=== PATIENT | female | born 1980 | race African-American/Black ===

== ENCOUNTER 2016-09-06 16:56 | Emergency (ER) | payer OTHER ==
[~2016-09-06] VITALS: Ht 170.2 cm; Wt 93.0 kg
--- NOTE | 2016-09-06 17:31 | PHYS DOC ---
Past Medical History Past Medical History: GERD, Other Additional Past Medical Histor: gestational diabetes Past Surgical History: Cholecystectomy, , Tubal ligation Additional Past Surgical Histo: dilation and curretage Alcohol Use: Occasionally Drug Use: None Adult General Chief Complaint Chief Complaint: FLU SYMPTOM [facility] HPI Patient is a 36 year old female presents emergency department stating that she was running a fever of 102 last night. She states that she's been taken Tylenol and DayQuil for the fever chills and generalized body aches and discomfort. Patient states she's had a cough has been nonproductive. She'll states that she has had shortness of air with chest discomfort in the center of her chest. No radiation of pain or discomfort. Patient states she has increased shortness of breath with ambulation. Review of Systems Review of Systems Constitutional: hx of fever Eyes: Denies change in visual acuity, redness, or eye pain [] HENT: Denies nasal congestion or sore throat [] Respiratory: cough c/o shortness of breath with exertion Cardiovascular: No additional information not addressed in HPI [] GI: Denies abdominal pain, nausea, vomiting, bloody stools or diarrhea [] : Denies dysuria or hematuria [] Musculoskeletal: Denies back pain or joint pain [] Integument: Denies rash or skin lesions [] Neurologic: Denies headache, focal weakness or sensory changes [] Current Medications Current Medications Current Medications Medications (Trade) Dose Ordered Sig/Katiana Start Time Stop Time Status Last Admin Dose Admin Albuterol/ Ipratropium (Duoneb) 3 ml 1X ONCE 09/06/16 17:45 09/06/16 17:46 DC 09/06/16 17:47 3 ML Ibuprofen (Motrin) 800 mg 1X ONCE 09/06/16 18:00 09/06/16 18:01 DC 09/06/16 17:55 800 MG Allergies Allergies Allergies Coded Allergies Type Severity Reaction Last Updated Verified No Known Drug Allergies 09/19/13 No Physical Exam Physical Exam Constitutional: Well developed, well nourished, no acute distress, non-toxic appearance. [] HENT: Normocephalic, atraumatic, bilateral external ears normal, oropharynx moist, no oral exudates, nose normal. Bilateral tympanic membranes appear to be normal. Eyes: PERRLA, EOMI, conjunctiva normal, no discharge. [] Neck: Normal range of motion, no tenderness, supple, no stridor. [] Cardiovascular:Heart rate regular rhythm, no murmur [] Lungs & Thorax: Bilateral breath sounds with bilateral wheezes noted per lower basis. Skin: Warm, dry, no erythema, no rash. [] Back: No tenderness Extremities: No tenderness, no cyanosis, no clubbing, ROM intact, no edema. [] Neurologic: Alert and oriented X 3, normal motor function, normal sensory function, no focal deficits noted. [] Psychologic: Affect normal, judgement normal, mood normal. [] Current Patient Data Vital Signs Vital Signs Date Time Temp Pulse Resp B/P Pulse Ox O2 Delivery O2 Flow Rate FiO2 09/06/16 17:49 100 Room Air 09/06/16 17:25 101.8 105 16 101.8 Lab Values Laboratory Tests Test 09/06/16 17:30 Influenza Type A Antigen Negative (NEGATIVE) Influenza Type B Antigen Negative (NEGATIVE) EKG EKG [] Radiology/Procedures Radiology/Procedures [] Course & Med Decision Making Course & Med Decision Making Pertinent Labs and Imaging studies reviewed. (See chart for details) X-ray was negative per Dr. Woods. Patient was provided with a respiratory treatment which she states she is able to breathe much easier now breath sounds are clear bilaterally. Influenza swabs were negative. She was provided with ibuprofen here in the emergency department. Temperature has decreased to 99.6 after receiving the ibuprofen. BP 149/91. Patient be encouraged to monitor her blood pressure for the next week and follow-up with her primary care physician. She'll be discharged home with Zithromax, prednisone and an pro-air. Signs and symptoms to return back to emergency department as been provided. Patient agrees with discharge instructions, treatment regimens and follow-up recommendations. [] Dragon Disclaimer Dragon Disclaimer This electronic medical record was generated, in whole or in part, using a voice recognition dictation system. Departure Departure Impression: Primary Impression: Bronchitis Disposition: 01 HOME, SELF-CARE Condition: STABLE Referrals: NO PCP (PCP) Patient Instructions: Acute Bronchitis, [id number] Additional Instructions: Activity as tolerated Patient is prescribed. Tylenol and ibuprofen for fever chills or generalized body aches and discomfort. Drink plenty of fluids. Monitor your blood pressure and follow-up with primary care physician Follow-up with her primary care physician within the week. Return to emergency department for signs and symptoms of become worse. Scripts Albuterol Sulfate (Proair Hfa Inhaler)8.5 Gm [id number] Puff INH PRN Q6HRS PRN SHORTNESS OF BREATH #1 INHALER Prov:REY BRUNO APRN 09/06/16 Prednisone 20 Mg [id number] Mg PO DAILY #10 TAB Prov:REY BRUNO APRN 09/06/16 Azithromycin (Zithromax)250 Mg [id number] Mg PO DAILY ANTI-BIOTIC #6 TAB Ref 0 Take 2 tablets today then 1 tablet daily until gone Prov:REY BRUNO APRN 09/06/16 REY BRUNO APRN Sep 06, 2016 17:31
[2016-09-06] MEDS ORDERED: IPRATRPIUM/ALBUTEROL 0.5/2.5MG 3 ML NEBU. NEB ONE (17:45)
[2016-09-06] MEDS ORDERED: IBUPROFEN 800 MG TABLET. PO ONE (18:00)
[2016-09-06 18:02] LABS: OBC FLU VALID
[2016-09-06 18:19] VITALS: BP 149/91
[2016-09-06] MEDS ORDERED: PROAIR HFA8.5 GM INH (18:23)
[2016-09-06] MEDS ORDERED: AZIT250T PO (18:23)
[2016-09-06] MEDS ORDERED: PRED20TA PO (18:23)
--- NOTE | 2016-09-07 08:53 | RAD ---
Chest, 2 views, 09/06/2016: History: Fever, cough, congestion Comparison is made to a study from 08/15/2008. The heart size and pulmonary vascularity are normal. The lungs are clear. There is no evidence of pleural fluid. IMPRESSION: No acute cardiopulmonary abnormality is detected.
== END 2016-09-06 18:27 | disposition home or self-care (01) ==
LOC: ER 16:56
DX: J40 Bronchitis, not specified as acute or chronic (principal); K21.9 Gastro-esophageal reflux disease without esophagitis; Z90.49 Acquired absence of other specified parts of digestive tract; Z98.51 Tubal ligation status
CPT/HCPCS: 71020; 87804; 94250; 94640; 99284; J7620

== ENCOUNTER 2016-09-09 08:49 | Inpatient (IN) | payer OTHER ==
[~2016-09-09] VITALS: Ht 170.2 cm; Wt 93.0 kg
[~2016-09-09 08:49] MED LIST: AZIT250T PO; PRED20TA PO; PROAIR HFA8.5 GM INH
[2016-09-09] MEDS ORDERED: IV NORMAL SALINE 1000ML BAG 1,000 ML IV SCH (09:03)
[2016-09-09] MEDS ORDERED: MORPHINE SULFATE 10 MG/ML VIAL. IV ONE (09:15)
[2016-09-09] MEDS ORDERED: IPRATRPIUM/ALBUTEROL 0.5/2.5MG 3 ML NEBU. NEB ONE ×2 (09:15→12:00)
[2016-09-09] MEDS ORDERED: 0.9 % SODIUM CHLORIDE 10 ML DISP.SYRIN. IV ONE (09:15)
--- NOTE | 2016-09-09 09:15 | PHYS DOC ---
Past Medical History Past Medical History: GERD, Other Additional Past Medical Histor: gestational diabetes Past Surgical History: Cholecystectomy, , Tubal ligation Additional Past Surgical Histo: dilation and curretage Alcohol Use: Occasionally Drug Use: None Adult General Chief Complaint Chief Complaint: COUGH HPI HPI Patient is a 36 year old female presents emergency Department today with complaint of worsening cough and chest pain. Patient was seen here 3 days ago for cough, fever and body aches that began approximately 24 hours prior to being seen. She had a chest x-ray done at that time that did not show any evidence of pneumonia. She was placed on azithromycin, prednisone and albuterol. Patient states that she's progressively gotten worse over the past 3 days. She states that she's been having increasing chest pain since that period of time as well. She reports several episodes of cough with posttussive emesis. She states that she has decreased appetite as well. Patient denies any history of cardiopulmonary disease. Prior to her present illness, she had not been outside [facility], hospitalized on antibiotics within the previous 90 days. She does not have a current primary care doctor. Review of Systems Review of Systems Constitutional: Denies fever or chills [] Eyes: Denies change in visual acuity, redness, or eye pain [] HENT: Denies nasal congestion or sore throat [] Respiratory: Denies cough or shortness of breath [] Cardiovascular: No additional information not addressed in HPI [] GI: Denies abdominal pain, nausea, vomiting, bloody stools or diarrhea [] : Denies dysuria or hematuria [] Musculoskeletal: Denies back pain or joint pain [] Integument: Denies rash or skin lesions [] Neurologic: Denies headache, focal weakness or sensory changes [] Endocrine: Denies polyuria or polydipsia [] Current Medications Current Medications Current Medications Medications (Trade) Dose Ordered Sig/Katiana Start Time Stop Time Status Last Admin Dose Admin Albuterol/ Ipratropium (Duoneb) 3 ml 1X ONCE 09/09/16 09:15 09/09/16 09:16 DC 09/09/16 09:37 3 ML Info (Do NOT chart on this entry -- for MONITORING) 1 each PRN DAILY PRN 09/09/16 10:30 09/11/16 10:29 Iohexol (Omnipaque 300 Mg/ml) 75 ml 1X ONCE 09/09/16 10:15 09/09/16 10:16 DC 09/09/16 10:14 75 ML Morphine Sulfate 5 mg 1X ONCE 09/09/16 09:15 09/09/16 09:16 DC 09/09/16 09:30 5 MG Piperacillin Sod/ Tazobactam Sod 1 each 1 each PRN DAILY PRN 09/09/16 09:30 Piperacillin Sod/ Tazobactam Sod/ Sodium Chloride (Zosyn/Iv Sodium Chloride 0.9% 100ml) 100 ml @ 200 mls/hr 1X ONCE 09/09/16 09:45 09/09/16 10:14 DC 09/09/16 10:05 200 MLS/HR Sodium Chloride (Iv Sodium Chloride 0.9% 1000ml Bag) 1,000 ml @ 1,000 mls/hr Q1H 09/09/16 09:03 09/09/16 10:02 DC 09/09/16 09:30 1,000 MLS/HR Sodium Chloride 10 ml 10 ml 1X ONCE 09/09/16 09:15 09/09/16 09:16 DC Vancomycin HCl (Vanco Per Pharmacy) 1 each PRN DAILY PRN 09/09/16 09:30 Vancomycin HCl 2 gm/Sodium Chloride 500 ml @ 250 mls/hr 1X ONCE 09/09/16 10:00 09/09/16 11:59 DC 09/09/16 10:55 250 MLS/HR Allergies Allergies Allergies Coded Allergies Type Severity Reaction Last Updated Verified No Known Drug Allergies 09/19/13 No Physical Exam Physical Exam Constitutional: Well developed, well nourished,mild distress, non-toxic appearance. Patient is holding her ribs and coughing. She is crying. HENT: Normocephalic, atraumatic, bilateral external ears normal, oropharynx moist, no oral exudates, nose normal. [] Eyes: PERRLA, EOMI, conjunctiva normal, no discharge. [] Neck: Normal range of motion, no tenderness, supple, no stridor. [] Cardiovascular:Heart rate 124-132 regular rhythm, no murmur Lungs & Thorax: Patient does not demonstrate respiratory distress or respiratory fatigue. She does have decreased lung sounds bilaterally. This is with poor inspiratory effort is she states that it hurts when she takes deep breaths in. Oxygen saturation with good waveform is 92%. Skin: Patient's skin is warm and intact. She is diaphoretic. Back: No tenderness, no CVA tenderness. [] Extremities: No tenderness, no cyanosis, no clubbing, ROM intact, no edema. [] Neurologic: Alert and oriented X 3, normal motor function, normal sensory function, no focal deficits noted. [] Psychologic: Affect normal, judgement normal, mood normal. Current Patient Data Vital Signs Vital Signs Date Time Temp Pulse Resp B/P Pulse Ox O2 Delivery O2 Flow Rate FiO2 09/09/16 11:29 100 146/97 96 09/09/16 10:59 22 09/09/16 09:38 Room Air 09/09/16 08:58 99.0 99.0 Lab Values Laboratory Tests Test 09/09/16 09:27 White Blood Count 3.6x10^3/uL (4.0-11.0) L Red Blood Count 6.16x10^6/uL (3.50-5.40) H Hemoglobin 12.7g/dL (12.0-15.5) Hematocrit 41.3% (36.0-47.0) Mean Corpuscular Volume 67fL (79-100) L Mean Corpuscular Hemoglobin 21pg (25-35) L Mean Corpuscular Hemoglobin Concent 31g/dL (31-37) Red Cell Distribution Width 18.3% (11.5-14.5) H Platelet Count 322x10^3/uL (140-400) Neutrophils (%) (Auto) 40% (31-73) Lymphocytes (%) (Auto) 49% (24-48) H Monocytes (%) (Auto) 10% (0-9) H Eosinophils (%) (Auto) 0% (0-3) Basophils (%) (Auto) 1% (0-3) Neutrophils # (Auto) 1.4x10^3uL (1.8-7.7) L Lymphocytes # (Auto) 1.8x10^3/uL (1.0-4.8) Monocytes # (Auto) 0.3x10^3/uL (0.0-1.1) Eosinophils # (Auto) 0.0x10^3/uL (0.0-0.7) Basophils # (Auto) 0.0x10^3/uL (0.0-0.2) Platelet Estimate Adequate (ADEQUATE) Large Platelets Present Hypochromasia Marked Anisocytosis Present Microcytosis Marked Sodium Level 145mmol/L (136-145) Potassium Level 3.2mmol/L (3.5-5.1) L Chloride Level 105mmol/L (98-107) Carbon Dioxide Level 26mmol/L (21-32) Anion Gap 14 (6-14) Blood Urea Nitrogen 9mg/dL (7-20) Creatinine 1.2mg/dL (0.6-1.0) H Estimated GFR (Cockcroft-Gault) 60.8 BUN/Creatinine Ratio 8 (6-20) Glucose Level 138mg/dL (70-99) H Lactic Acid Level 1.6mmol/L (0.4-2.0) Calcium Level 9.5mg/dL (8.5-10.1) Total Bilirubin 0.7mg/dL (0.2-1.0) Aspartate Amino Transferase (AST) 22U/L (15-37) Alanine Aminotransferase (ALT) 22U/L (14-59) Alkaline Phosphatase 77U/L (46-116) Total Protein 9.2g/dL (6.4-8.2) H Albumin 4.4g/dL (3.4-5.0) Albumin/Globulin Ratio 0.9 (1.0-1.7) L Laboratory Tests 09/09/16 09:27 Laboratory Tests 09/09/16 09:27 EKG EKG Twelve-lead EKG performed at 955 shows a sinus tachycardia heart rate 118 bpm. There is no pathologic ST elevation or depression. MT interval is 120 ms with a QRS cheondoism of 82 ms and a QT duration of 504 ms. Radiology/Procedures Radiology/Procedures [ [facility] [address] [place], [place] [id number] IMAGING REPORT Signed PATIENT: RAE ROB ACCOUNT: [id number] : 1980 LOCATION: ER AGE: 36 SEX: F EXAM STATUS: REG ER ORD. PHYSICIAN: CHRISTOS JEFFERS REASON: chest pain, hypoxia, cough PROCEDURE: CTA CHEST CT of the chest with contrast, 09/09/2016: History: Chest pain and cough Multidetector CT imaging was performed following an IV bolus injection of iodinated contrast material. 2 injections were necessary due to difficulties with breath hold on the first sequence. Multiplanar reconstructions were produced including coronal MIP images. There are streak artifacts on these scans related to the patient's size. No filling defects are evident in the central pulmonary arteries to suggest pulmonary emboli. The thoracic aorta is of normal caliber. Granulomatous calcifications are present in the mediastinum and at the right hilum. No mediastinal or hilar adenopathy is evident. Mild groundglass opacities in the posterior aspects of both lungs most likely represent atelectasis. No dense pulmonary consolidation is seen. No significant pleural fluid is evident. IMPRESSION: 1. No CT evidence of central pulmonary emboli. 2. Mild dependent atelectasis in both lungs. PQRS Compliance Statement: One or more of the following individualized dose reduction techniques were utilized for this examination: 1. Automated exposure control 2. Adjustment of the mA and/or kV according to patient size 3. Use of iterative reconstruction technique DICTATED and SIGNED BY: RUBENS CHRISTIANSON MD DATE: 09/09/16 1034 CC: CHRISTOS JEFFERS; RENE LEYVA MD; NO PCP ~ Course & Med Decision Making Course & Med Decision Making Patient is obviously ill. Maintains in somewhat of a distraught state over her current illness. She presents at someone may have an as yet undiagnosed pulmonary disease or soft tissue connective disease. She has obviously been having problems with fever and has been getting worse even while on antibiotic therapy. Dragon Disclaimer Dragon Disclaimer This electronic medical record was generated, in whole or in part, using a voice recognition dictation system. Departure Departure Impression: Primary Impression: Tachycardia Additional Impressions: Bronchitis Hypovolemia Dyspnea Disposition: ADMITTED INPATIENT Admitting Physician: Abril Gibbs Condition: STABLE Referrals: NO PCP (PCP) Problem Qualifiers CHRISTOS JEFFERS Sep 09, 2016 09:15
[2016-09-09] MEDS ORDERED: PIP/TAZO PER PHARMACY MC PRN (09:30)
[2016-09-09 09:45] LABS: BASO % 1 % (0-3); EOS % 0 % (0-3); HEMATOCRIT 41.3 % (36.0-47.0); HEMOGLOBIN 12.7 g/dL (12.0-15.5); LYMPH # 1.8 x10^3/uL (1.0-4.8); LYMPH % 49 % (24-48); MEAN CORPUSCULAR HEMOGLOBIN 21 pg (25-35); MEAN CORPUSCULAR HGB CONC 31 g/dL (31-37); MEAN CORPUSCULAR VOLUME 67 fL (79-100); MONO % 10 % (0-9); NEUT % 40 % (31-73); PLATELET COUNT 322 x10^3/uL (140-400); RED BLOOD COUNT 6.16 x10^6/uL (3.50-5.40); RED CELL DISTRIBUTION WIDTH 18.3 % (11.5-14.5); WHITE BLOOD COUNT 3.6 x10^3/uL (4.0-11.0)
[2016-09-09] MEDS ORDERED: PIPERACILLIN/TAZOBACTAM 4.5 GM in IV NORMAL SALINE 100ML 100 ML IV ONE (09:45)
[2016-09-09] MEDS ORDERED: VANCOMYCIN 2 GM in IV NORMAL SALINE 500ML BAG 500 ML IV ONE (10:00)
[2016-09-09 10:04] LABS: CALCIUM 9.5 mg/dL (8.5-10.1); CREATININE 1.2 mg/dL (0.6-1.0); GFR 60.8; POTASSIUM 3.2 mmol/L (3.5-5.1)
[2016-09-09] MEDS ORDERED: IOHEXOL 300 MG/ML 75 ML VIAL IV ONE (10:15)
[2016-09-09 10:17] LABS: ALBUMIN 4.4 g/dL (3.4-5.0); ALBUMIN/GLOBULIN RATIO 0.9 (1.0-1.7); TOTAL BILIRUBIN 0.7 mg/dL (0.2-1.0); TOTAL PROTEIN 9.2 g/dL (6.4-8.2)
--- NOTE | 2016-09-09 10:23 | EKG ---
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
[2016-09-09] MEDS ORDERED: CONTRAST GIVEN MC PRN ×2 (10:30)
--- NOTE | 2016-09-09 10:45 | RAD ---
CT of the chest with contrast, 09/09/2016: History: Chest pain and cough Multidetector CT imaging was performed following an IV bolus injection of iodinated contrast material. 2 injections were necessary due to difficulties with breath hold on the first sequence. Multiplanar reconstructions were produced including coronal MIP images. There are streak artifacts on these scans related to the patient's size. No filling defects are evident in the central pulmonary arteries to suggest pulmonary emboli. The thoracic aorta is of normal caliber. Granulomatous calcifications are present in the mediastinum and at the right hilum. No mediastinal or hilar adenopathy is evident. Mild groundglass opacities in the posterior aspects of both lungs most likely represent atelectasis. No dense pulmonary consolidation is seen. No significant pleural fluid is evident. IMPRESSION: 1. No CT evidence of central pulmonary emboli. 2. Mild dependent atelectasis in both lungs. PQRS Compliance Statement: One or more of the following individualized dose reduction techniques were utilized for this examination: 1. Automated exposure control 2. Adjustment of the mA and/or kV according to patient size 3. Use of iterative reconstruction technique
[2016-09-09 11:26] LABS: ANISOCYTOSIS PRESENT; HYPOCHROMIA MARKED; MICROCYTOSIS MARKED; PLT ESTIMATE ADEQUATE (ADEQUATE)
[2016-09-09] MEDS ORDERED: ZOLPIDEM 5 MG TABLET. PO PRN (12:00)
[2016-09-09] MEDS ORDERED: ALBUTEROL SULFATE 2.5 MG/3 ML NEBU. NEB PRN (12:00)
[2016-09-09] MEDS: IV NORMAL SALINE 1000ML BAG 1,000 ML IV SCH (12:00)
[2016-09-09] MEDS ORDERED: ONDANSETRON PF 4 MG/2 ML VIAL. IV PRN (12:00)
[2016-09-09] MEDS: POTASSIUM CHLORIDE 10MEQ 100 ML IV SCH ×2 (12:20→14:20)
--- NOTE | 2016-09-09 12:24 | PDOC1 ---
History and Physical Date of Admission Date of Admission DATE: 09/09/16 TIME: 12:07 Identification/Chief Complaint Chief Complaint cough, soa Source Source: Chart review, Patient History of Present Illness History of Present Illness 36 y/o AA female with no significant past medical history, comes in maybe second visit to ER bec of URI sxs, denies fever, denies heavy smoking, coughing incessantly at ER. Pt did travel recently to [place], drove, stayed there few days. Pt is the only one sick in household. CT scan showed ground glass appearance, WBC 3. 7,. sinus tachy at 130s,. rest of labs and VS ok. 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 Past Medical History Cardiovascular: AFIB Pulmonary: No pertinent hx GI: No pertinent hx Heme/Onc: No pertinent hx Hepatobiliary: No pertinent hx Psych: No pertinent hx Rheumatologic: No pertinent hx Infectious disease: No pertinent hx ENT: No pertinent hx Renal/: No pertinent hx Endocrine: No pertinent hx Dermatology: No pertinent hx Past Surgical History Past Surgical History: No pertinent history Family History Family History: Family History Unknown Social History Smoke: No ALCOHOL: none Drugs: None Current Medications Current Medications Current Medications Sodium Chloride 10 ml 10 ml 1X ONCE IV ; Start 09/09/16 at 09:15; Stop at 09:16; Status DC Sodium Chloride (Iv Sodium Chloride 0.9% 1000ml Bag) 1,000 ml @ 1,000 mls/hr Q1H IV Last administered on 09/09/16 09:30; Start 09/09/16 at 09:03; Stop at 10:02; Status DC Morphine Sulfate 5 mg 1X ONCE IV Last administered on 09/09/16 09:30; Start 09/09/16 at 09:15; Stop 09/09/16 at 09:16; Status DC Albuterol/ Ipratropium (Duoneb) 3 ml 1X ONCE NEB Last administered on 09:37; Start 09/09/16 at 09:15; Stop 09/09/16 at 09:16; Status DC Vancomycin HCl (Vanco Per Pharmacy) 1 each PRN DAILY PRN MC SEE COMMENTS; Start 09/09/16 at 09:30; Status UNV Piperacillin Sod/ Tazobactam Sod 1 each 1 each PRN DAILY PRN MC SEE COMMENTS; Start 09/09/16 at 09:30; Status UNV Vancomycin HCl 2 gm/Sodium Chloride 500 ml @ 250 mls/hr 1X ONCE IV Last administered on 09/09/16 10:55; Start 09/09/16 at 10:00; Stop 09/09/16 at 11:59 ; Status DC Piperacillin Sod/ Tazobactam Sod/ Sodium Chloride (Zosyn/Iv Sodium Chloride 0.9 % 100ml) 100 ml @ 200 mls/hr 1X ONCE IV Last administered on 09/09/16 10:05 ; Start 09/09/16 at 09:45; Stop 09/09/16 at 10:14; Status DC Iohexol (Omnipaque 300 Mg/ml) 75 ml 1X ONCE IV Last administered on 09/09/16 10:14; Start 09/09/16 at 10:15; Stop 09/09/16 at 10:16; Status DC Info (Do NOT chart on this entry -- for MONITORING) 1 each PRN DAILY PRN MC SEE COMMENTS; Start 09/09/16 at 10:30; Stop 09/11/16 at 10:29 Info (Do NOT chart on this entry -- for MONITORING) 1 each PRN DAILY PRN MC SEE COMMENTS; Start 09/09/16 at 10:30; Stop 09/11/16 at 10:29 Albuterol/ Ipratropium (Duoneb) 3 ml 1X ONCE NEB Last administered on 12:06; Start 09/09/16 at 12:00; Stop 09/09/16 at 12:01; Status DC Albuterol/ Ipratropium (Duoneb) 3 ml QID NEB ; Start 09/09/16 at 13:00; Status UNV Guaifenesin (MUCINEX ER with DM) 1 tab BID PO ; Start 09/09/16 at 21:00; Status UNV Promethazine HCl/ Codeine (Phenergan With Codeine) 5 ml QID PO ; Start 09/09/16 at 13:00; Status UNV Acetaminophen (Tylenol) 500 mg PRN Q4HRS PRN PO fever; Start 09/09/16 at 12:00 ; Status UNV Ondansetron HCl (Zofran) 4 mg PRN Q6HRS PRN IV emesis; Start 09/09/16 at 12:00 ; Status UNV Zolpidem Tartrate 5 mg 5 mg PRN QHS PRN PO INSOMNIA; Start 09/09/16 at 12:00; Status UNV Sodium Chloride (Iv Sodium Chloride 0.9% 1000ml Bag) 1,000 ml @ 100 mls/hr CONT IV ; Start 09/09/16 at 12:00; Status UNV Albuterol Sulfate 2.5 mg 2.5 mg PRN Q2HR PRN NEB soa; Start 09/09/16 at 12:00; Status UNV Potassium Chloride (KCl Premix 10meq) 100 ml @ 100 mls/hr Q1H IV ; Start at 12:00; Stop 09/09/16 at 13:59; Status UNV Active Scripts Active Proair Hfa Inhaler (Albuterol Sulfate) 8.5 Gm Hfa.aer.ad 1 Puff INH PRN Q6HRS PRN Prednisone 20 Mg Tablet 40 Mg PO DAILY Zithromax (Azithromycin) 250 Mg Tablet 250 Mg PO DAILY Take 2 tablets today then 1 tablet daily until gone Allergies Allergies: Coded Allergies: No Known Drug Allergies (Unverified , 09/19/13) ROS Review of System limited, incessantly coughing Physical Exam General: No acute distress, Other (coughing) HEENT: Atraumatic, PERRLA Lungs: Normal air movement Heart: S1S2, RRR, other (sinus tachy) Breasts: Normal, Rt breast nml w/o mass, Lt breast nml w/o mass, Nipples normal Abdomen: Normal bowel sounds, Soft, No tenderness, No hepatosplenomegaly, No masses Rectal Exam: not examined Extremities: No clubbing, No cyanosis, No edema, Normal pulses, No tenderness/ swelling Skin: No rashes, No breakdown, No significant lesion Neuro: Normal gait, Normal speech, Strength at 5/5 X4 ext, Normal tone, Sensation intact, Cranial nerves 3-12 NL, Reflexes 2+ Psych/Mental Status: Mental status NL, Mood NL Vitals Vitals Vital Signs Date Time Temp Pulse Resp B/P Pulse Ox O2 Delivery O2 Flow Rate FiO2 09/09/16 11:29 100 146/97 96 3/23/17 10:59 22 09/09/16 09:38 Room Air 09/09/16 08:58 99.0 99.0 Labs Labs Laboratory Tests Test 09/09/16 09:27 White Blood Count 3.6x10^3/uL (4.0-11.0) Red Blood Count 6.16x10^6/uL (3.50-5.40) Hemoglobin 12.7g/dL (12.0-15.5) Hematocrit 41.3% (36.0-47.0) Mean Corpuscular Volume 67fL (79-100) Mean Corpuscular Hemoglobin 21pg (25-35) Mean Corpuscular Hemoglobin Concent 31g/dL (31-37) Red Cell Distribution Width 18.3% (11.5-14.5) Platelet Count 322x10^3/uL (140-400) Neutrophils (%) (Auto) 40% (31-73) Lymphocytes (%) (Auto) 49% (24-48) Monocytes (%) (Auto) 10% (0-9) Eosinophils (%) (Auto) 0% (0-3) Basophils (%) (Auto) 1% (0-3) Neutrophils # (Auto) 1.4x10^3uL (1.8-7.7) Lymphocytes # (Auto) 1.8x10^3/uL (1.0-4.8) Monocytes # (Auto) 0.3x10^3/uL (0.0-1.1) Eosinophils # (Auto) 0.0x10^3/uL (0.0-0.7) Basophils # (Auto) 0.0x10^3/uL (0.0-0.2) Platelet Estimate Adequate (ADEQUATE) Large Platelets Present Hypochromasia Marked Anisocytosis Present Microcytosis Marked Sodium Level 145mmol/L (136-145) Potassium Level 3.2mmol/L (3.5-5.1) Chloride Level 105mmol/L (98-107) Carbon Dioxide Level 26mmol/L (21-32) Anion Gap 14 (6-14) Blood Urea Nitrogen 9mg/dL (7-20) Creatinine 1.2mg/dL (0.6-1.0) Estimated GFR (Cockcroft-Gault) 60.8 BUN/Creatinine Ratio 8 (6-20) Glucose Level 138mg/dL (70-99) Lactic Acid Level 1.6mmol/L (0.4-2.0) Calcium Level 9.5mg/dL (8.5-10.1) Total Bilirubin 0.7mg/dL (0.2-1.0) Aspartate Amino Transf (AST/SGOT) 22U/L (15-37) Alanine Aminotransferase (ALT/SGPT) 22U/L (14-59) Alkaline Phosphatase 77U/L (46-116) Total Protein 9.2g/dL (6.4-8.2) Albumin 4.4g/dL (3.4-5.0) Albumin/Globulin Ratio 0.9 (1.0-1.7) Laboratory Tests Test 09/09/16 09:27 White Blood Count 3.6x10^3/uL (4.0-11.0) Red Blood Count 6.16x10^6/uL (3.50-5.40) Hemoglobin 12.7g/dL (12.0-15.5) Hematocrit 41.3% (36.0-47.0) Mean Corpuscular Volume 67fL (79-100) Mean Corpuscular Hemoglobin 21pg (25-35) Mean Corpuscular Hemoglobin Concent 31g/dL (31-37) Red Cell Distribution Width 18.3% (11.5-14.5) Platelet Count 322x10^3/uL (140-400) Neutrophils (%) (Auto) 40% (31-73) Lymphocytes (%) (Auto) 49% (24-48) Monocytes (%) (Auto) 10% (0-9) Eosinophils (%) (Auto) 0% (0-3) Basophils (%) (Auto) 1% (0-3) Neutrophils # (Auto) 1.4x10^3uL (1.8-7.7) Lymphocytes # (Auto) 1.8x10^3/uL (1.0-4.8) Monocytes # (Auto) 0.3x10^3/uL (0.0-1.1) Eosinophils # (Auto) 0.0x10^3/uL (0.0-0.7) Basophils # (Auto) 0.0x10^3/uL (0.0-0.2) Platelet Estimate Adequate (ADEQUATE) Large Platelets Present Hypochromasia Marked Anisocytosis Present Microcytosis Marked Sodium Level 145mmol/L (136-145) Potassium Level 3.2mmol/L (3.5-5.1) Chloride Level 105mmol/L (98-107) Carbon Dioxide Level 26mmol/L (21-32) Anion Gap 14 (6-14) Blood Urea Nitrogen 9mg/dL (7-20) Creatinine 1.2mg/dL (0.6-1.0) Estimated GFR (Cockcroft-Gault) 60.8 BUN/Creatinine Ratio 8 (6-20) Glucose Level 138mg/dL (70-99) Lactic Acid Level 1.6mmol/L (0.4-2.0) Calcium Level 9.5mg/dL (8.5-10.1) Total Bilirubin 0.7mg/dL (0.2-1.0) Aspartate Amino Transf (AST/SGOT) 22U/L (15-37) Alanine Aminotransferase (ALT/SGPT) 22U/L (14-59) Alkaline Phosphatase 77U/L (46-116) Total Protein 9.2g/dL (6.4-8.2) Albumin 4.4g/dL (3.4-5.0) Albumin/Globulin Ratio 0.9 (1.0-1.7) VTE Prophylaxis Ordered VTE Prophylaxis Devices: Yes VTE Pharmacological Prophylaxi: Yes Assessment/Plan Assessment/Plan 1. URI sxs 2. Ground glass findings on CT 3. SIRS no sepsis 4. SInus tachycardia 5. neutropenia 6. hypokalemia PLAn: IVF Check lactate broad spectrum Pulmo consult Nebs SPutum GS and cx BC COugh med Nebs Check influenza Replace K Seen at ER 5 Hook to tele 2 [place] AGUSTIN PEREZ MD Sep 09, 2016 12:24
[2016-09-09 13:30] VITALS: BP 130/99
[2016-09-09] MEDS: PROMETH/CODEINE 6.25/10MG 5 ML SYRUP. PO SCH ×3 (14:18→21:39)
[2016-09-09] MEDS: GUAIFENESIN DM 600/30MG TAB.ER.12H. PO SCH ×2 (14:18→21:39)
--- NOTE | 2016-09-09 14:18 | PDOC ---
Provider Note Provider Note dictated SUGEY GALO MD Sep 09, 2016 14:18
[2016-09-09 14:25] LABS: OBC FLU VALID
--- NOTE | 2016-09-09 14:49 | CONS ---
DATE OF CONSULTATION: ATTENDING PHYSICIAN: Dr. Gibbs. REASON FOR CONSULTATION: Abnormal CT chest. HISTORY OF PRESENT ILLNESS: The patient is a 36-year-old female who has no significant history of tobacco use or asthma. She said about ____ weeks ago, she had some GI symptoms with nausea, vomiting and diarrhea. She said she did initially felt better. She went to [place] for vacation and then she started developing a fever up to 102. She was seen in the ER. Initially, she said she was flu negative. She was seen again with complaint of a cough, which has been nonproductive. Occasionally, with white sputum and fever. The patient's T-max recorded in the ER was 99 degrees Fahrenheit. Influenza serology was performed and she is positive for influenza B. She also underwent CT of the chest, which showed no evidence of pulmonary emboli. There was mild ground glass opacities in the lower lobes, which may be consistent with mild pneumonitis. PAST MEDICAL HISTORY: Significant for history of AFib. No significant history of tobacco use. PAST SURGICAL HISTORY: None. FAMILY HISTORY: Noncontributory to lungs. SOCIAL HISTORY: Nonsmoker. ALLERGIES: None. MEDICATIONS: Reviewed including antibiotics, Zosyn and vancomycin. REVIEW OF SYSTEMS: Twelve-point system obtained. Pertinent positives discussed in my present illness, otherwise noncontributory. All systems that were negative were reviewed as well. PHYSICAL EXAMINATION: VITAL SIGNS: Blood pressure ____, T-max of 99 degrees Fahrenheit, pulse ox 100% on room air. NECK: Supple. LUNGS: With anterior rhonchi. CARDIOVASCULAR: Regular rate and rhythm. ABDOMEN: Soft. EXTREMITIES: With no pitting edema. LABORATORY DATA: Reviewed. Her white cell count 3.6, hemoglobin 12.7, platelets are 322. IMPRESSION: 1. Influenza B pneumonitis. 2. Abnormal CT chest with mild ground glass infiltrates in the lower lobes consistent with viral pneumonitis and dependent atelectasis. 3. Influenza B positive. RECOMMENDATIONS: 1. Continue respiratory isolation for influenza. 2. Initiate Tamiflu. 3. Antibiotics can be deescalated once fever is resolved. 4. Continue with present bronchodilators with DuoNebs. 5. Cough suppressant. 6. Had steroid inhaler, Pulmicort to reduce airway inflammation. SUGEY GALO MD DR: Barbara JOB#: [id number] / [id number] ABNER
[2016-09-09] MEDS: VANCOMYCIN PER PHARMACY MC PRN (15:03)
[2016-09-09] MEDS: IPRATRPIUM/ALBUTEROL 0.5/2.5MG 3 ML NEBU. NEB SCH ×2 (15:12→19:53)
[2016-09-09 15:19] VITALS: BP 140/90
[2016-09-09] MEDS: OSELTAMIVIR 75 MG CAPSULE PO SCH ×2 (16:25→21:39)
[2016-09-09] MEDS: PIPERACILLIN/TAZOBACTAM 4.5 GM in IV NORMAL SALINE 100ML 100 ML IV SCH (17:00)
--- NOTE | 2016-09-09 17:08 | ACF ---
Admission Forms Criteria TELEMETRY CARE Telemetry Admission Guidelines (Place 'X' for any and all applicable criteria): Admission to telemetry [A] may be indicated for ANY ONE of the following(1)(2)(3 )(4)(5): [ X]I. Cardiac disease, including ANY ONE of the following (9)(10)(11)(12)( 13): [ ]a) Postacute [place] [ ]b) Low-risk patients with ST-segment elevation [place] who have undergone successful percutaneous coronary intervention [ ]c) Unstable angina [ ]d) Suspected [place] (until it is ruled out) [ ]e) Post cardiac surgery (first 48 to 72 hours unless complications occur) [X ]f) Acute arrhythmias (including significant tachycardia or bradycardia) [B] [ ]g) Firing of an implantable cardioverter defibrillator [C] [ ]h) Suspected pacemaker or implantable cardioverter defibrillator malfunction (10) [ ]i) New administration or adjustment of an antiarrhythmic drug [D ] [ ]j) Child admitted for acute congestive heart failure [ ]j) Long QT syndrome [ ]k) Advanced heart block (eg, second-degree Mobitz type II, third- degree heart block) [ ]l) Acute myocarditis or pericarditis [ ]m) Short-term (ambulatory or inpatient) monitoring after a cardiac procedure as indicated by ANY ONE of the following [E]: [ ]i) Electrophysiologic studies [ ]ii) Percutaneous coronary intervention with stent placement [ ]iii) Pacemaker placement with cardiac conduction defect [ ]iv) Implantable cardiac defibrillator placement [ ]II. Drug overdose or poisoning with substance that causes arrhythmias or QT prolongation (eg, phenothiazines, sympathomimetic agents, cyclic antidepressants, digitalis, antiarrhythmic drugs)(15) [ ]III. Short-term (ambulatory or inpatient) monitoring after therapeutic or diagnostic procedure requiring conscious sedation or anesthesia (eg, endoscopy, elective cardioversion) [ ]IV. Acute cerebrovascular even[F](18) [ ]V. Massive blood transfusion (eg, at least 10 units of packed red blood cells in 24 hours) [ ]. Variceal bleeding after endoscopy, sclerotherapy, or IV vasopressin [ ]VII. Uncorrected electrolyte abnormalities associated with an increased risk of dangerous arrhythmia [G]; examples include [ ]a) Hyperkalemia with attributable ECG changes [ ]b) Potassium greater than 6.5 mmol/L (mEq/L) in a patient without history of chronic renal disease [ ]c) Prolonged QT attributed to hypokalemia, hypomagnesemia, or hypocalcemia [ ]VIII.Unexplained syncope or other neurologic event suspected of being due to arrhythmia due to a finding that increases risk; examples include(19)(20)(21): [ ]a) High-risk ECG findings (eg, bifascicular block, bradycardia, abnormal QT interval, ventricular pre- excitation) [ ]b) History of previous syncope due to arrhythmia [ ]c) Abnormal ventricular function (eg, reduced ejection fraction ) [ ]d) Exertional or supine syncope [ ]e) Concerning syncope characteristics (eg, sudden loss of consciousness without prodrome) [ ]f) Family history of sudden [ ]g) Use of arrhythmogenic medication [ ]h) Suspected cardiac ischemia [ ]i) Known channelopathy (eg, long QT syndrome, Brugada syndrome, or catecholaminergic paroxysmal ventricular tachycardia) [ ]j) Known structural heart disease (eg, hypertrophic cardiomyopathy , severe valvular disease) [ ]k) Palpitations preceding syncope The original [employer] content created by [employer] has been revised. The portions of the content which have been revised are identified through the use of italic text or in bold, and [facility] has neither reviewed nor approved the modified material. All other unmodified content is copyright [employer]. Please see references footnoted in the original [employer] edition 2016 Admission Criteria Met?: Yes DAILY OZUNA Sep 09, 2016 17:08
[2016-09-09 19:00] VITALS: BP 118/80
[2016-09-09] MEDS: VANCOMYCIN 1.5 GM in IV NORMAL SALINE 500ML BAG 500 ML IV SCH (22:43)
[2016-09-09 23:02] VITALS: BP 123/79
[2016-09-10] MEDS: IV NORMAL SALINE 1000ML BAG 1,000 ML IV SCH ×3 (00:57→08:00)
[2016-09-10] MEDS: PIPERACILLIN/TAZOBACTAM 4.5 GM in IV NORMAL SALINE 100ML 100 ML IV SCH ×4 (02:40→17:31)
[2016-09-10 03:10] VITALS: BP 119/76
[2016-09-10 05:20] LABS: BASO % 0 % (0-3); EOS % 1 % (0-3); HEMATOCRIT 31.9 % (36.0-47.0); HEMOGLOBIN 9.9 g/dL (12.0-15.5); LYMPH # 1.3 x10^3/uL (1.0-4.8); LYMPH % 46 % (24-48); MEAN CORPUSCULAR HEMOGLOBIN 21 pg (25-35); MEAN CORPUSCULAR HGB CONC 31 g/dL (31-37); MEAN CORPUSCULAR VOLUME 67 fL (79-100); MONO % 14 % (0-9); NEUT % 40 % (31-73); PLATELET COUNT 195 x10^3/uL (140-400); RED BLOOD COUNT 4.75 x10^6/uL (3.50-5.40); WHITE BLOOD COUNT 2.9 x10^3/uL (4.0-11.0)
[2016-09-10 05:43] LABS: CALCIUM 8.3 mg/dL (8.5-10.1); CREATININE 0.9 mg/dL (0.6-1.0); GFR 84.8; POTASSIUM 3.3 mmol/L (3.5-5.1)
[2016-09-10 07:20] VITALS: BP 103/85
[2016-09-10] MEDS: IPRATRPIUM/ALBUTEROL 0.5/2.5MG 3 ML NEBU. NEB SCH ×4 (07:27→19:54)
[2016-09-10] MEDS: PROMETH/CODEINE 6.25/10MG 5 ML SYRUP. PO SCH ×4 (08:04→20:41)
[2016-09-10] MEDS: OSELTAMIVIR 75 MG CAPSULE PO SCH ×2 (08:04→20:41)
[2016-09-10] MEDS: GUAIFENESIN DM 600/30MG TAB.ER.12H. PO SCH ×2 (08:04→20:41)
[2016-09-10] MEDS ORDERED: POTASSIUM CHLORIDE 20 MEQ TABLET.ER. PO ONE (10:30)
[2016-09-10] MEDS ORDERED: MAGNESIUM SULFATE 2GM 50 ML IV ONE (10:30)
--- NOTE | 2016-09-10 10:33 | PDOC ---
PROGRESS NOTES Chief Complaint Chief Complaint 1. URI w/ flu B pos 2. Ground glass findings on CT 3. inflenza w/ sepsis 4. neutropenia 5. hypokalemia 6. microcytic anemia, she reports heavy menses History of Present Illness History of Present Illness cont IV fluid, add K+, mag cont abx add addl antitussive pulm followin check IRon level, consider IV replacement, she reports no thalassemia hx cont nebs, poor appetite, Vitals Vitals Vital Signs Date Time Temp Pulse Resp B/P Pulse Ox O2 Delivery O2 Flow Rate FiO2 09/10/16 08:00 Room Air 09/10/16 07:28 99 09/10/16 07:20 97.9 83 16 103/85 97.9 Physical Exam General: Alert, Cooperative, mild distress, Other (coughing) Heart: Regular rate, Normal S1, Normal S2 Lungs: Other (rales, couse, deep inspiration elicited cough, no wheeze) Abdomen: Normal bowel sounds, Soft, No tenderness, No hepatosplenomegaly, No masses Extremities: No clubbing, No cyanosis, No edema, Normal pulses, No tenderness/ swelling Skin: No rashes, No breakdown, No significant lesion Labs LABS Laboratory Tests Test 09/09/16 12:34 09/10/16 03:15 Influenza Type A Antigen Negative (NEGATIVE) Influenza Type B Antigen Positive (NEGATIVE) White Blood Count 2.9x10^3/uL (4.0-11.0) Red Blood Count 4.75x10^6/uL (3.50-5.40) Hemoglobin 9.9g/dL (12.0-15.5) Hematocrit 31.9% (36.0-47.0) Mean Corpuscular Volume 67fL (79-100) Mean Corpuscular Hemoglobin 21pg (25-35) Mean Corpuscular Hemoglobin Concent 31g/dL (31-37) Red Cell Distribution Width 18.0% (11.5-14.5) Platelet Count 195x10^3/uL (140-400) Neutrophils (%) (Auto) 40% (31-73) Lymphocytes (%) (Auto) 46% (24-48) Monocytes (%) (Auto) 14% (0-9) Eosinophils (%) (Auto) 1% (0-3) Basophils (%) (Auto) 0% (0-3) Neutrophils # (Auto) 1.2x10^3uL (1.8-7.7) Lymphocytes # (Auto) 1.3x10^3/uL (1.0-4.8) Monocytes # (Auto) 0.4x10^3/uL (0.0-1.1) Eosinophils # (Auto) 0.0x10^3/uL (0.0-0.7) Basophils # (Auto) 0.0x10^3/uL (0.0-0.2) Sodium Level 145mmol/L (136-145) Potassium Level 3.3mmol/L (3.5-5.1) Chloride Level 108mmol/L (98-107) Carbon Dioxide Level 26mmol/L (21-32) Anion Gap 11 (6-14) Blood Urea Nitrogen 6mg/dL (7-20) Creatinine 0.9mg/dL (0.6-1.0) Estimated GFR (Cockcroft-Gault) 84.8 Glucose Level 112mg/dL (70-99) Calcium Level 8.3mg/dL (8.5-10.1) Review of Systems Review of Systems dyspnea, weakness, myalgia, anorexia Assessment and Plan Assessmemt and Plan Problems Medical Problems: (1) Bronchitis Status: Acute (2) Dyspnea Status: Acute (3) Hypovolemia Status: Acute (4) Tachycardia Status: Acute Problems: Comment Review of Relevant I have reviewed the following items domingo (where applicable) has been applied. Labs Laboratory Tests Test 09/09/16 09:27 09/09/16 12:34 09/10/16 03:15 White Blood Count 3.6x10^3/uL (4.0-11.0) 2.9x10^3/uL (4.0-11.0) Red Blood Count 6.16x10^6/uL (3.50-5.40) 4.75x10^6/uL (3.50-5.40) Hemoglobin 12.7g/dL (12.0-15.5) 9.9g/dL (12.0-15.5) Hematocrit 41.3% (36.0-47.0) 31.9% (36.0-47.0) Mean Corpuscular Volume 67fL (79-100) 67fL (79-100) Mean Corpuscular Hemoglobin 21pg (25-35) 21pg (25-35) Mean Corpuscular Hemoglobin Concent 31g/dL (31-37) 31g/dL (31-37) Red Cell Distribution Width 18.3% (11.5-14.5) 18.0% (11.5-14.5) Platelet Count 322x10^3/uL (140-400) 195x10^3/uL (140-400) Neutrophils (%) (Auto) 40% (31-73) 40% (31-73) Lymphocytes (%) (Auto) 49% (24-48) 46% (24-48) Monocytes (%) (Auto) 10% (0-9) 14% (0-9) Eosinophils (%) (Auto) 0% (0-3) 1% (0-3) Basophils (%) (Auto) 1% (0-3) 0% (0-3) Neutrophils # (Auto) 1.4x10^3uL (1.8-7.7) 1.2x10^3uL (1.8-7.7) Lymphocytes # (Auto) 1.8x10^3/uL (1.0-4.8) 1.3x10^3/uL (1.0-4.8) Monocytes # (Auto) 0.3x10^3/uL (0.0-1.1) 0.4x10^3/uL (0.0-1.1) Eosinophils # (Auto) 0.0x10^3/uL (0.0-0.7) 0.0x10^3/uL (0.0-0.7) Basophils # (Auto) 0.0x10^3/uL (0.0-0.2) 0.0x10^3/uL (0.0-0.2) Platelet Estimate Adequate (ADEQUATE) Large Platelets Present Hypochromasia Marked Anisocytosis Present Microcytosis Marked Sodium Level 145mmol/L (136-145) 145mmol/L (136-145) Potassium Level 3.2mmol/L (3.5-5.1) 3.3mmol/L (3.5-5.1) Chloride Level 105mmol/L (98-107) 108mmol/L (98-107) Carbon Dioxide Level 26mmol/L (21-32) 26mmol/L (21-32) Anion Gap 14 (6-14) 11 (6-14) Blood Urea Nitrogen 9mg/dL (7-20) 6mg/dL (7-20) Creatinine 1.2mg/dL (0.6-1.0) 0.9mg/dL (0.6-1.0) Estimated GFR (Cockcroft-Gault) 60.8 84.8 BUN/Creatinine Ratio 8 (6-20) Glucose Level 138mg/dL (70-99) 112mg/dL (70-99) Lactic Acid Level 1.6mmol/L (0.4-2.0) Calcium Level 9.5mg/dL (8.5-10.1) 8.3mg/dL (8.5-10.1) Total Bilirubin 0.7mg/dL (0.2-1.0) Aspartate Amino Transf (AST/SGOT) 22U/L (15-37) Alanine Aminotransferase (ALT/SGPT) 22U/L (14-59) Alkaline Phosphatase 77U/L (46-116) Total Protein 9.2g/dL (6.4-8.2) Albumin 4.4g/dL (3.4-5.0) Albumin/Globulin Ratio 0.9 (1.0-1.7) Influenza Type A Antigen Negative (NEGATIVE) Influenza Type B Antigen Positive (NEGATIVE) Laboratory Tests Test 09/09/16 12:34 09/10/16 03:15 Influenza Type A Antigen Negative (NEGATIVE) Influenza Type B Antigen Positive (NEGATIVE) White Blood Count 2.9x10^3/uL (4.0-11.0) Red Blood Count 4.75x10^6/uL (3.50-5.40) Hemoglobin 9.9g/dL (12.0-15.5) Hematocrit 31.9% (36.0-47.0) Mean Corpuscular Volume 67fL (79-100) Mean Corpuscular Hemoglobin 21pg (25-35) Mean Corpuscular Hemoglobin Concent 31g/dL (31-37) Red Cell Distribution Width 18.0% (11.5-14.5) Platelet Count 195x10^3/uL (140-400) Neutrophils (%) (Auto) 40% (31-73) Lymphocytes (%) (Auto) 46% (24-48) Monocytes (%) (Auto) 14% (0-9) Eosinophils (%) (Auto) 1% (0-3) Basophils (%) (Auto) 0% (0-3) Neutrophils # (Auto) 1.2x10^3uL (1.8-7.7) Lymphocytes # (Auto) 1.3x10^3/uL (1.0-4.8) Monocytes # (Auto) 0.4x10^3/uL (0.0-1.1) Eosinophils # (Auto) 0.0x10^3/uL (0.0-0.7) Basophils # (Auto) 0.0x10^3/uL (0.0-0.2) Sodium Level 145mmol/L (136-145) Potassium Level 3.3mmol/L (3.5-5.1) Chloride Level 108mmol/L (98-107) Carbon Dioxide Level 26mmol/L (21-32) Anion Gap 11 (6-14) Blood Urea Nitrogen 6mg/dL (7-20) Creatinine 0.9mg/dL (0.6-1.0) Estimated GFR (Cockcroft-Gault) 84.8 Glucose Level 112mg/dL (70-99) Calcium Level 8.3mg/dL (8.5-10.1) Microbiology 09/09/16 Blood Culture - Preliminary, Resulted NO GROWTH AFTER 1 DAY Medications Current Medications Sodium Chloride 10 ml 10 ml 1X ONCE IV ; Start 09/09/16 at 09:15; Stop at 09:16; Status DC Sodium Chloride (Iv Sodium Chloride 0.9% 1000ml Bag) 1,000 ml @ 1,000 mls/hr Q1H IV Last administered on 09/09/16 09:30; Start 09/09/16 at 09:03; Stop at 10:02; Status DC Morphine Sulfate 5 mg 1X ONCE IV Last administered on 09/09/16 09:30; Start 09/09/16 at 09:15; Stop 09/09/16 at 09:16; Status DC Albuterol/ Ipratropium (Duoneb) 3 ml 1X ONCE NEB Last administered on 09:37; Start 09/09/16 at 09:15; Stop 09/09/16 at 09:16; Status DC Vancomycin HCl (Vanco Per Pharmacy) 1 each PRN DAILY PRN MC SEE COMMENTS Last administered on 09/09/16 15:03; Start 09/09/16 at 09:30 Piperacillin Sod/ Tazobactam Sod 1 each 1 each PRN DAILY PRN MC SEE COMMENTS; Start 09/09/16 at 09:30 Vancomycin HCl 2 gm/Sodium Chloride 500 ml @ 250 mls/hr 1X ONCE IV Last administered on 09/09/16 10:55; Start 09/09/16 at 10:00; Stop 09/09/16 at 11:59 ; Status DC Piperacillin Sod/ Tazobactam Sod/ Sodium Chloride (Zosyn/Iv Sodium Chloride 0.9 % 100ml) 100 ml @ 200 mls/hr 1X ONCE IV Last administered on 09/09/16 10:05 ; Start 09/09/16 at 09:45; Stop 09/09/16 at 10:14; Status DC Iohexol (Omnipaque 300 Mg/ml) 75 ml 1X ONCE IV Last administered on 09/09/16 10:14; Start 09/09/16 at 10:15; Stop 09/09/16 at 10:16; Status DC Info (Do NOT chart on this entry -- for MONITORING) 1 each PRN DAILY PRN MC SEE COMMENTS; Start 09/09/16 at 10:30; Stop 09/11/16 at 10:29; Status Cancel Info (Do NOT chart on this entry -- for MONITORING) 1 each PRN DAILY PRN MC SEE COMMENTS; Start 09/09/16 at 10:30; Stop 09/11/16 at 10:29 Albuterol/ Ipratropium (Duoneb) 3 ml 1X ONCE NEB Last administered on 12:06; Start 09/09/16 at 12:00; Stop 09/09/16 at 12:01; Status DC Albuterol/ Ipratropium (Duoneb) 3 ml RTQID NEB Last administered on 09/10/16 07:27; Start 09/09/16 at 13:00 Guaifenesin (MUCINEX ER with DM) 1 tab BID PO Last administered on 09/10/16 08 :04; Start 09/09/16 at 13:00 Promethazine HCl/ Codeine (Phenergan With Codeine) 5 ml QID PO Last administered on 09/10/16 08:04; Start 09/09/16 at 13:00 Acetaminophen (Tylenol) 500 mg PRN Q4HRS PRN PO fever; Start 09/09/16 at 12:00 Ondansetron HCl (Zofran) 4 mg PRN Q6HRS PRN IV emesis; Start 09/09/16 at 12:00 Zolpidem Tartrate 5 mg 5 mg PRN QHS PRN PO INSOMNIA; Start 09/09/16 at 12:00 Sodium Chloride (Iv Sodium Chloride 0.9% 1000ml Bag) 1,000 ml @ 100 mls/hr Q10H IV Last administered on 09/10/16 02:35; Start 09/09/16 at 12:00 Albuterol Sulfate 2.5 mg 2.5 mg PRN Q2HR PRN NEB soa; Start 09/09/16 at 12:00 Potassium Chloride 100 ml @ 100 mls/hr Q1H IV Last administered on 09/09/16 14:20; Start 09/09/16 at 12:30; Stop 09/09/16 at 14:29; Status DC Piperacillin Sod/ Tazobactam Sod/ Sodium Chloride (Zosyn/Iv Sodium Chloride 0.9 % 100ml) 100 ml @ 200 mls/hr Q6HRS IV Last administered on 09/10/16 05:19; Start 09/09/16 at 17:00 Oseltamivir Phosphate 75 mg 75 mg BID PO Last administered on 09/10/16 08:04; Start 09/09/16 at 15:00; Stop 09/14/16 at 14:59 Vancomycin HCl/ Sodium Chloride (Iv Sodium Chloride 0.9% 500ml Bag) 500 ml @ 250 mls/hr Q12H IV Last administered on 09/09/16 22:43; Start 09/09/16 at 23: 00 Vancomycin HCl 1 each 1 each 1X ONCE MC ; Start 09/10/16 at 22:30; Stop at 22:31 Magnesium Sulfate/ Dextrose (Magnesium Sulfate PREMIX 2GM) 50 ml @ 25 mls/hr 1X ONCE IV ; Start 09/10/16 at 10:30; Stop 09/10/16 at 12:29 Potassium Chloride (Klor-Con) 40 meq 1X ONCE PO ; Start 09/10/16 at 10:30; Stop 09/10/16 at 10:31; Status DC Active Scripts Active Proair Hfa Inhaler (Albuterol Sulfate) 8.5 Gm Hfa.aer.ad 1 Puff INH PRN Q6HRS PRN Prednisone 20 Mg Tablet 40 Mg PO DAILY Zithromax (Azithromycin) 250 Mg Tablet 250 Mg PO DAILY Take 2 tablets today then 1 tablet daily until gone Vitals/I & O Vital Sign - Last 24 Hours 09/09/16 09/09/16 09/09/16 09/09/16 10:59 11:29 11:59 12:06 Pulse 92 100 104 Resp 22 B/P 119/75 146/97 152/72 Pulse Ox 97 96 100 O2 Delivery Room Air Room Air 09/09/16 09/09/16 09/09/16 09/09/16 12:29 12:34 12:59 13:21 Pulse 112 108 106 108 Resp B/P 148/89 140/95 Pulse Ox 97 97 98 98 O2 Delivery Room Air Room Air Room Air Room Air 09/09/16 09/09/16 09/09/16 09/09/16 13:30 15:13 15:19 16:42 Temp 98.1 97.9 98.1 97.9 Pulse 112 83 Resp 18 18 B/P 130/99 140/90 Pulse Ox 100 97 97 O2 Delivery Room Air Room Air Room Air Room Air 09/09/16 09/09/16 09/09/16 09/09/16 19:00 19:53 20:00 23:02 Temp 100.0 98.6 100.0 98.6 Pulse 108 96 Resp 20 18 B/P 118/80 123/79 Pulse Ox 98 96 O2 Delivery Room Air Room Air Room Air Room Air 09/10/16 09/10/16 09/10/16 09/10/16 03:10 07:20 07:28 08:00 Temp 98.2 97.9 98.2 97.9 Pulse 82 83 Resp 18 16 B/P 119/76 103/85 Pulse Ox 96 97 99 O2 Delivery Room Air Room Air Room Air Room Air Intake and Output 09/09/16 09/09/16 09/10/16 15:00 23:00 07:00 Intake Total 1700 ml 360 ml Balance 1700 ml 360 ml JEM FALL MD Sep 10, 2016 10:33
[2016-09-10 10:35] VITALS: BP 118/82
[2016-09-10 10:36] LABS: % SAT IRON 9 % (15-34); IRON,SERUM 31 ug/dL (50-170)
[2016-09-10] MEDS: HYDROCODONE/CHLORPHEN POLIS 5 ML SUS.ER.12H. PO PRN (10:43)
--- NOTE | 2016-09-10 12:18 | PDOC ---
PULMONARY PROGRESS NOTES Subjective has sob, cough, better, is weak, no pain, runny nose. Vitals Vital Signs Date Time Temp Pulse Resp B/P Pulse Ox O2 Delivery O2 Flow Rate FiO2 09/10/16 11:12 100 Room Air 09/10/16 10:35 98.8 96 16 118/82 98.8 Comments ros as mentioned as above other sys otherwise neg ROS: No Nausea, No Chest Pain, No Abdominal Pain General: Alert HEENT: Other (nc at perrl) Lungs: Clear, Other (rales, couse, deep inspiration elicited cough, no wheeze ) Cardiovascular: S1, S2 Abdomen: Soft, Non-tender Neuro Exam: Alert, Oriented Extremities: No Edema Skin: Warm Labs Laboratory Tests Test 09/09/16 09:27 09/09/16 12:34 09/10/16 03:15 White Blood Count 3.6x10^3/uL (4.0-11.0) 2.9x10^3/uL (4.0-11.0) Red Blood Count 6.16x10^6/uL (3.50-5.40) 4.75x10^6/uL (3.50-5.40) Hemoglobin 12.7g/dL (12.0-15.5) 9.9g/dL (12.0-15.5) Hematocrit 41.3% (36.0-47.0) 31.9% (36.0-47.0) Mean Corpuscular Volume 67fL (79-100) 67fL (79-100) Mean Corpuscular Hemoglobin 21pg (25-35) 21pg (25-35) Mean Corpuscular Hemoglobin Concent 31g/dL (31-37) 31g/dL (31-37) Red Cell Distribution Width 18.3% (11.5-14.5) 18.0% (11.5-14.5) Platelet Count 322x10^3/uL (140-400) 195x10^3/uL (140-400) Neutrophils (%) (Auto) 40% (31-73) 40% (31-73) Lymphocytes (%) (Auto) 49% (24-48) 46% (24-48) Monocytes (%) (Auto) 10% (0-9) 14% (0-9) Eosinophils (%) (Auto) 0% (0-3) 1% (0-3) Basophils (%) (Auto) 1% (0-3) 0% (0-3) Neutrophils # (Auto) 1.4x10^3uL (1.8-7.7) 1.2x10^3uL (1.8-7.7) Lymphocytes # (Auto) 1.8x10^3/uL (1.0-4.8) 1.3x10^3/uL (1.0-4.8) Monocytes # (Auto) 0.3x10^3/uL (0.0-1.1) 0.4x10^3/uL (0.0-1.1) Eosinophils # (Auto) 0.0x10^3/uL (0.0-0.7) 0.0x10^3/uL (0.0-0.7) Basophils # (Auto) 0.0x10^3/uL (0.0-0.2) 0.0x10^3/uL (0.0-0.2) Platelet Estimate Adequate (ADEQUATE) Large Platelets Present Hypochromasia Marked Anisocytosis Present Microcytosis Marked Sodium Level 145mmol/L (136-145) 145mmol/L (136-145) Potassium Level 3.2mmol/L (3.5-5.1) 3.3mmol/L (3.5-5.1) Chloride Level 105mmol/L (98-107) 108mmol/L (98-107) Carbon Dioxide Level 26mmol/L (21-32) 26mmol/L (21-32) Anion Gap 14 (6-14) 11 (6-14) Blood Urea Nitrogen 9mg/dL (7-20) 6mg/dL (7-20) Creatinine 1.2mg/dL (0.6-1.0) 0.9mg/dL (0.6-1.0) Estimated GFR (Cockcroft-Gault) 60.8 84.8 BUN/Creatinine Ratio 8 (6-20) Glucose Level 138mg/dL (70-99) 112mg/dL (70-99) Lactic Acid Level 1.6mmol/L (0.4-2.0) Calcium Level 9.5mg/dL (8.5-10.1) 8.3mg/dL (8.5-10.1) Total Bilirubin 0.7mg/dL (0.2-1.0) Aspartate Amino Transf (AST/SGOT) 22U/L (15-37) Alanine Aminotransferase (ALT/SGPT) 22U/L (14-59) Alkaline Phosphatase 77U/L (46-116) Total Protein 9.2g/dL (6.4-8.2) Albumin 4.4g/dL (3.4-5.0) Albumin/Globulin Ratio 0.9 (1.0-1.7) Influenza Type A Antigen Negative (NEGATIVE) Influenza Type B Antigen Positive (NEGATIVE) Iron Level 31ug/dL (50-170) Total Iron Binding Capacity 346ug/dL (250-450) Iron Saturation 9% (15-34) Laboratory Tests Test 09/09/16 12:34 09/10/16 03:15 Influenza Type A Antigen Negative (NEGATIVE) Influenza Type B Antigen Positive (NEGATIVE) White Blood Count 2.9x10^3/uL (4.0-11.0) Red Blood Count 4.75x10^6/uL (3.50-5.40) Hemoglobin 9.9g/dL (12.0-15.5) Hematocrit 31.9% (36.0-47.0) Mean Corpuscular Volume 67fL (79-100) Mean Corpuscular Hemoglobin 21pg (25-35) Mean Corpuscular Hemoglobin Concent 31g/dL (31-37) Red Cell Distribution Width 18.0% (11.5-14.5) Platelet Count 195x10^3/uL (140-400) Neutrophils (%) (Auto) 40% (31-73) Lymphocytes (%) (Auto) 46% (24-48) Monocytes (%) (Auto) 14% (0-9) Eosinophils (%) (Auto) 1% (0-3) Basophils (%) (Auto) 0% (0-3) Neutrophils # (Auto) 1.2x10^3uL (1.8-7.7) Lymphocytes # (Auto) 1.3x10^3/uL (1.0-4.8) Monocytes # (Auto) 0.4x10^3/uL (0.0-1.1) Eosinophils # (Auto) 0.0x10^3/uL (0.0-0.7) Basophils # (Auto) 0.0x10^3/uL (0.0-0.2) Sodium Level 145mmol/L (136-145) Potassium Level 3.3mmol/L (3.5-5.1) Chloride Level 108mmol/L (98-107) Carbon Dioxide Level 26mmol/L (21-32) Anion Gap 11 (6-14) Blood Urea Nitrogen 6mg/dL (7-20) Creatinine 0.9mg/dL (0.6-1.0) Estimated GFR (Cockcroft-Gault) 84.8 Glucose Level 112mg/dL (70-99) Calcium Level 8.3mg/dL (8.5-10.1) Iron Level 31ug/dL (50-170) Total Iron Binding Capacity 346ug/dL (250-450) Iron Saturation 9% (15-34) Medications Active Scripts Medications Dose Route/Sig Days Date Category Dose Instructions Proair Hfa Inhaler (Albuterol Sulfate) 8.5 Gm Hfa.aer.ad 1 Puff INH PRN Q6HRS PRN 09/06/16 Rx Prednisone 20 Mg Tablet 40 Mg PO DAILY 09/06/16 Rx Zithromax (Azithromycin) 250 Mg Tablet 250 Mg PO DAILY 09/06/16 Rx Take 2 tablets today then 1 tablet daily until gone Comments ct of chest reviewed. Impression . IMPRESSION: 1. Influenza B pneumonitis. 2. Abnormal CT chest with mild ground glass infiltrates in the lower lobes consistent with viral pneumonitis and dependent atelectasis. 3. Influenza B positive. Plan . RECOMMENDATIONS: 1. Continue respiratory isolation for influenza. 2. Initiate Tamiflu. 3. Antibiotics can be deescalated once fever is resolved. 4. Continue with present bronchodilators with DuoNebs. 5. Cough suppressant. 6. steroid inhaler, Pulmicort to reduce airway inflammation. 7. increase activity discussed w pt and her mother FIORDALIZAIrinaCORNELIUS MD Sep 10, 2016 12:18
[2016-09-10] MEDS: VANCOMYCIN 1.5 GM in IV NORMAL SALINE 500ML BAG 500 ML IV SCH ×2 (13:23→23:00)
[2016-09-10] MEDS: VANCOMYCIN PER PHARMACY MC PRN ×2 (13:35→23:39)
[2016-09-10 15:15] VITALS: BP 114/76
[2016-09-10 19:59] VITALS: BP 129/76
[2016-09-10] MEDS: ACETAMINOPHEN 500 MG TABLET PO PRN (20:42)
[2016-09-10 23:59] VITALS: BP 106/70
[2016-09-11] MEDS: PIPERACILLIN/TAZOBACTAM 4.5 GM in IV NORMAL SALINE 100ML 100 ML IV SCH ×4 (01:08→17:26)
[2016-09-11 03:00] VITALS: BP 119/73
[2016-09-11] MEDS: IV NORMAL SALINE 1000ML BAG 1,000 ML IV SCH (03:25)
[2016-09-11 04:53] LABS: BASO % 0 % (0-3); EOS % 1 % (0-3); HEMATOCRIT 33.4 % (36.0-47.0); HEMOGLOBIN 10.1 g/dL (12.0-15.5); LYMPH # 1.6 x10^3/uL (1.0-4.8); LYMPH % 48 % (24-48); MEAN CORPUSCULAR HEMOGLOBIN 20 pg (25-35); MEAN CORPUSCULAR HGB CONC 30 g/dL (31-37); MEAN CORPUSCULAR VOLUME 68 fL (79-100); MONO % 8 % (0-9); NEUT % 42 % (31-73); PLATELET COUNT 201 x10^3/uL (140-400); RED BLOOD COUNT 4.93 x10^6/uL (3.50-5.40); RED CELL DISTRIBUTION WIDTH 17.9 % (11.5-14.5); WHITE BLOOD COUNT 3.4 x10^3/uL (4.0-11.0)
[2016-09-11 05:28] LABS: CALCIUM 8.2 mg/dL (8.5-10.1); CREATININE 0.8 mg/dL (0.6-1.0); GFR 97.1; POTASSIUM 3.5 mmol/L (3.5-5.1)
[2016-09-11 07:00] VITALS: BP 130/82
[2016-09-11] MEDS: IPRATRPIUM/ALBUTEROL 0.5/2.5MG 3 ML NEBU. NEB SCH ×4 (07:34→19:39)
--- NOTE | 2016-09-11 08:01 | PDOC ---
PULMONARY PROGRESS NOTES Subjective has sob better, has cough, no pain, runny nose. Vitals Vital Signs Date Time Temp Pulse Resp B/P Pulse Ox O2 Delivery O2 Flow Rate FiO2 09/11/16 07:36 99 Room Air 09/11/16 03:00 97.5 78 20 119/73 97.5 Comments ros as mentioned as above other sys otherwise neg ROS: No Nausea, No Chest Pain, No Abdominal Pain General: Alert HEENT: Other (nc at perrl) Lungs: Clear, Crackles Cardiovascular: S1, S2 Abdomen: Soft, Non-tender Neuro Exam: Alert, Oriented Extremities: No Edema Skin: Warm Labs Laboratory Tests Test 09/09/16 09:27 09/09/16 12:34 09/10/16 03:15 09/10/16 22:22 White Blood Count 3.6x10^3/uL (4.0-11.0) 2.9x10^3/uL (4.0-11.0) Red Blood Count 6.16x10^6/uL (3.50-5.40) 4.75x10^6/uL (3.50-5.40) Hemoglobin 12.7g/dL (12.0-15.5) 9.9g/dL (12.0-15.5) Hematocrit 41.3% (36.0-47.0) 31.9% (36.0-47.0) Mean Corpuscular Volume 67fL (79-100) 67fL (79-100) Mean Corpuscular Hemoglobin 21pg (25-35) 21pg (25-35) Mean Corpuscular Hemoglobin Concent 31g/dL (31-37) 31g/dL (31-37) Red Cell Distribution Width 18.3% (11.5-14.5) 18.0% (11.5-14.5) Platelet Count 322x10^3/uL (140-400) 195x10^3/uL (140-400) Neutrophils (%) (Auto) 40% (31-73) 40% (31-73) Lymphocytes (%) (Auto) 49% (24-48) 46% (24-48) Monocytes (%) (Auto) 10% (0-9) 14% (0-9) Eosinophils (%) (Auto) 0% (0-3) 1% (0-3) Basophils (%) (Auto) 1% (0-3) 0% (0-3) Neutrophils # (Auto) 1.4x10^3uL (1.8-7.7) 1.2x10^3uL (1.8-7.7) Lymphocytes # (Auto) 1.8x10^3/uL (1.0-4.8) 1.3x10^3/uL (1.0-4.8) Monocytes # (Auto) 0.3x10^3/uL (0.0-1.1) 0.4x10^3/uL (0.0-1.1) Eosinophils # (Auto) 0.0x10^3/uL (0.0-0.7) 0.0x10^3/uL (0.0-0.7) Basophils # (Auto) 0.0x10^3/uL (0.0-0.2) 0.0x10^3/uL (0.0-0.2) Platelet Estimate Adequate (ADEQUATE) Large Platelets Present Hypochromasia Marked Anisocytosis Present Microcytosis Marked Sodium Level 145mmol/L (136-145) 145mmol/L (136-145) Potassium Level 3.2mmol/L (3.5-5.1) 3.3mmol/L (3.5-5.1) Chloride Level 105mmol/L (98-107) 108mmol/L (98-107) Carbon Dioxide Level 26mmol/L (21-32) 26mmol/L (21-32) Anion Gap 14 (6-14) 11 (6-14) Blood Urea Nitrogen 9mg/dL (7-20) 6mg/dL (7-20) Creatinine 1.2mg/dL (0.6-1.0) 0.9mg/dL (0.6-1.0) Estimated GFR (Cockcroft-Gault) 60.8 84.8 BUN/Creatinine Ratio 8 (6-20) Glucose Level 138mg/dL (70-99) 112mg/dL (70-99) Lactic Acid Level 1.6mmol/L (0.4-2.0) Calcium Level 9.5mg/dL (8.5-10.1) 8.3mg/dL (8.5-10.1) Total Bilirubin 0.7mg/dL (0.2-1.0) Aspartate Amino Transf (AST/SGOT) 22U/L (15-37) Alanine Aminotransferase (ALT/SGPT) 22U/L (14-59) Alkaline Phosphatase 77U/L (46-116) Total Protein 9.2g/dL (6.4-8.2) Albumin 4.4g/dL (3.4-5.0) Albumin/Globulin Ratio 0.9 (1.0-1.7) Influenza Type A Antigen Negative (NEGATIVE) Influenza Type B Antigen Positive (NEGATIVE) Iron Level 31ug/dL (50-170) Total Iron Binding Capacity 346ug/dL (250-450) Iron Saturation 9% (15-34) Vancomycin Level Trough 25.8mcg/mL (10.0-20.0) Vancomycin Last Dose Date 09/10/16 Vancomycin Last Dose Time 1100 Test 09/11/16 04:07 White Blood Count 3.4x10^3/uL (4.0-11.0) Red Blood Count 4.93x10^6/uL (3.50-5.40) Hemoglobin 10.1g/dL (12.0-15.5) Hematocrit 33.4% (36.0-47.0) Mean Corpuscular Volume 68fL (79-100) Mean Corpuscular Hemoglobin 20pg (25-35) Mean Corpuscular Hemoglobin Concent 30g/dL (31-37) Red Cell Distribution Width 17.9% (11.5-14.5) Platelet Count 201x10^3/uL (140-400) Neutrophils (%) (Auto) 42% (31-73) Lymphocytes (%) (Auto) 48% (24-48) Monocytes (%) (Auto) 8% (0-9) Eosinophils (%) (Auto) 1% (0-3) Basophils (%) (Auto) 0% (0-3) Neutrophils # (Auto) 1.4x10^3uL (1.8-7.7) Lymphocytes # (Auto) 1.6x10^3/uL (1.0-4.8) Monocytes # (Auto) 0.3x10^3/uL (0.0-1.1) Eosinophils # (Auto) 0.0x10^3/uL (0.0-0.7) Basophils # (Auto) 0.0x10^3/uL (0.0-0.2) Sodium Level 146mmol/L (136-145) Potassium Level 3.5mmol/L (3.5-5.1) Chloride Level 110mmol/L (98-107) Carbon Dioxide Level 26mmol/L (21-32) Anion Gap 10 (6-14) Blood Urea Nitrogen 5mg/dL (7-20) Creatinine 0.8mg/dL (0.6-1.0) Estimated GFR (Cockcroft-Gault) 97.1 Glucose Level 102mg/dL (70-99) Calcium Level 8.2mg/dL (8.5-10.1) Laboratory Tests Test 09/10/16 22:22 09/11/16 04:07 Vancomycin Level Trough 25.8mcg/mL (10.0-20.0) Vancomycin Last Dose Date 09/10/16 Vancomycin Last Dose Time 1100 White Blood Count 3.4x10^3/uL (4.0-11.0) Red Blood Count 4.93x10^6/uL (3.50-5.40) Hemoglobin 10.1g/dL (12.0-15.5) Hematocrit 33.4% (36.0-47.0) Mean Corpuscular Volume 68fL (79-100) Mean Corpuscular Hemoglobin 20pg (25-35) Mean Corpuscular Hemoglobin Concent 30g/dL (31-37) Red Cell Distribution Width 17.9% (11.5-14.5) Platelet Count 201x10^3/uL (140-400) Neutrophils (%) (Auto) 42% (31-73) Lymphocytes (%) (Auto) 48% (24-48) Monocytes (%) (Auto) 8% (0-9) Eosinophils (%) (Auto) 1% (0-3) Basophils (%) (Auto) 0% (0-3) Neutrophils # (Auto) 1.4x10^3uL (1.8-7.7) Lymphocytes # (Auto) 1.6x10^3/uL (1.0-4.8) Monocytes # (Auto) 0.3x10^3/uL (0.0-1.1) Eosinophils # (Auto) 0.0x10^3/uL (0.0-0.7) Basophils # (Auto) 0.0x10^3/uL (0.0-0.2) Sodium Level 146mmol/L (136-145) Potassium Level 3.5mmol/L (3.5-5.1) Chloride Level 110mmol/L (98-107) Carbon Dioxide Level 26mmol/L (21-32) Anion Gap 10 (6-14) Blood Urea Nitrogen 5mg/dL (7-20) Creatinine 0.8mg/dL (0.6-1.0) Estimated GFR (Cockcroft-Gault) 97.1 Glucose Level 102mg/dL (70-99) Calcium Level 8.2mg/dL (8.5-10.1) Medications Active Scripts Medications Dose Route/Sig Days Date Category Dose Instructions Proair Hfa Inhaler (Albuterol Sulfate) 8.5 Gm Hfa.aer.ad 1 Puff INH PRN Q6HRS PRN 09/06/16 Rx Prednisone 20 Mg Tablet 40 Mg PO DAILY 09/06/16 Rx Zithromax (Azithromycin) 250 Mg Tablet 250 Mg PO DAILY 09/06/16 Rx Take 2 tablets today then 1 tablet daily until gone Comments ct of chest reviewed. Impression . IMPRESSION: 1. Influenza B pneumonitis. 2. Abnormal CT chest with mild ground glass infiltrates in the lower lobes consistent with viral pneumonitis and dependent atelectasis. 3. Influenza B positive. Plan . RECOMMENDATIONS: 1. Continue respiratory isolation for influenza. 2. Initiate Tamiflu. 3. Antibiotics can be deescalated once fever is resolved. 4. Continue with present bronchodilators with DuoNebs. 5. add singulair 6. add steroid inhaler, Pulmicort to reduce airway inflammation. 7. increase activity discussed w pt and her mother CORNELIUS FUNES MD Sep 11, 2016 08:00
[2016-09-11] MEDS: PROMETH/CODEINE 6.25/10MG 5 ML SYRUP. PO SCH ×4 (09:15→20:54)
[2016-09-11] MEDS: GUAIFENESIN DM 600/30MG TAB.ER.12H. PO SCH ×2 (09:15→20:54)
[2016-09-11] MEDS: OSELTAMIVIR 75 MG CAPSULE PO SCH ×2 (09:16→20:54)
[2016-09-11 11:00] VITALS: BP 110/84
[2016-09-11] MEDS: VANCOMYCIN 1.25 GM in IV NORMAL SALINE 250ML 250 ML IV SCH ×2 (11:30→22:38)
[2016-09-11] MEDS: BUDESONIDE 0.5 MG/2 ML NEBU. NEB SCH ×2 (11:34→19:40)
[2016-09-11] MEDS: HYDROCODONE/CHLORPHEN POLIS 5 ML SUS.ER.12H. PO PRN (11:38)
--- NOTE | 2016-09-11 12:21 | PDOC ---
PROGRESS NOTES Chief Complaint Chief Complaint 1. URI w/ flu B pos 2. Ground glass findings on CT 3. inflenza w/ sepsis 4. neutropenia 5. hypokalemia 6. microcytic anemia, she reports heavy menses plan: 1. fu with pulm 2. on tamifllu vanco, zosyn 3. decrease ivf to 1/2 75/h 4. iron po dvt ppx History of Present Illness History of Present Illness low po intake still cough very weak fever last night Vitals Vitals Vital Signs Date Time Temp Pulse Resp B/P Pulse Ox O2 Delivery O2 Flow Rate FiO2 09/11/16 11:38 20 99 Room Air 09/11/16 07:00 98.1 84 130/82 98.1 Physical Exam General: Alert, Cooperative, mild distress, Other (coughing) Heart: Regular rate, Normal S1, Normal S2 Lungs: Clear, Other (rales, couse, deep inspiration elicited cough, no wheeze ) Abdomen: Normal bowel sounds, Soft, No tenderness, No hepatosplenomegaly, No masses Extremities: No clubbing, No cyanosis, No edema, Normal pulses, No tenderness/ swelling Skin: No rashes, No breakdown, No significant lesion Labs LABS Laboratory Tests Test 09/10/16 22:22 09/11/16 04:07 Vancomycin Level Trough 25.8mcg/mL (10.0-20.0) Vancomycin Last Dose Date 09/10/16 Vancomycin Last Dose Time 1100 White Blood Count 3.4x10^3/uL (4.0-11.0) Red Blood Count 4.93x10^6/uL (3.50-5.40) Hemoglobin 10.1g/dL (12.0-15.5) Hematocrit 33.4% (36.0-47.0) Mean Corpuscular Volume 68fL (79-100) Mean Corpuscular Hemoglobin 20pg (25-35) Mean Corpuscular Hemoglobin Concent 30g/dL (31-37) Red Cell Distribution Width 17.9% (11.5-14.5) Platelet Count 201x10^3/uL (140-400) Neutrophils (%) (Auto) 42% (31-73) Lymphocytes (%) (Auto) 48% (24-48) Monocytes (%) (Auto) 8% (0-9) Eosinophils (%) (Auto) 1% (0-3) Basophils (%) (Auto) 0% (0-3) Neutrophils # (Auto) 1.4x10^3uL (1.8-7.7) Lymphocytes # (Auto) 1.6x10^3/uL (1.0-4.8) Monocytes # (Auto) 0.3x10^3/uL (0.0-1.1) Eosinophils # (Auto) 0.0x10^3/uL (0.0-0.7) Basophils # (Auto) 0.0x10^3/uL (0.0-0.2) Sodium Level 146mmol/L (136-145) Potassium Level 3.5mmol/L (3.5-5.1) Chloride Level 110mmol/L (98-107) Carbon Dioxide Level 26mmol/L (21-32) Anion Gap 10 (6-14) Blood Urea Nitrogen 5mg/dL (7-20) Creatinine 0.8mg/dL (0.6-1.0) Estimated GFR (Cockcroft-Gault) 97.1 Glucose Level 102mg/dL (70-99) Calcium Level 8.2mg/dL (8.5-10.1) Review of Systems Review of Systems no chills chest pain Assessment and Plan Assessmemt and Plan Problems Medical Problems: (1) Bronchitis Status: Acute (2) Dyspnea Status: Acute (3) Hypovolemia Status: Acute (4) Tachycardia Status: Acute Problems: Comment Review of Relevant I have reviewed the following items [place]ingo (where applicable) has been applied. Labs Laboratory Tests Test 09/09/16 12:34 09/10/16 03:15 09/10/16 22:22 09/11/16 04:07 Influenza Type A Antigen Negative (NEGATIVE) Influenza Type B Antigen Positive (NEGATIVE) White Blood Count 2.9x10^3/uL (4.0-11.0) 3.4x10^3/uL (4.0-11.0) Red Blood Count 4.75x10^6/uL (3.50-5.40) 4.93x10^6/uL (3.50-5.40) Hemoglobin 9.9g/dL (12.0-15.5) 10.1g/dL (12.0-15.5) Hematocrit 31.9% (36.0-47.0) 33.4% (36.0-47.0) Mean Corpuscular Volume 67fL (79-100) 68fL (79-100) Mean Corpuscular Hemoglobin 21pg (25-35) 20pg (25-35) Mean Corpuscular Hemoglobin Concent 31g/dL (31-37) 30g/dL (31-37) Red Cell Distribution Width 18.0% (11.5-14.5) 17.9% (11.5-14.5) Platelet Count 195x10^3/uL (140-400) 201x10^3/uL (140-400) Neutrophils (%) (Auto) 40% (31-73) 42% (31-73) Lymphocytes (%) (Auto) 46% (24-48) 48% (24-48) Monocytes (%) (Auto) 14% (0-9) 8% (0-9) Eosinophils (%) (Auto) 1% (0-3) 1% (0-3) Basophils (%) (Auto) 0% (0-3) 0% (0-3) Neutrophils # (Auto) 1.2x10^3uL (1.8-7.7) 1.4x10^3uL (1.8-7.7) Lymphocytes # (Auto) 1.3x10^3/uL (1.0-4.8) 1.6x10^3/uL (1.0-4.8) Monocytes # (Auto) 0.4x10^3/uL (0.0-1.1) 0.3x10^3/uL (0.0-1.1) Eosinophils # (Auto) 0.0x10^3/uL (0.0-0.7) 0.0x10^3/uL (0.0-0.7) Basophils # (Auto) 0.0x10^3/uL (0.0-0.2) 0.0x10^3/uL (0.0-0.2) Sodium Level 145mmol/L (136-145) 146mmol/L (136-145) Potassium Level 3.3mmol/L (3.5-5.1) 3.5mmol/L (3.5-5.1) Chloride Level 108mmol/L (98-107) 110mmol/L (98-107) Carbon Dioxide Level 26mmol/L (21-32) 26mmol/L (21-32) Anion Gap 11 (6-14) 10 (6-14) Blood Urea Nitrogen 6mg/dL (7-20) 5mg/dL (7-20) Creatinine 0.9mg/dL (0.6-1.0) 0.8mg/dL (0.6-1.0) Estimated GFR (Cockcroft-Gault) 84.8 97.1 Glucose Level 112mg/dL (70-99) 102mg/dL (70-99) Calcium Level 8.3mg/dL (8.5-10.1) 8.2mg/dL (8.5-10.1) Iron Level 31ug/dL (50-170) Total Iron Binding Capacity 346ug/dL (250-450) Iron Saturation 9% (15-34) Vancomycin Level Trough 25.8mcg/mL (10.0-20.0) Vancomycin Last Dose Date 09/10/16 Vancomycin Last Dose Time 1100 Laboratory Tests Test 09/10/16 22:22 09/11/16 04:07 Vancomycin Level Trough 25.8mcg/mL (10.0-20.0) Vancomycin Last Dose Date 09/10/16 Vancomycin Last Dose Time 1100 White Blood Count 3.4x10^3/uL (4.0-11.0) Red Blood Count 4.93x10^6/uL (3.50-5.40) Hemoglobin 10.1g/dL (12.0-15.5) Hematocrit 33.4% (36.0-47.0) Mean Corpuscular Volume 68fL (79-100) Mean Corpuscular Hemoglobin 20pg (25-35) Mean Corpuscular Hemoglobin Concent 30g/dL (31-37) Red Cell Distribution Width 17.9% (11.5-14.5) Platelet Count 201x10^3/uL (140-400) Neutrophils (%) (Auto) 42% (31-73) Lymphocytes (%) (Auto) 48% (24-48) Monocytes (%) (Auto) 8% (0-9) Eosinophils (%) (Auto) 1% (0-3) Basophils (%) (Auto) 0% (0-3) Neutrophils # (Auto) 1.4x10^3uL (1.8-7.7) Lymphocytes # (Auto) 1.6x10^3/uL (1.0-4.8) Monocytes # (Auto) 0.3x10^3/uL (0.0-1.1) Eosinophils # (Auto) 0.0x10^3/uL (0.0-0.7) Basophils # (Auto) 0.0x10^3/uL (0.0-0.2) Sodium Level 146mmol/L (136-145) Potassium Level 3.5mmol/L (3.5-5.1) Chloride Level 110mmol/L (98-107) Carbon Dioxide Level 26mmol/L (21-32) Anion Gap 10 (6-14) Blood Urea Nitrogen 5mg/dL (7-20) Creatinine 0.8mg/dL (0.6-1.0) Estimated GFR (Cockcroft-Gault) 97.1 Glucose Level 102mg/dL (70-99) Calcium Level 8.2mg/dL (8.5-10.1) Microbiology 09/09/16 Blood Culture - Preliminary, Resulted NO GROWTH AFTER 2 DAYS 09/09/16 Gram Stain - Final, Complete Medications Current Medications Sodium Chloride 10 ml 10 ml 1X ONCE IV ; Start 09/09/16 at 09:15; Stop at 09:16; Status DC Sodium Chloride (Iv Sodium Chloride 0.9% 1000ml Bag) 1,000 ml @ 1,000 mls/hr Q1H IV Last administered on 09/09/16 09:30; Start 09/09/16 at 09:03; Stop at 10:02; Status DC Morphine Sulfate 5 mg 1X ONCE IV Last administered on 09/09/16 09:30; Start 09/09/16 at 09:15; Stop 09/09/16 at 09:16; Status DC Albuterol/ Ipratropium (Duoneb) 3 ml 1X ONCE NEB Last administered on 09:37; Start 09/09/16 at 09:15; Stop 09/09/16 at 09:16; Status DC Vancomycin HCl (Vanco Per Pharmacy) 1 each PRN DAILY PRN MC SEE COMMENTS Last administered on 09/10/16 23:39; Start 09/09/16 at 09:30 Piperacillin Sod/ Tazobactam Sod 1 each 1 each PRN DAILY PRN MC SEE COMMENTS; Start 09/09/16 at 09:30 Vancomycin HCl 2 gm/Sodium Chloride 500 ml @ 250 mls/hr 1X ONCE IV Last administered on 09/09/16 10:55; Start 09/09/16 at 10:00; Stop 09/09/16 at 11:59 ; Status DC Piperacillin Sod/ Tazobactam Sod/ Sodium Chloride (Zosyn/Iv Sodium Chloride 0.9 % 100ml) 100 ml @ 200 mls/hr 1X ONCE IV Last administered on 09/09/16 10:05 ; Start 09/09/16 at 09:45; Stop 09/09/16 at 10:14; Status DC Iohexol (Omnipaque 300 Mg/ml) 75 ml 1X ONCE IV Last administered on 09/09/16 10:14; Start 09/09/16 at 10:15; Stop 09/09/16 at 10:16; Status DC Info (Do NOT chart on this entry -- for MONITORING) 1 each PRN DAILY PRN MC SEE COMMENTS; Start 09/09/16 at 10:30; Stop 09/11/16 at 10:29; Status Cancel Info (Do NOT chart on this entry -- for MONITORING) 1 each PRN DAILY PRN MC SEE COMMENTS; Start 09/09/16 at 10:30; Stop 09/11/16 at 10:29; Status DC Albuterol/ Ipratropium (Duoneb) 3 ml 1X ONCE NEB Last administered on 12:06; Start 09/09/16 at 12:00; Stop 09/09/16 at 12:01; Status DC Albuterol/ Ipratropium (Duoneb) 3 ml RTQID NEB Last administered on 09/11/16 11:35; Start 09/09/16 at 13:00 Guaifenesin (MUCINEX ER with DM) 1 tab BID PO Last administered on 09/11/16 09 :15; Start 09/09/16 at 13:00 Promethazine HCl/ Codeine (Phenergan With Codeine) 5 ml QID PO Last administered on 09/11/16 09:15; Start 09/09/16 at 13:00 Acetaminophen (Tylenol) 500 mg PRN Q4HRS PRN PO fever Last administered on 09/10 20:42; Start 09/09/16 at 12:00 Ondansetron HCl (Zofran) 4 mg PRN Q6HRS PRN IV emesis; Start 09/09/16 at 12:00 Zolpidem Tartrate 5 mg 5 mg PRN QHS PRN PO INSOMNIA; Start 09/09/16 at 12:00 Sodium Chloride (Iv Sodium Chloride 0.9% 1000ml Bag) 1,000 ml @ 100 mls/hr Q10H IV Last administered on 09/10/16 00:57; Start 09/09/16 at 12:00 Albuterol Sulfate 2.5 mg 2.5 mg PRN Q2HR PRN NEB soa; Start 09/09/16 at 12:00 Potassium Chloride 100 ml @ 100 mls/hr Q1H IV Last administered on 09/09/16 14:20; Start 09/09/16 at 12:30; Stop 09/09/16 at 14:29; Status DC Piperacillin Sod/ Tazobactam Sod/ Sodium Chloride (Zosyn/Iv Sodium Chloride 0.9 % 100ml) 100 ml @ 200 mls/hr Q6HRS IV Last administered on 09/11/16 06:33; Start 09/09/16 at 17:00 Oseltamivir Phosphate 75 mg 75 mg BID PO Last administered on 09/11/16 09:16; Start 09/09/16 at 15:00; Stop 09/14/16 at 14:59 Vancomycin HCl/ Sodium Chloride (Iv Sodium Chloride 0.9% 500ml Bag) 500 ml @ 250 mls/hr Q12H IV Last administered on 09/10/16 13:23; Start 09/09/16 at 23: 00; Stop 09/10/16 at 23:05; Status DC Vancomycin HCl 1 each 1 each 1X ONCE MC Last administered on 09/10/16 22:30; Start 09/10/16 at 22:30; Stop 09/10/16 at 22:31; Status DC Magnesium Sulfate/ Dextrose (Magnesium Sulfate PREMIX 2GM) 50 ml @ 25 mls/hr 1X ONCE IV Last administered on 09/10/16 10:44; Start 09/10/16 at 10:30; Stop 09/10/16 at 12:29; Status DC Potassium Chloride (Klor-Con) 40 meq 1X ONCE PO Last administered on 10:44; Start 09/10/16 at 10:30; Stop 09/10/16 at 10:31; Status DC Chlorphenir/ Hydrocodone Polistirex 5 ml 5 ml PRN Q8HRS PRN PO COUGH Last administered on 09/11/16 11:38; Start 09/10/16 at 10:45 Vancomycin HCl/ Sodium Chloride (Iv Sodium Chloride 0.9% 250ml) 250 ml @ 167 mls/hr Q12H IV Last administered on 09/11/16 11:30; Start 09/11/16 at 11:00 Vancomycin HCl 1 each 1X ONCE MC ; Start 09/12/16 at 10:30; Stop 09/12/16 at 10 :31 Budesonide (Pulmicort) 0.5 mg RTBID NEB Last administered on 09/11/16 11:34; Start 09/11/16 at 09:00 Montelukast Sodium (Singulair) 10 mg QHS PO ; Start 09/11/16 at 21:00 Active Scripts Active Proair Hfa Inhaler (Albuterol Sulfate) 8.5 Gm Hfa.aer.ad 1 Puff INH PRN Q6HRS PRN Prednisone 20 Mg Tablet 40 Mg PO DAILY Zithromax (Azithromycin) 250 Mg Tablet 250 Mg PO DAILY Take 2 tablets today then 1 tablet daily until gone Vitals/I & O Vital Sign - Last 24 Hours 09/10/16 09/10/16 09/10/16 09/10/16 15:15 15:27 19:56 19:59 Temp 97.9 100.9 97.9 100.9 Pulse 86 85 Resp 18 18 B/P 114/76 129/76 Pulse Ox 96 99 100 99 O2 Delivery Room Air Room Air Room Air Room Air 09/10/16 09/10/16 09/11/16 09/11/16 20:00 23:59 03:00 07:00 Temp 99.7 97.5 98.1 99.7 97.5 98.1 Pulse 89 78 84 Resp 18 20 18 B/P 106/70 119/73 130/82 Pulse Ox 96 97 95 O2 Delivery Room Air Room Air Room Air Room Air 09/11/16 09/11/16 09/11/16 09/11/16 07:36 11:36 11:36 11:38 Resp 20 Pulse Ox 99 99 O2 Delivery Room Air Room Air Room Air Room Air Intake and Output 09/10/16 09/10/16 09/11/16 15:00 23:00 07:00 Intake Total 600 ml Balance 600 ml PAT CASTELLON MD Sep 11, 2016 12:21
[2016-09-11] MEDS: IV 1/2 NORMAL SALINE 1,000 ML IV SCH (13:13)
[2016-09-11 15:00] VITALS: BP 114/71
[2016-09-11] MEDS: DO NOT USE 40 MG/0.4 ML DISP.SYRIN SQ SCH (15:49)
[2016-09-11] MEDS: FERROUS SULFATE 325 MG TABLET PO SCH (17:26)
[2016-09-11 19:00] VITALS: BP 137/81
[2016-09-11] MEDS: MONTELUKAST SODIUM 10 MG TABLET. PO SCH (20:54)
[2016-09-11 23:00] VITALS: BP 120/74
[2016-09-12] MEDS: PIPERACILLIN/TAZOBACTAM 4.5 GM in IV NORMAL SALINE 100ML 100 ML IV SCH ×2 (00:49→05:45)
[2016-09-12] MEDS: IV 1/2 NORMAL SALINE 1,000 ML IV SCH ×2 (02:14→16:39)
[2016-09-12 03:00] VITALS: BP 125/77
[2016-09-12 07:00] VITALS: BP 143/86
[2016-09-12] MEDS: FERROUS SULFATE 325 MG TABLET PO SCH ×2 (08:40→16:39)
[2016-09-12] MEDS: PROMETH/CODEINE 6.25/10MG 5 ML SYRUP. PO SCH ×4 (08:41→21:10)
[2016-09-12] MEDS: OSELTAMIVIR 75 MG CAPSULE PO SCH ×2 (08:41→21:10)
[2016-09-12] MEDS: GUAIFENESIN DM 600/30MG TAB.ER.12H. PO SCH ×2 (08:41→21:10)
[2016-09-12] MEDS: BUDESONIDE 0.5 MG/2 ML NEBU. NEB SCH ×2 (09:06→19:38)
[2016-09-12] MEDS: IPRATRPIUM/ALBUTEROL 0.5/2.5MG 3 ML NEBU. NEB SCH ×4 (09:06→19:38)
[2016-09-12] MEDS: HYDROCODONE/CHLORPHEN POLIS 5 ML SUS.ER.12H. PO PRN (09:47)
[2016-09-12] MEDS ORDERED: ONDANSETRON PF 4 MG/2 ML VIAL. IV PRN (10:30)
[2016-09-12] MEDS: ACETAMINOPHEN 500 MG TABLET PO PRN (10:36)
[2016-09-12 10:50] VITALS: BP 133/79
--- NOTE | 2016-09-12 11:26 | PDOC ---
PULMONARY PROGRESS NOTES Subjective has sob better, has cough, slightly better, has n, no pain, no runny nose. Vitals Vital Signs Date Time Temp Pulse Resp B/P Pulse Ox O2 Delivery O2 Flow Rate FiO2 09/12/16 10:50 99.1 79 18 133/79 96 Room Air 99.1 Comments ros as mentioned as above other sys otherwise neg ROS: No Nausea, No Chest Pain, No Abdominal Pain General: Alert HEENT: Other (nc at perrl) Lungs: Clear, Crackles Cardiovascular: S1, S2 Abdomen: Soft, Non-tender Neuro Exam: Alert, Oriented Extremities: No Edema Skin: Warm Labs Laboratory Tests Test 09/10/16 22:22 09/11/16 04:07 09/12/16 10:25 Vancomycin Level Trough 25.8mcg/mL (10.0-20.0) 13.0mcg/mL (10.0-20.0) Vancomycin Last Dose Date 09/10/16 09/11/16 Vancomycin Last Dose Time 1100 2300 White Blood Count 3.4x10^3/uL (4.0-11.0) Red Blood Count 4.93x10^6/uL (3.50-5.40) Hemoglobin 10.1g/dL (12.0-15.5) Hematocrit 33.4% (36.0-47.0) Mean Corpuscular Volume 68fL (79-100) Mean Corpuscular Hemoglobin 20pg (25-35) Mean Corpuscular Hemoglobin Concent 30g/dL (31-37) Red Cell Distribution Width 17.9% (11.5-14.5) Platelet Count 201x10^3/uL (140-400) Neutrophils (%) (Auto) 42% (31-73) Lymphocytes (%) (Auto) 48% (24-48) Monocytes (%) (Auto) 8% (0-9) Eosinophils (%) (Auto) 1% (0-3) Basophils (%) (Auto) 0% (0-3) Neutrophils # (Auto) 1.4x10^3uL (1.8-7.7) Lymphocytes # (Auto) 1.6x10^3/uL (1.0-4.8) Monocytes # (Auto) 0.3x10^3/uL (0.0-1.1) Eosinophils # (Auto) 0.0x10^3/uL (0.0-0.7) Basophils # (Auto) 0.0x10^3/uL (0.0-0.2) Sodium Level 146mmol/L (136-145) Potassium Level 3.5mmol/L (3.5-5.1) Chloride Level 110mmol/L (98-107) Carbon Dioxide Level 26mmol/L (21-32) Anion Gap 10 (6-14) Blood Urea Nitrogen 5mg/dL (7-20) Creatinine 0.8mg/dL (0.6-1.0) Estimated GFR (Cockcroft-Gault) 97.1 Glucose Level 102mg/dL (70-99) Calcium Level 8.2mg/dL (8.5-10.1) Laboratory Tests Test 09/12/16 10:25 Vancomycin Level Trough 13.0mcg/mL (10.0-20.0) Vancomycin Last Dose Date 09/11/16 Vancomycin Last Dose Time 2300 Medications Active Scripts Medications Dose Route/Sig Days Date Category Dose Instructions Proair Hfa Inhaler (Albuterol Sulfate) 8.5 Gm Hfa.aer.ad 1 Puff INH PRN Q6HRS PRN 09/06/16 Rx Prednisone 20 Mg Tablet 40 Mg PO DAILY 09/06/16 Rx Zithromax (Azithromycin) 250 Mg Tablet 250 Mg PO DAILY 09/06/16 Rx Take 2 tablets today then 1 tablet daily until gone Comments ct of chest reviewed. Impression . IMPRESSION: 1. Influenza B pneumonitis. 2. Abnormal CT chest with mild ground glass infiltrates in the lower lobes consistent with viral pneumonitis and dependent atelectasis. 3. Influenza B positive. Plan . RECOMMENDATIONS: 1. Continue respiratory isolation for influenza. 2. Initiate Tamiflu. 3. Antibiotics can be deescalated once fever is resolved. 4. Continue with present bronchodilators with DuoNebs. 5. singulair 6. Pulmicort to reduce airway inflammation. 7. increase activity discussed w CORNELIUS Escobedo MD Sep 12, 2016 11:26
--- NOTE | 2016-09-12 11:46 | PDOC ---
PROGRESS NOTES Chief Complaint Chief Complaint 1. URI w/ flu B pos 2. Ground glass findings on CT 3. inflenza w/ sepsis 4. neutropenia 5. hypokalemia 6. microcytic anemia, she reports heavy menses plan: 1. fu with pulm 2. on tamifllu dc vanco, zosyn since no fever now as per pulm 3. decrease ivf to 1/2 75/h 4. iron po, iv x5ds dvt ppx History of Present Illness History of Present Illness low po intake still cough very weak fever resolve from 09/11 Vitals Vitals Vital Signs Date Time Temp Pulse Resp B/P Pulse Ox O2 Delivery O2 Flow Rate FiO2 09/12/16 10:50 99.1 79 18 133/79 96 Room Air 99.1 Physical Exam General: Alert, Cooperative, mild distress, Other (coughing) Heart: Regular rate, Normal S1, Normal S2 Lungs: Clear, Crackles Abdomen: Normal bowel sounds, Soft, No tenderness, No hepatosplenomegaly, No masses Extremities: No clubbing, No cyanosis, No edema, Normal pulses, No tenderness/ swelling Skin: No rashes, No breakdown, No significant lesion Labs LABS Laboratory Tests Test 09/12/16 10:25 Vancomycin Level Trough 13.0mcg/mL (10.0-20.0) Vancomycin Last Dose Date 09/11/16 Vancomycin Last Dose Time 2300 Review of Systems Review of Systems no fever, chills, sob or chest pain Assessment and Plan Assessmemt and Plan Problems Medical Problems: (1) Bronchitis Status: Acute (2) Dyspnea Status: Acute (3) Hypovolemia Status: Acute (4) Tachycardia Status: Acute Problems: Comment Review of Relevant I have reviewed the following items domingo (where applicable) has been applied. Labs Laboratory Tests Test 09/10/16 22:22 09/11/16 04:07 09/12/16 10:25 Vancomycin Level Trough 25.8mcg/mL (10.0-20.0) 13.0mcg/mL (10.0-20.0) Vancomycin Last Dose Date 09/10/16 09/11/16 Vancomycin Last Dose Time 1100 2300 White Blood Count 3.4x10^3/uL (4.0-11.0) Red Blood Count 4.93x10^6/uL (3.50-5.40) Hemoglobin 10.1g/dL (12.0-15.5) Hematocrit 33.4% (36.0-47.0) Mean Corpuscular Volume 68fL (79-100) Mean Corpuscular Hemoglobin 20pg (25-35) Mean Corpuscular Hemoglobin Concent 30g/dL (31-37) Red Cell Distribution Width 17.9% (11.5-14.5) Platelet Count 201x10^3/uL (140-400) Neutrophils (%) (Auto) 42% (31-73) Lymphocytes (%) (Auto) 48% (24-48) Monocytes (%) (Auto) 8% (0-9) Eosinophils (%) (Auto) 1% (0-3) Basophils (%) (Auto) 0% (0-3) Neutrophils # (Auto) 1.4x10^3uL (1.8-7.7) Lymphocytes # (Auto) 1.6x10^3/uL (1.0-4.8) Monocytes # (Auto) 0.3x10^3/uL (0.0-1.1) Eosinophils # (Auto) 0.0x10^3/uL (0.0-0.7) Basophils # (Auto) 0.0x10^3/uL (0.0-0.2) Sodium Level 146mmol/L (136-145) Potassium Level 3.5mmol/L (3.5-5.1) Chloride Level 110mmol/L (98-107) Carbon Dioxide Level 26mmol/L (21-32) Anion Gap 10 (6-14) Blood Urea Nitrogen 5mg/dL (7-20) Creatinine 0.8mg/dL (0.6-1.0) Estimated GFR (Cockcroft-Gault) 97.1 Glucose Level 102mg/dL (70-99) Calcium Level 8.2mg/dL (8.5-10.1) Laboratory Tests Test 09/12/16 10:25 Vancomycin Level Trough 13.0mcg/mL (10.0-20.0) Vancomycin Last Dose Date 09/11/16 Vancomycin Last Dose Time 2300 Microbiology 09/09/16 Blood Culture - Preliminary, Resulted NO GROWTH AFTER 3 DAYS 09/10/16 Sputum Culture - Preliminary, Resulted 09/10/16 Sputum Result 1 - Preliminary, Resulted Medications Current Medications Sodium Chloride 10 ml 10 ml 1X ONCE IV ; Start 09/09/16 at 09:15; Stop at 09:16; Status DC Sodium Chloride (Iv Sodium Chloride 0.9% 1000ml Bag) 1,000 ml @ 1,000 mls/hr Q1H IV Last administered on 09/09/16 09:30; Start 09/09/16 at 09:03; Stop at 10:02; Status DC Morphine Sulfate 5 mg 1X ONCE IV Last administered on 09/09/16 09:30; Start 09/09/16 at 09:15; Stop 09/09/16 at 09:16; Status DC Albuterol/ Ipratropium (Duoneb) 3 ml 1X ONCE NEB Last administered on 09:37; Start 09/09/16 at 09:15; Stop 09/09/16 at 09:16; Status DC Vancomycin HCl (Vanco Per Pharmacy) 1 each PRN DAILY PRN MC SEE COMMENTS Last administered on 09/10/16 23:39; Start 09/09/16 at 09:30 Piperacillin Sod/ Tazobactam Sod 1 each 1 each PRN DAILY PRN MC SEE COMMENTS; Start 09/09/16 at 09:30 Vancomycin HCl 2 gm/Sodium Chloride 500 ml @ 250 mls/hr 1X ONCE IV Last administered on 09/09/16 10:55; Start 09/09/16 at 10:00; Stop 09/09/16 at 11:59 ; Status DC Piperacillin Sod/ Tazobactam Sod/ Sodium Chloride (Zosyn/Iv Sodium Chloride 0.9 % 100ml) 100 ml @ 200 mls/hr 1X ONCE IV Last administered on 09/09/16 10:05 ; Start 09/09/16 at 09:45; Stop 09/09/16 at 10:14; Status DC Iohexol (Omnipaque 300 Mg/ml) 75 ml 1X ONCE IV Last administered on 09/09/16 10:14; Start 09/09/16 at 10:15; Stop 09/09/16 at 10:16; Status DC Info (Do NOT chart on this entry -- for MONITORING) 1 each PRN DAILY PRN MC SEE COMMENTS; Start 09/09/16 at 10:30; Stop 09/11/16 at 10:29; Status Cancel Info (Do NOT chart on this entry -- for MONITORING) 1 each PRN DAILY PRN MC SEE COMMENTS; Start 09/09/16 at 10:30; Stop 09/11/16 at 10:29; Status DC Albuterol/ Ipratropium (Duoneb) 3 ml 1X ONCE NEB Last administered on 12:06; Start 09/09/16 at 12:00; Stop 09/09/16 at 12:01; Status DC Albuterol/ Ipratropium (Duoneb) 3 ml RTQID NEB Last administered on 09/12/16 09:06; Start 09/09/16 at 13:00 Guaifenesin (MUCINEX ER with DM) 1 tab BID PO Last administered on 09/12/16 08 :41; Start 09/09/16 at 13:00 Promethazine HCl/ Codeine (Phenergan With Codeine) 5 ml QID PO Last administered on 09/12/16 08:41; Start 09/09/16 at 13:00 Acetaminophen (Tylenol) 500 mg PRN Q4HRS PRN PO fever Last administered on 09/12 10:36; Start 09/09/16 at 12:00 Ondansetron HCl (Zofran) 4 mg PRN Q6HRS PRN IV emesis Last administered on 09/12 10:37; Start 09/09/16 at 12:00 Zolpidem Tartrate 5 mg 5 mg PRN QHS PRN PO INSOMNIA; Start 09/09/16 at 12:00 Sodium Chloride (Iv Sodium Chloride 0.9% 1000ml Bag) 1,000 ml @ 100 mls/hr Q10H IV Last administered on 09/10/16 00:57; Start 09/09/16 at 12:00; Stop at 12:20; Status DC Albuterol Sulfate 2.5 mg 2.5 mg PRN Q2HR PRN NEB soa; Start 09/09/16 at 12:00 Potassium Chloride 100 ml @ 100 mls/hr Q1H IV Last administered on 09/09/16 14:20; Start 09/09/16 at 12:30; Stop 09/09/16 at 14:29; Status DC Piperacillin Sod/ Tazobactam Sod/ Sodium Chloride (Zosyn/Iv Sodium Chloride 0.9 % 100ml) 100 ml @ 200 mls/hr Q6HRS IV Last administered on 09/12/16 05:45; Start 09/09/16 at 17:00 Oseltamivir Phosphate 75 mg 75 mg BID PO Last administered on 09/12/16 08:41; Start 09/09/16 at 15:00; Stop 09/14/16 at 14:59 Vancomycin HCl/ Sodium Chloride (Iv Sodium Chloride 0.9% 500ml Bag) 500 ml @ 250 mls/hr Q12H IV Last administered on 09/10/16 13:23; Start 09/09/16 at 23: 00; Stop 09/10/16 at 23:05; Status DC Vancomycin HCl 1 each 1 each 1X ONCE MC Last administered on 09/10/16 22:30; Start 09/10/16 at 22:30; Stop 09/10/16 at 22:31; Status DC Magnesium Sulfate/ Dextrose (Magnesium Sulfate PREMIX 2GM) 50 ml @ 25 mls/hr 1X ONCE IV Last administered on 09/10/16 10:44; Start 09/10/16 at 10:30; Stop 09/10/16 at 12:29; Status DC Potassium Chloride (Klor-Con) 40 meq 1X ONCE PO Last administered on 10:44; Start 09/10/16 at 10:30; Stop 09/10/16 at 10:31; Status DC Chlorphenir/ Hydrocodone Polistirex 5 ml 5 ml PRN Q8HRS PRN PO COUGH Last administered on 09/12/16 09:47; Start 09/10/16 at 10:45 Vancomycin HCl/ Sodium Chloride (Iv Sodium Chloride 0.9% 250ml) 250 ml @ 167 mls/hr Q12H IV Last administered on 09/11/16 22:38; Start 09/11/16 at 11:00 Vancomycin HCl 1 each 1X ONCE MC ; Start 09/12/16 at 10:30; Stop 09/12/16 at 10 :31; Status DC Budesonide (Pulmicort) 0.5 mg RTBID NEB Last administered on 09/12/16 09:06; Start 09/11/16 at 09:00 Montelukast Sodium 10 mg 10 mg QHS PO Last administered on 09/11/16 20:54; Start 09/11/16 at 21:00 Sodium Chloride (Iv Sodium Chloride 0.45%) 1,000 ml @ 75 mls/hr [id number] IV Last administered on 09/12/16 02:14; Start 09/11/16 at 12:30 Ferrous Sulfate (Feosol) 325 mg BIDWMEALS PO Last administered on 09/12/16 08: 40; Start 09/11/16 at 17:00 Enoxaparin Sodium (Lovenox 40mg Syringe) 40 mg DAILY16 SQ ; Start 09/11/16 at 16 :00 Ondansetron HCl (Zofran) 4 mg PRN Q6HRS PRN IV NAUSEA/VOMITING; Start 09/12/16 at 10:30 Active Scripts Active Proair Hfa Inhaler (Albuterol Sulfate) 8.5 Gm Hfa.aer.ad 1 Puff INH PRN Q6HRS PRN Prednisone 20 Mg Tablet 40 Mg PO DAILY Zithromax (Azithromycin) 250 Mg Tablet 250 Mg PO DAILY Take 2 tablets today then 1 tablet daily until gone Vitals/I & O Vital Sign - Last 24 Hours 09/11/16 09/11/16 09/11/16 09/11/16 12:38 15:00 16:34 19:00 Temp 98.1 97.9 98.1 97.9 Pulse 78 82 Resp 20 18 18 B/P 114/71 137/81 Pulse Ox 99 99 99 O2 Delivery Room Air Room Air Room Air Room Air 09/11/16 09/11/16 09/11/16 09/12/16 19:41 20:11 23:00 03:00 Temp 98.1 97.9 98.1 97.9 Pulse 77 71 Resp 18 18 B/P 120/74 125/77 Pulse Ox 98 97 O2 Delivery Room Air Room Air Room Air Room Air 09/12/16 09/12/16 09/12/16 09/12/16 07:00 09:08 09:08 09:47 Temp 98.8 98.8 Pulse 93 Resp 18 20 B/P 143/86 Pulse Ox 97 97 97 97 O2 Delivery Room Air Room Air Room Air Room Air 09/12/16 10:50 Temp 99.1 99.1 Pulse 79 Resp 18 B/P 133/79 Pulse Ox 96 O2 Delivery Room Air Intake and Output 09/11/16 09/11/16 09/12/16 15:00 23:00 07:00 Intake Total 830 ml Balance 830 ml PAT CASTELLON MD Sep 12, 2016 11:46
[2016-09-12 12:23] LABS: BASO % 0 % (0-3); EOS % 1 % (0-3); HEMATOCRIT 33.6 % (36.0-47.0); HEMOGLOBIN 10.2 g/dL (12.0-15.5); LYMPH # 0.9 x10^3/uL (1.0-4.8); LYMPH % 18 % (24-48); MEAN CORPUSCULAR HEMOGLOBIN 21 pg (25-35); MEAN CORPUSCULAR HGB CONC 30 g/dL (31-37); MEAN CORPUSCULAR VOLUME 68 fL (79-100); MONO % 6 % (0-9); NEUT % 75 % (31-73); PLATELET COUNT 198 x10^3/uL (140-400); RED BLOOD COUNT 4.96 x10^6/uL (3.50-5.40); RED CELL DISTRIBUTION WIDTH 18.2 % (11.5-14.5); WHITE BLOOD COUNT 5.2 x10^3/uL (4.0-11.0)
[2016-09-12] MEDS: IRON SUCROSE COMPLEX 200 MG in IV NORMAL SALINE 100ML 100 ML IV SCH (12:26)
[2016-09-12 12:32] LABS: CALCIUM 8.7 mg/dL (8.5-10.1); CREATININE 0.9 mg/dL (0.6-1.0); GFR 84.8; POTASSIUM 3.5 mmol/L (3.5-5.1)
[2016-09-12 15:00] VITALS: BP 111/71
[2016-09-12] MEDS: DO NOT USE 40 MG/0.4 ML DISP.SYRIN SQ SCH (16:39)
[2016-09-12 19:20] VITALS: BP 134/77
[2016-09-12] MEDS: MONTELUKAST SODIUM 10 MG TABLET. PO SCH (21:10)
[2016-09-12 23:03] VITALS: BP 132/81
[2016-09-13 02:41] VITALS: BP 102/64
[2016-09-13] MEDS: IV 1/2 NORMAL SALINE 1,000 ML IV SCH ×2 (04:49→20:43)
[2016-09-13 05:01] LABS: BASO % 0 % (0-3); EOS % 2 % (0-3); HEMATOCRIT 31.5 % (36.0-47.0); HEMOGLOBIN 9.5 g/dL (12.0-15.5); LYMPH # 1.7 x10^3/uL (1.0-4.8); LYMPH % 34 % (24-48); MEAN CORPUSCULAR HEMOGLOBIN 21 pg (25-35); MEAN CORPUSCULAR HGB CONC 30 g/dL (31-37); MEAN CORPUSCULAR VOLUME 68 fL (79-100); MONO % 8 % (0-9); NEUT % 57 % (31-73); PLATELET COUNT 207 x10^3/uL (140-400); RED BLOOD COUNT 4.62 x10^6/uL (3.50-5.40); RED CELL DISTRIBUTION WIDTH 18.1 % (11.5-14.5)
[2016-09-13 05:19] LABS: CALCIUM 8.8 mg/dL (8.5-10.1); CREATININE 0.8 mg/dL (0.6-1.0); GFR 97.1; POTASSIUM 3.5 mmol/L (3.5-5.1)
[2016-09-13 07:10] VITALS: BP 101/59
[2016-09-13] MEDS: BUDESONIDE 0.5 MG/2 ML NEBU. NEB SCH ×2 (07:41→19:37)
[2016-09-13] MEDS: IPRATRPIUM/ALBUTEROL 0.5/2.5MG 3 ML NEBU. NEB SCH ×4 (07:41→19:37)
[2016-09-13] MEDS: PROMETH/CODEINE 6.25/10MG 5 ML SYRUP. PO SCH ×4 (08:23→20:43)
[2016-09-13] MEDS: GUAIFENESIN DM 600/30MG TAB.ER.12H. PO SCH ×2 (08:23→20:43)
[2016-09-13] MEDS: OSELTAMIVIR 75 MG CAPSULE PO SCH ×2 (08:23→20:43)
[2016-09-13] MEDS: FERROUS SULFATE 325 MG TABLET PO SCH ×2 (08:23→16:53)
[2016-09-13] MEDS: IRON SUCROSE COMPLEX 200 MG in IV NORMAL SALINE 100ML 100 ML IV SCH (08:24)
[2016-09-13 10:20] VITALS: BP 131/83
--- NOTE | 2016-09-13 13:07 | PDOC ---
PULMONARY PROGRESS NOTES Subjective has sob better, has cough, slightly better, has n, no pain, no runny nose. Vitals Vital Signs Date Time Temp Pulse Resp B/P Pulse Ox O2 Delivery O2 Flow Rate FiO2 09/13/16 11:42 Room Air 09/13/16 10:20 98.8 74 18 131/83 94 98.8 Comments ros as mentioned as above other sys otherwise neg ROS: No Nausea, No Chest Pain, No Abdominal Pain General: Alert HEENT: Other (nc at perrl) Lungs: Other (few rhonchi) Cardiovascular: S1, S2 Abdomen: Soft, Non-tender Neuro Exam: Alert, Oriented Extremities: No Edema Skin: Warm Labs Laboratory Tests Test 09/12/16 10:25 09/12/16 11:45 09/13/16 04:15 Vancomycin Level Trough 13.0mcg/mL (10.0-20.0) Vancomycin Last Dose Date 09/11/16 Vancomycin Last Dose Time 2300 White Blood Count 5.2x10^3/uL (4.0-11.0) 5.0x10^3/uL (4.0-11.0) Red Blood Count 4.96x10^6/uL (3.50-5.40) 4.62x10^6/uL (3.50-5.40) Hemoglobin 10.2g/dL (12.0-15.5) 9.5g/dL (12.0-15.5) Hematocrit 33.6% (36.0-47.0) 31.5% (36.0-47.0) Mean Corpuscular Volume 68fL (79-100) 68fL (79-100) Mean Corpuscular Hemoglobin 21pg (25-35) 21pg (25-35) Mean Corpuscular Hemoglobin Concent 30g/dL (31-37) 30g/dL (31-37) Red Cell Distribution Width 18.2% (11.5-14.5) 18.1% (11.5-14.5) Platelet Count 198x10^3/uL (140-400) 207x10^3/uL (140-400) Neutrophils (%) (Auto) 75% (31-73) 57% (31-73) Lymphocytes (%) (Auto) 18% (24-48) 34% (24-48) Monocytes (%) (Auto) 6% (0-9) 8% (0-9) Eosinophils (%) (Auto) 1% (0-3) 2% (0-3) Basophils (%) (Auto) 0% (0-3) 0% (0-3) Neutrophils # (Auto) 3.9x10^3uL (1.8-7.7) 2.8x10^3uL (1.8-7.7) Lymphocytes # (Auto) 0.9x10^3/uL (1.0-4.8) 1.7x10^3/uL (1.0-4.8) Monocytes # (Auto) 0.3x10^3/uL (0.0-1.1) 0.4x10^3/uL (0.0-1.1) Eosinophils # (Auto) 0.1x10^3/uL (0.0-0.7) 0.1x10^3/uL (0.0-0.7) Basophils # (Auto) 0.0x10^3/uL (0.0-0.2) 0.0x10^3/uL (0.0-0.2) Sodium Level 143mmol/L (136-145) 144mmol/L (136-145) Potassium Level 3.5mmol/L (3.5-5.1) 3.5mmol/L (3.5-5.1) Chloride Level 106mmol/L (98-107) 108mmol/L (98-107) Carbon Dioxide Level 27mmol/L (21-32) 27mmol/L (21-32) Anion Gap 10 (6-14) 9 (6-14) Blood Urea Nitrogen 6mg/dL (7-20) 5mg/dL (7-20) Creatinine 0.9mg/dL (0.6-1.0) 0.8mg/dL (0.6-1.0) Estimated GFR (Cockcroft-Gault) 84.8 97.1 Glucose Level 103mg/dL (70-99) 137mg/dL (70-99) Calcium Level 8.7mg/dL (8.5-10.1) 8.8mg/dL (8.5-10.1) Laboratory Tests Test 09/13/16 04:15 White Blood Count 5.0x10^3/uL (4.0-11.0) Red Blood Count 4.62x10^6/uL (3.50-5.40) Hemoglobin 9.5g/dL (12.0-15.5) Hematocrit 31.5% (36.0-47.0) Mean Corpuscular Volume 68fL (79-100) Mean Corpuscular Hemoglobin 21pg (25-35) Mean Corpuscular Hemoglobin Concent 30g/dL (31-37) Red Cell Distribution Width 18.1% (11.5-14.5) Platelet Count 207x10^3/uL (140-400) Neutrophils (%) (Auto) 57% (31-73) Lymphocytes (%) (Auto) 34% (24-48) Monocytes (%) (Auto) 8% (0-9) Eosinophils (%) (Auto) 2% (0-3) Basophils (%) (Auto) 0% (0-3) Neutrophils # (Auto) 2.8x10^3uL (1.8-7.7) Lymphocytes # (Auto) 1.7x10^3/uL (1.0-4.8) Monocytes # (Auto) 0.4x10^3/uL (0.0-1.1) Eosinophils # (Auto) 0.1x10^3/uL (0.0-0.7) Basophils # (Auto) 0.0x10^3/uL (0.0-0.2) Sodium Level 144mmol/L (136-145) Potassium Level 3.5mmol/L (3.5-5.1) Chloride Level 108mmol/L (98-107) Carbon Dioxide Level 27mmol/L (21-32) Anion Gap 9 (6-14) Blood Urea Nitrogen 5mg/dL (7-20) Creatinine 0.8mg/dL (0.6-1.0) Estimated GFR (Cockcroft-Gault) 97.1 Glucose Level 137mg/dL (70-99) Calcium Level 8.8mg/dL (8.5-10.1) Medications Active Scripts Medications Dose Route/Sig Days Date Category Dose Instructions Proair Hfa Inhaler (Albuterol Sulfate) 8.5 Gm Hfa.aer.ad 1 Puff INH PRN Q6HRS PRN 09/06/16 Rx Prednisone 20 Mg Tablet 40 Mg PO DAILY 09/06/16 Rx Zithromax (Azithromycin) 250 Mg Tablet 250 Mg PO DAILY 09/06/16 Rx Take 2 tablets today then 1 tablet daily until gone Comments ct of chest reviewed. Impression . 1. Influenza B pneumonitis. 2. Abnormal CT chest with mild ground glass infiltrates in the lower lobes consistent with viral pneumonitis and dependent atelectasis. 3. Influenza B positive. 4. Cough secondary to above. Plan . 1. Continue respiratory isolation for influenza. 2. Tamiflu. 3. off Antibiotics 4. Continue with present bronchodilators with DuoNebs. 5. singulair 6. Pulmicort 7. increase activity home in am SUGEY GALO MD Sep 13, 2016 13:07
[2016-09-13 14:25] VITALS: BP 108/70
[2016-09-13] MEDS: DO NOT USE 40 MG/0.4 ML DISP.SYRIN SQ SCH (15:31)
--- NOTE | 2016-09-13 16:45 | PDOC ---
PROGRESS NOTES Chief Complaint Chief Complaint 1. URI 2. Ground glass findings on CT 3. Influenza 4. neutropenia resolved 5. hypokalemia resolved. 6. microcytic anemia, Plan Off abx Tamiflu Singulair Pulmicort DuoNeb labs reviewed. supportive care. History of Present Illness History of Present Illness no fever no chills cough Vitals Vitals Vital Signs Date Time Temp Pulse Resp B/P Pulse Ox O2 Delivery O2 Flow Rate FiO2 09/13/16 15:54 Room Air 09/13/16 14:25 99.3 85 18 108/70 96 99.3 Physical Exam General: Alert, Cooperative, mild distress, Other (coughing) Heart: Regular rate, Normal S1, Normal S2 Lungs: Other (few rhonchi) Abdomen: Normal bowel sounds, Soft, No tenderness, No hepatosplenomegaly, No masses Extremities: No clubbing, No cyanosis, No edema, Normal pulses, No tenderness/ swelling Skin: No rashes, No breakdown, No significant lesion Labs LABS Laboratory Tests Test 09/13/16 04:15 White Blood Count 5.0x10^3/uL (4.0-11.0) Red Blood Count 4.62x10^6/uL (3.50-5.40) Hemoglobin 9.5g/dL (12.0-15.5) Hematocrit 31.5% (36.0-47.0) Mean Corpuscular Volume 68fL (79-100) Mean Corpuscular Hemoglobin 21pg (25-35) Mean Corpuscular Hemoglobin Concent 30g/dL (31-37) Red Cell Distribution Width 18.1% (11.5-14.5) Platelet Count 207x10^3/uL (140-400) Neutrophils (%) (Auto) 57% (31-73) Lymphocytes (%) (Auto) 34% (24-48) Monocytes (%) (Auto) 8% (0-9) Eosinophils (%) (Auto) 2% (0-3) Basophils (%) (Auto) 0% (0-3) Neutrophils # (Auto) 2.8x10^3uL (1.8-7.7) Lymphocytes # (Auto) 1.7x10^3/uL (1.0-4.8) Monocytes # (Auto) 0.4x10^3/uL (0.0-1.1) Eosinophils # (Auto) 0.1x10^3/uL (0.0-0.7) Basophils # (Auto) 0.0x10^3/uL (0.0-0.2) Sodium Level 144mmol/L (136-145) Potassium Level 3.5mmol/L (3.5-5.1) Chloride Level 108mmol/L (98-107) Carbon Dioxide Level 27mmol/L (21-32) Anion Gap 9 (6-14) Blood Urea Nitrogen 5mg/dL (7-20) Creatinine 0.8mg/dL (0.6-1.0) Estimated GFR (Cockcroft-Gault) 97.1 Glucose Level 137mg/dL (70-99) Calcium Level 8.8mg/dL (8.5-10.1) Assessment and Plan Assessmemt and Plan Problems Medical Problems: (1) Bronchitis Status: Acute (2) Dyspnea Status: Acute (3) Hypovolemia Status: Acute (4) Tachycardia Status: Acute Problems: Comment Review of Relevant I have reviewed the following items domingo (where applicable) has been applied. Labs Laboratory Tests Test 09/12/16 10:25 09/12/16 11:45 09/13/16 04:15 Vancomycin Level Trough 13.0mcg/mL (10.0-20.0) Vancomycin Last Dose Date 09/11/16 Vancomycin Last Dose Time 2300 White Blood Count 5.2x10^3/uL (4.0-11.0) 5.0x10^3/uL (4.0-11.0) Red Blood Count 4.96x10^6/uL (3.50-5.40) 4.62x10^6/uL (3.50-5.40) Hemoglobin 10.2g/dL (12.0-15.5) 9.5g/dL (12.0-15.5) Hematocrit 33.6% (36.0-47.0) 31.5% (36.0-47.0) Mean Corpuscular Volume 68fL (79-100) 68fL (79-100) Mean Corpuscular Hemoglobin 21pg (25-35) 21pg (25-35) Mean Corpuscular Hemoglobin Concent 30g/dL (31-37) 30g/dL (31-37) Red Cell Distribution Width 18.2% (11.5-14.5) 18.1% (11.5-14.5) Platelet Count 198x10^3/uL (140-400) 207x10^3/uL (140-400) Neutrophils (%) (Auto) 75% (31-73) 57% (31-73) Lymphocytes (%) (Auto) 18% (24-48) 34% (24-48) Monocytes (%) (Auto) 6% (0-9) 8% (0-9) Eosinophils (%) (Auto) 1% (0-3) 2% (0-3) Basophils (%) (Auto) 0% (0-3) 0% (0-3) Neutrophils # (Auto) 3.9x10^3uL (1.8-7.7) 2.8x10^3uL (1.8-7.7) Lymphocytes # (Auto) 0.9x10^3/uL (1.0-4.8) 1.7x10^3/uL (1.0-4.8) Monocytes # (Auto) 0.3x10^3/uL (0.0-1.1) 0.4x10^3/uL (0.0-1.1) Eosinophils # (Auto) 0.1x10^3/uL (0.0-0.7) 0.1x10^3/uL (0.0-0.7) Basophils # (Auto) 0.0x10^3/uL (0.0-0.2) 0.0x10^3/uL (0.0-0.2) Sodium Level 143mmol/L (136-145) 144mmol/L (136-145) Potassium Level 3.5mmol/L (3.5-5.1) 3.5mmol/L (3.5-5.1) Chloride Level 106mmol/L (98-107) 108mmol/L (98-107) Carbon Dioxide Level 27mmol/L (21-32) 27mmol/L (21-32) Anion Gap 10 (6-14) 9 (6-14) Blood Urea Nitrogen 6mg/dL (7-20) 5mg/dL (7-20) Creatinine 0.9mg/dL (0.6-1.0) 0.8mg/dL (0.6-1.0) Estimated GFR (Cockcroft-Gault) 84.8 97.1 Glucose Level 103mg/dL (70-99) 137mg/dL (70-99) Calcium Level 8.7mg/dL (8.5-10.1) 8.8mg/dL (8.5-10.1) Laboratory Tests Test 09/13/16 04:15 White Blood Count 5.0x10^3/uL (4.0-11.0) Red Blood Count 4.62x10^6/uL (3.50-5.40) Hemoglobin 9.5g/dL (12.0-15.5) Hematocrit 31.5% (36.0-47.0) Mean Corpuscular Volume 68fL (79-100) Mean Corpuscular Hemoglobin 21pg (25-35) Mean Corpuscular Hemoglobin Concent 30g/dL (31-37) Red Cell Distribution Width 18.1% (11.5-14.5) Platelet Count 207x10^3/uL (140-400) Neutrophils (%) (Auto) 57% (31-73) Lymphocytes (%) (Auto) 34% (24-48) Monocytes (%) (Auto) 8% (0-9) Eosinophils (%) (Auto) 2% (0-3) Basophils (%) (Auto) 0% (0-3) Neutrophils # (Auto) 2.8x10^3uL (1.8-7.7) Lymphocytes # (Auto) 1.7x10^3/uL (1.0-4.8) Monocytes # (Auto) 0.4x10^3/uL (0.0-1.1) Eosinophils # (Auto) 0.1x10^3/uL (0.0-0.7) Basophils # (Auto) 0.0x10^3/uL (0.0-0.2) Sodium Level 144mmol/L (136-145) Potassium Level 3.5mmol/L (3.5-5.1) Chloride Level 108mmol/L (98-107) Carbon Dioxide Level 27mmol/L (21-32) Anion Gap 9 (6-14) Blood Urea Nitrogen 5mg/dL (7-20) Creatinine 0.8mg/dL (0.6-1.0) Estimated GFR (Cockcroft-Gault) 97.1 Glucose Level 137mg/dL (70-99) Calcium Level 8.8mg/dL (8.5-10.1) Microbiology 09/09/16 Blood Culture - Preliminary, Resulted NO GROWTH AFTER 4 DAYS 09/10/16 Sputum Culture - Final, Complete 09/10/16 Sputum Result 1 - Final, Complete Medications Current Medications Sodium Chloride 10 ml 10 ml 1X ONCE IV ; Start 09/09/16 at 09:15; Stop at 09:16; Status DC Sodium Chloride (Iv Sodium Chloride 0.9% 1000ml Bag) 1,000 ml @ 1,000 mls/hr Q1H IV Last administered on 09/09/16 09:30; Start 09/09/16 at 09:03; Stop at 10:02; Status DC Morphine Sulfate 5 mg 1X ONCE IV Last administered on 09/09/16 09:30; Start 09/09/16 at 09:15; Stop 09/09/16 at 09:16; Status DC Albuterol/ Ipratropium (Duoneb) 3 ml 1X ONCE NEB Last administered on 09:37; Start 09/09/16 at 09:15; Stop 09/09/16 at 09:16; Status DC Vancomycin HCl (Vanco Per Pharmacy) 1 each PRN DAILY PRN MC SEE COMMENTS Last administered on 09/10/16 23:39; Start 09/09/16 at 09:30; Stop 09/12/16 at 11:44 ; Status DC Piperacillin Sod/ Tazobactam Sod 1 each 1 each PRN DAILY PRN MC SEE COMMENTS; Start 09/09/16 at 09:30; Stop 09/12/16 at 11:44; Status DC Vancomycin HCl 2 gm/Sodium Chloride 500 ml @ 250 mls/hr 1X ONCE IV Last administered on 09/09/16 10:55; Start 09/09/16 at 10:00; Stop 09/09/16 at 11:59 ; Status DC Piperacillin Sod/ Tazobactam Sod/ Sodium Chloride (Zosyn/Iv Sodium Chloride 0.9 % 100ml) 100 ml @ 200 mls/hr 1X ONCE IV Last administered on 09/09/16 10:05 ; Start 09/09/16 at 09:45; Stop 09/09/16 at 10:14; Status DC Iohexol (Omnipaque 300 Mg/ml) 75 ml 1X ONCE IV Last administered on 09/09/16 10:14; Start 09/09/16 at 10:15; Stop 09/09/16 at 10:16; Status DC Info (Do NOT chart on this entry -- for MONITORING) 1 each PRN DAILY PRN MC SEE COMMENTS; Start 09/09/16 at 10:30; Stop 09/11/16 at 10:29; Status Cancel Info (Do NOT chart on this entry -- for MONITORING) 1 each PRN DAILY PRN MC SEE COMMENTS; Start 09/09/16 at 10:30; Stop 09/11/16 at 10:29; Status DC Albuterol/ Ipratropium (Duoneb) 3 ml 1X ONCE NEB Last administered on 12:06; Start 09/09/16 at 12:00; Stop 09/09/16 at 12:01; Status DC Albuterol/ Ipratropium (Duoneb) 3 ml RTQID NEB Last administered on 09/13/16 15:53; Start 09/09/16 at 13:00 Guaifenesin (MUCINEX ER with DM) 1 tab BID PO Last administered on 09/13/16 08 :23; Start 09/09/16 at 13:00 Promethazine HCl/ Codeine (Phenergan With Codeine) 5 ml QID PO Last administered on 09/13/16 12:58; Start 09/09/16 at 13:00 Acetaminophen (Tylenol) 500 mg PRN Q4HRS PRN PO fever Last administered on 09/12 10:36; Start 09/09/16 at 12:00 Ondansetron HCl (Zofran) 4 mg PRN Q6HRS PRN IV emesis Last administered on 09/12 10:37; Start 09/09/16 at 12:00; Stop 09/13/16 at 13:09; Status DC Zolpidem Tartrate 5 mg 5 mg PRN QHS PRN PO INSOMNIA; Start 09/09/16 at 12:00 Sodium Chloride (Iv Sodium Chloride 0.9% 1000ml Bag) 1,000 ml @ 100 mls/hr Q10H IV Last administered on 09/10/16 00:57; Start 09/09/16 at 12:00; Stop at 12:20; Status DC Albuterol Sulfate 2.5 mg 2.5 mg PRN Q2HR PRN NEB soa; Start 09/09/16 at 12:00 Potassium Chloride 100 ml @ 100 mls/hr Q1H IV Last administered on 09/09/16 14:20; Start 09/09/16 at 12:30; Stop 09/09/16 at 14:29; Status DC Piperacillin Sod/ Tazobactam Sod/ Sodium Chloride (Zosyn/Iv Sodium Chloride 0.9 % 100ml) 100 ml @ 200 mls/hr Q6HRS IV Last administered on 09/12/16 05:45; Start 09/09/16 at 17:00; Stop 09/12/16 at 11:44; Status DC Oseltamivir Phosphate 75 mg 75 mg BID PO Last administered on 09/13/16 08:23; Start 09/09/16 at 15:00; Stop 09/14/16 at 14:59 Vancomycin HCl/ Sodium Chloride (Iv Sodium Chloride 0.9% 500ml Bag) 500 ml @ 250 mls/hr Q12H IV Last administered on 09/10/16 13:23; Start 09/09/16 at 23: 00; Stop 09/10/16 at 23:05; Status DC Vancomycin HCl 1 each 1 each 1X ONCE MC Last administered on 09/10/16 22:30; Start 09/10/16 at 22:30; Stop 09/10/16 at 22:31; Status DC Magnesium Sulfate/ Dextrose (Magnesium Sulfate PREMIX 2GM) 50 ml @ 25 mls/hr 1X ONCE IV Last administered on 09/10/16 10:44; Start 09/10/16 at 10:30; Stop 09/10/16 at 12:29; Status DC Potassium Chloride (Klor-Con) 40 meq 1X ONCE PO Last administered on 10:44; Start 09/10/16 at 10:30; Stop 09/10/16 at 10:31; Status DC Chlorphenir/ Hydrocodone Polistirex 5 ml 5 ml PRN Q8HRS PRN PO COUGH Last administered on 09/12/16 09:47; Start 09/10/16 at 10:45 Vancomycin HCl/ Sodium Chloride (Iv Sodium Chloride 0.9% 250ml) 250 ml @ 167 mls/hr Q12H IV Last administered on 09/11/16 22:38; Start 09/11/16 at 11:00; Stop 09/12/16 at 11:44; Status DC Vancomycin HCl 1 each 1X ONCE MC ; Start 09/12/16 at 10:30; Stop 09/12/16 at 10 :31; Status DC Budesonide (Pulmicort) 0.5 mg RTBID NEB Last administered on 09/13/16 07:41; Start 09/11/16 at 09:00 Montelukast Sodium 10 mg 10 mg QHS PO Last administered on 09/12/16 21:10; Start 09/11/16 at 21:00 Sodium Chloride (Iv Sodium Chloride 0.45%) 1,000 ml @ 75 mls/hr [id number] IV Last administered on 09/13/16 04:49; Start 09/11/16 at 12:30 Ferrous Sulfate (Feosol) 325 mg BIDWMEALS PO Last administered on 09/13/16 08: 23; Start 09/11/16 at 17:00 Enoxaparin Sodium (Lovenox 40mg Syringe) 40 mg DAILY16 SQ ; Start 09/11/16 at 16 :00 Ondansetron HCl 4 mg 4 mg PRN Q6HRS PRN IV NAUSEA/VOMITING; Start 09/12/16 at 10:30 Iron Sucrose/ Sodium Chloride (Venofer/Iv Sodium Chloride 0.9% 100ml) 110 ml @ 55 mls/hr DAILY IV Last administered on 09/13/16 08:24; Start 09/12/16 at 12: 00; Stop 09/16/16 at 10:00 Active Scripts Active Proair Hfa Inhaler (Albuterol Sulfate) 8.5 Gm Hfa.aer.ad 1 Puff INH PRN Q6HRS PRN Prednisone 20 Mg Tablet 40 Mg PO DAILY Zithromax (Azithromycin) 250 Mg Tablet 250 Mg PO DAILY Take 2 tablets today then 1 tablet daily until gone Vitals/I & O Vital Sign - Last 24 Hours 09/12/16 09/12/16 09/12/16 09/12/16 19:20 19:20 19:39 19:39 Temp 97.9 97.9 Pulse 77 Resp 16 B/P 134/77 Pulse Ox 97 O2 Delivery Room Air Room Air Room Air Room Air 09/12/16 09/13/16 09/13/16 09/13/16 23:03 02:41 07:10 07:44 Temp 99.5 98.1 98.1 99.5 98.1 98.1 Pulse 79 71 74 Resp 18 16 18 B/P 132/81 102/64 101/59 Pulse Ox 100 94 96 96 O2 Delivery Room Air Room Air Room Air Room Air 09/13/16 09/13/16 09/13/16 09/13/16 07:45 07:48 10:20 11:42 Temp 98.8 98.8 Pulse 74 Resp 18 B/P 131/83 Pulse Ox 96 94 O2 Delivery Room Air Room Air Room Air Room Air 09/13/16 09/13/16 14:25 15:54 Temp 99.3 99.3 Pulse 85 Resp 18 B/P 108/70 Pulse Ox 96 O2 Delivery Room Air Room Air Intake and Output 09/12/16 09/12/16 09/13/16 15:00 23:00 07:00 Intake Total 1040 ml 410 ml Balance 1040 ml 410 ml LELAND GOLDSTEIN MD Sep 13, 2016 16:45
[2016-09-13 19:00] VITALS: BP 134/85
[2016-09-13] MEDS: MONTELUKAST SODIUM 10 MG TABLET. PO SCH (20:43)
[2016-09-13 23:00] VITALS: BP_SYST 115; BP_SYST 147; BP_DIAS 59; BP_DIAS 74
[2016-09-14 03:00] VITALS: BP 128/81
[2016-09-14 07:00] VITALS: BP 115/76
[2016-09-14] MEDS: IPRATRPIUM/ALBUTEROL 0.5/2.5MG 3 ML NEBU. NEB SCH ×2 (07:24→11:29)
[2016-09-14] MEDS: BUDESONIDE 0.5 MG/2 ML NEBU. NEB SCH (07:24)
--- NOTE | 2016-09-14 07:58 | PDOC ---
PROGRESS NOTES Chief Complaint Chief Complaint 1. URI 2. Ground glass findings on CT 3. Influenza 4. neutropenia resolved 5. hypokalemia resolved. 6. microcytic anemia, Plan Off abx Tamiflu Singulair Pulmicort DuoNeb labs reviewed. supportive care. Anticipated DC TODAY. History of Present Illness History of Present Illness no fever no chills cough Vitals Vitals Vital Signs Date Time Temp Pulse Resp B/P Pulse Ox O2 Delivery O2 Flow Rate FiO2 09/14/16 07:27 98 Room Air 09/14/16 07:00 97.7 61 18 115/76 97.7 Physical Exam General: Alert, Cooperative, mild distress, Other (coughing) Heart: Regular rate, Normal S1, Normal S2 Lungs: Other (few rhonchi) Abdomen: Normal bowel sounds, Soft, No tenderness, No hepatosplenomegaly, No masses Extremities: No clubbing, No cyanosis, No edema, Normal pulses, No tenderness/ swelling Skin: No rashes, No breakdown, No significant lesion Assessment and Plan Assessmemt and Plan Problems Medical Problems: (1) Bronchitis Status: Acute (2) Dyspnea Status: Acute (3) Hypovolemia Status: Acute (4) Tachycardia Status: Acute Problems: Comment Review of Relevant I have reviewed the following items domingo (where applicable) has been applied. Labs Laboratory Tests Test 09/12/16 10:25 09/12/16 11:45 09/13/16 04:15 Vancomycin Level Trough 13.0mcg/mL (10.0-20.0) Vancomycin Last Dose Date 09/11/16 Vancomycin Last Dose Time 2300 White Blood Count 5.2x10^3/uL (4.0-11.0) 5.0x10^3/uL (4.0-11.0) Red Blood Count 4.96x10^6/uL (3.50-5.40) 4.62x10^6/uL (3.50-5.40) Hemoglobin 10.2g/dL (12.0-15.5) 9.5g/dL (12.0-15.5) Hematocrit 33.6% (36.0-47.0) 31.5% (36.0-47.0) Mean Corpuscular Volume 68fL (79-100) 68fL (79-100) Mean Corpuscular Hemoglobin 21pg (25-35) 21pg (25-35) Mean Corpuscular Hemoglobin Concent 30g/dL (31-37) 30g/dL (31-37) Red Cell Distribution Width 18.2% (11.5-14.5) 18.1% (11.5-14.5) Platelet Count 198x10^3/uL (140-400) 207x10^3/uL (140-400) Neutrophils (%) (Auto) 75% (31-73) 57% (31-73) Lymphocytes (%) (Auto) 18% (24-48) 34% (24-48) Monocytes (%) (Auto) 6% (0-9) 8% (0-9) Eosinophils (%) (Auto) 1% (0-3) 2% (0-3) Basophils (%) (Auto) 0% (0-3) 0% (0-3) Neutrophils # (Auto) 3.9x10^3uL (1.8-7.7) 2.8x10^3uL (1.8-7.7) Lymphocytes # (Auto) 0.9x10^3/uL (1.0-4.8) 1.7x10^3/uL (1.0-4.8) Monocytes # (Auto) 0.3x10^3/uL (0.0-1.1) 0.4x10^3/uL (0.0-1.1) Eosinophils # (Auto) 0.1x10^3/uL (0.0-0.7) 0.1x10^3/uL (0.0-0.7) Basophils # (Auto) 0.0x10^3/uL (0.0-0.2) 0.0x10^3/uL (0.0-0.2) Sodium Level 143mmol/L (136-145) 144mmol/L (136-145) Potassium Level 3.5mmol/L (3.5-5.1) 3.5mmol/L (3.5-5.1) Chloride Level 106mmol/L (98-107) 108mmol/L (98-107) Carbon Dioxide Level 27mmol/L (21-32) 27mmol/L (21-32) Anion Gap 10 (6-14) 9 (6-14) Blood Urea Nitrogen 6mg/dL (7-20) 5mg/dL (7-20) Creatinine 0.9mg/dL (0.6-1.0) 0.8mg/dL (0.6-1.0) Estimated GFR (Cockcroft-Gault) 84.8 97.1 Glucose Level 103mg/dL (70-99) 137mg/dL (70-99) Calcium Level 8.7mg/dL (8.5-10.1) 8.8mg/dL (8.5-10.1) Microbiology 09/09/16 Blood Culture - Preliminary, Resulted NO GROWTH AFTER 4 DAYS 09/10/16 Sputum Culture - Final, Complete 09/10/16 Sputum Result 1 - Final, Complete Medications Current Medications Sodium Chloride 10 ml 10 ml 1X ONCE IV ; Start 09/09/16 at 09:15; Stop at 09:16; Status DC Sodium Chloride (Iv Sodium Chloride 0.9% 1000ml Bag) 1,000 ml @ 1,000 mls/hr Q1H IV Last administered on 09/09/16 09:30; Start 09/09/16 at 09:03; Stop at 10:02; Status DC Morphine Sulfate 5 mg 1X ONCE IV Last administered on 09/09/16 09:30; Start 09/09/16 at 09:15; Stop 09/09/16 at 09:16; Status DC Albuterol/ Ipratropium (Duoneb) 3 ml 1X ONCE NEB Last administered on 09:37; Start 09/09/16 at 09:15; Stop 09/09/16 at 09:16; Status DC Vancomycin HCl (Vanco Per Pharmacy) 1 each PRN DAILY PRN MC SEE COMMENTS Last administered on 09/10/16 23:39; Start 09/09/16 at 09:30; Stop 09/12/16 at 11:44 ; Status DC Piperacillin Sod/ Tazobactam Sod 1 each 1 each PRN DAILY PRN MC SEE COMMENTS; Start 09/09/16 at 09:30; Stop 09/12/16 at 11:44; Status DC Vancomycin HCl 2 gm/Sodium Chloride 500 ml @ 250 mls/hr 1X ONCE IV Last administered on 09/09/16 10:55; Start 09/09/16 at 10:00; Stop 09/09/16 at 11:59 ; Status DC Piperacillin Sod/ Tazobactam Sod/ Sodium Chloride (Zosyn/Iv Sodium Chloride 0.9 % 100ml) 100 ml @ 200 mls/hr 1X ONCE IV Last administered on 09/09/16 10:05 ; Start 09/09/16 at 09:45; Stop 09/09/16 at 10:14; Status DC Iohexol (Omnipaque 300 Mg/ml) 75 ml 1X ONCE IV Last administered on 09/09/16 10:14; Start 09/09/16 at 10:15; Stop 09/09/16 at 10:16; Status DC Info (Do NOT chart on this entry -- for MONITORING) 1 each PRN DAILY PRN MC SEE COMMENTS; Start 09/09/16 at 10:30; Stop 09/11/16 at 10:29; Status Cancel Info (Do NOT chart on this entry -- for MONITORING) 1 each PRN DAILY PRN MC SEE COMMENTS; Start 09/09/16 at 10:30; Stop 09/11/16 at 10:29; Status DC Albuterol/ Ipratropium (Duoneb) 3 ml 1X ONCE NEB Last administered on 12:06; Start 09/09/16 at 12:00; Stop 09/09/16 at 12:01; Status DC Albuterol/ Ipratropium (Duoneb) 3 ml RTQID NEB Last administered on 09/14/16 07:24; Start 09/09/16 at 13:00 Guaifenesin (MUCINEX ER with DM) 1 tab BID PO Last administered on 09/13/16 20 :43; Start 09/09/16 at 13:00 Promethazine HCl/ Codeine (Phenergan With Codeine) 5 ml QID PO Last administered on 09/13/16 20:43; Start 09/09/16 at 13:00 Acetaminophen (Tylenol) 500 mg PRN Q4HRS PRN PO fever Last administered on 09/12 10:36; Start 09/09/16 at 12:00 Ondansetron HCl (Zofran) 4 mg PRN Q6HRS PRN IV emesis Last administered on 09/12 10:37; Start 09/09/16 at 12:00; Stop 09/13/16 at 13:09; Status DC Zolpidem Tartrate 5 mg 5 mg PRN QHS PRN PO INSOMNIA; Start 09/09/16 at 12:00 Sodium Chloride (Iv Sodium Chloride 0.9% 1000ml Bag) 1,000 ml @ 100 mls/hr Q10H IV Last administered on 09/10/16 00:57; Start 09/09/16 at 12:00; Stop at 12:20; Status DC Albuterol Sulfate 2.5 mg 2.5 mg PRN Q2HR PRN NEB soa; Start 09/09/16 at 12:00 Potassium Chloride 100 ml @ 100 mls/hr Q1H IV Last administered on 09/09/16 14:20; Start 09/09/16 at 12:30; Stop 09/09/16 at 14:29; Status DC Piperacillin Sod/ Tazobactam Sod/ Sodium Chloride (Zosyn/Iv Sodium Chloride 0.9 % 100ml) 100 ml @ 200 mls/hr Q6HRS IV Last administered on 09/12/16 05:45; Start 09/09/16 at 17:00; Stop 09/12/16 at 11:44; Status DC Oseltamivir Phosphate 75 mg 75 mg BID PO Last administered on 09/13/16 20:43; Start 09/09/16 at 15:00; Stop 09/14/16 at 14:59 Vancomycin HCl/ Sodium Chloride (Iv Sodium Chloride 0.9% 500ml Bag) 500 ml @ 250 mls/hr Q12H IV Last administered on 09/10/16 13:23; Start 09/09/16 at 23: 00; Stop 09/10/16 at 23:05; Status DC Vancomycin HCl 1 each 1 each 1X ONCE MC Last administered on 09/10/16 22:30; Start 09/10/16 at 22:30; Stop 09/10/16 at 22:31; Status DC Magnesium Sulfate/ Dextrose (Magnesium Sulfate PREMIX 2GM) 50 ml @ 25 mls/hr 1X ONCE IV Last administered on 09/10/16 10:44; Start 09/10/16 at 10:30; Stop 09/10/16 at 12:29; Status DC Potassium Chloride (Klor-Con) 40 meq 1X ONCE PO Last administered on 10:44; Start 09/10/16 at 10:30; Stop 09/10/16 at 10:31; Status DC Chlorphenir/ Hydrocodone Polistirex 5 ml 5 ml PRN Q8HRS PRN PO COUGH Last administered on 09/12/16 09:47; Start 09/10/16 at 10:45 Vancomycin HCl/ Sodium Chloride (Iv Sodium Chloride 0.9% 250ml) 250 ml @ 167 mls/hr Q12H IV Last administered on 09/11/16 22:38; Start 09/11/16 at 11:00; Stop 09/12/16 at 11:44; Status DC Vancomycin HCl 1 each 1X ONCE MC ; Start 09/12/16 at 10:30; Stop 09/12/16 at 10 :31; Status DC Budesonide (Pulmicort) 0.5 mg RTBID NEB Last administered on 09/14/16 07:24; Start 09/11/16 at 09:00 Montelukast Sodium 10 mg 10 mg QHS PO Last administered on 09/13/16 20:43; Start 09/11/16 at 21:00 Sodium Chloride (Iv Sodium Chloride 0.45%) 1,000 ml @ 75 mls/hr [id number] IV Last administered on 09/13/16 20:43; Start 09/11/16 at 12:30 Ferrous Sulfate (Feosol) 325 mg BIDWMEALS PO Last administered on 09/13/16 16: 53; Start 09/11/16 at 17:00 Enoxaparin Sodium (Lovenox 40mg Syringe) 40 mg DAILY16 SQ ; Start 09/11/16 at 16 :00 Ondansetron HCl 4 mg 4 mg PRN Q6HRS PRN IV NAUSEA/VOMITING; Start 09/12/16 at 10:30 Iron Sucrose/ Sodium Chloride (Venofer/Iv Sodium Chloride 0.9% 100ml) 110 ml @ 55 mls/hr DAILY IV Last administered on 09/13/16 08:24; Start 09/12/16 at 12: 00; Stop 09/16/16 at 10:00 Active Scripts Active Proair Hfa Inhaler (Albuterol Sulfate) 8.5 Gm Hfa.aer.ad 1 Puff INH PRN Q6HRS PRN Prednisone 20 Mg Tablet 40 Mg PO DAILY Zithromax (Azithromycin) 250 Mg Tablet 250 Mg PO DAILY Take 2 tablets today then 1 tablet daily until gone Vitals/I & O Vital Sign - Last 24 Hours 09/13/16 09/13/16 09/13/16 09/13/16 10:20 11:42 14:25 15:54 Temp 98.8 99.3 98.8 99.3 Pulse 74 85 Resp 18 B/P 131/83 108/70 Pulse Ox 94 96 O2 Delivery Room Air Room Air Room Air Room Air 09/13/16 09/13/16 09/13/16 09/13/16 19:00 19:05 19:39 23:00 Temp 99.1 99.5 99.1 99.5 Pulse 82 85 Resp 18 18 B/P 134/85 115/74 Pulse Ox 99 96 O2 Delivery Room Air Room Air Room Air Room Air 09/14/16 09/14/16 09/14/16 03:00 07:00 07:27 Temp 99.2 97.7 99.2 97.7 Pulse 88 61 Resp 18 B/P 128/81 115/76 Pulse Ox 98 95 98 O2 Delivery Room Air Room Air Room Air Intake and Output 09/13/16 09/13/16 09/14/16 15:00 23:00 07:00 Intake Total 360 ml 1180 ml 300 ml Balance 360 ml 1180 ml 300 ml LELAND GOLDSTEIN MD Sep 14, 2016 07:58
[2016-09-14] MEDS: OSELTAMIVIR 75 MG CAPSULE PO SCH (08:24)
[2016-09-14] MEDS: PROMETH/CODEINE 6.25/10MG 5 ML SYRUP. PO SCH ×2 (08:25→13:38)
[2016-09-14] MEDS: GUAIFENESIN DM 600/30MG TAB.ER.12H. PO SCH (08:25)
[2016-09-14] MEDS: IRON SUCROSE COMPLEX 200 MG in IV NORMAL SALINE 100ML 100 ML IV SCH (08:25)
[2016-09-14] MEDS: FERROUS SULFATE 325 MG TABLET PO SCH (08:25)
[2016-09-14] MEDS: IV 1/2 NORMAL SALINE 1,000 ML IV SCH (08:28)
--- NOTE | 2016-09-14 08:58 | PDOC ---
PULMONARY PROGRESS NOTES Subjective has sob better, has cough, slightly better, has n, no pain, no runny nose. Vitals Vital Signs Date Time Temp Pulse Resp B/P Pulse Ox O2 Delivery O2 Flow Rate FiO2 09/14/16 07:30 98 Room Air 09/14/16 07:00 97.7 61 18 115/76 97.7 Comments ros as mentioned as above other sys otherwise neg ROS: No Nausea, No Chest Pain, No Abdominal Pain General: Alert HEENT: Other (nc at perrl) Lungs: Other (few rhonchi) Cardiovascular: S1, S2 Abdomen: Soft, Non-tender Neuro Exam: Alert, Oriented Extremities: No Edema Skin: Warm Labs Laboratory Tests Test 09/12/16 10:25 09/12/16 11:45 09/13/16 04:15 Vancomycin Level Trough 13.0mcg/mL (10.0-20.0) Vancomycin Last Dose Date 09/11/16 Vancomycin Last Dose Time 2300 White Blood Count 5.2x10^3/uL (4.0-11.0) 5.0x10^3/uL (4.0-11.0) Red Blood Count 4.96x10^6/uL (3.50-5.40) 4.62x10^6/uL (3.50-5.40) Hemoglobin 10.2g/dL (12.0-15.5) 9.5g/dL (12.0-15.5) Hematocrit 33.6% (36.0-47.0) 31.5% (36.0-47.0) Mean Corpuscular Volume 68fL (79-100) 68fL (79-100) Mean Corpuscular Hemoglobin 21pg (25-35) 21pg (25-35) Mean Corpuscular Hemoglobin Concent 30g/dL (31-37) 30g/dL (31-37) Red Cell Distribution Width 18.2% (11.5-14.5) 18.1% (11.5-14.5) Platelet Count 198x10^3/uL (140-400) 207x10^3/uL (140-400) Neutrophils (%) (Auto) 75% (31-73) 57% (31-73) Lymphocytes (%) (Auto) 18% (24-48) 34% (24-48) Monocytes (%) (Auto) 6% (0-9) 8% (0-9) Eosinophils (%) (Auto) 1% (0-3) 2% (0-3) Basophils (%) (Auto) 0% (0-3) 0% (0-3) Neutrophils # (Auto) 3.9x10^3uL (1.8-7.7) 2.8x10^3uL (1.8-7.7) Lymphocytes # (Auto) 0.9x10^3/uL (1.0-4.8) 1.7x10^3/uL (1.0-4.8) Monocytes # (Auto) 0.3x10^3/uL (0.0-1.1) 0.4x10^3/uL (0.0-1.1) Eosinophils # (Auto) 0.1x10^3/uL (0.0-0.7) 0.1x10^3/uL (0.0-0.7) Basophils # (Auto) 0.0x10^3/uL (0.0-0.2) 0.0x10^3/uL (0.0-0.2) Sodium Level 143mmol/L (136-145) 144mmol/L (136-145) Potassium Level 3.5mmol/L (3.5-5.1) 3.5mmol/L (3.5-5.1) Chloride Level 106mmol/L (98-107) 108mmol/L (98-107) Carbon Dioxide Level 27mmol/L (21-32) 27mmol/L (21-32) Anion Gap 10 (6-14) 9 (6-14) Blood Urea Nitrogen 6mg/dL (7-20) 5mg/dL (7-20) Creatinine 0.9mg/dL (0.6-1.0) 0.8mg/dL (0.6-1.0) Estimated GFR (Cockcroft-Gault) 84.8 97.1 Glucose Level 103mg/dL (70-99) 137mg/dL (70-99) Calcium Level 8.7mg/dL (8.5-10.1) 8.8mg/dL (8.5-10.1) Medications Active Scripts Medications Dose Route/Sig Days Date Category Dose Instructions Proair Hfa Inhaler (Albuterol Sulfate) 8.5 Gm Hfa.aer.ad 1 Puff INH PRN Q6HRS PRN 09/06/16 Rx Prednisone 20 Mg Tablet 40 Mg PO DAILY 09/06/16 Rx Zithromax (Azithromycin) 250 Mg Tablet 250 Mg PO DAILY 09/06/16 Rx Take 2 tablets today then 1 tablet daily until gone Comments ct of chest reviewed. Impression . OK TO D/C HOME NO NEED FOR ONGOING BRONCHODILATION USE ALBUTEROL NEEDED 1. Influenza B pneumonitis. 2. Abnormal CT chest with mild ground glass infiltrates in the lower lobes consistent with viral pneumonitis and dependent atelectasis. 3. Influenza B positive. 4. Cough secondary to above. Plan . 1. Continue respiratory isolation for influenza. 2. Tamiflu. 3. off Antibiotics 4. Continue with present bronchodilators with DuoNebs. 5. singulair 6. Pulmicort 7. increase activity home in am DEVENDRA ESCOBEDO MD Sep 14, 2016 08:58
[2016-09-14] MEDS ORDERED: OMEP20TA63 PO (10:27)
[2016-09-14] MEDS ORDERED: DEXT118L3 PO (10:30)
[2016-09-14 11:09] VITALS: BP 111/67
[2016-09-14 15:01] VITALS: BP 139/92
[2016-09-14] MEDS: ACETAMINOPHEN 500 MG TABLET PO PRN (15:31)
== END 2016-09-14 15:42 | disposition home or self-care (01) | DRG 194 ==
LOC: ER 08:49 → 5 NORTH 11:42
PROVIDERS: ADMIT Internal Medicine; ATTEND Internal Medicine
DX: J10.08 Influenza due to other identified influenza virus with other specified pneumonia (principal); J98.11 Atelectasis; J12.9 Viral pneumonia, unspecified; D50.9 Iron deficiency anemia, unspecified; E87.6 Hypokalemia; D70.9 Neutropenia, unspecified; I48.91 Unspecified atrial fibrillation; J40 Bronchitis, not specified as acute or chronic; K21.9 Gastro-esophageal reflux disease without esophagitis; N92.0 Excessive and frequent menstruation with regular cycle; Z79.899 Other long term (current) drug therapy
CPT/HCPCS: 36415; 71275; 80048; 80053; 80202; 83540; 83550; 83605; 85007; 85027; 87040; 87070; 87205; 87804; 93005; 94250; 94640; 94760; 96361; 96365; 96375; J1756; J2270; J2405; J2543; J3370; J3480; J7030; J7040; J7050; J7060; J7620; Q9967; 99285-25

== ENCOUNTER 2017-02-22 12:01 | Emergency (ER) | payer SELFPAY ==
[~2017-02-22] VITALS: Ht 170.2 cm; Wt 81.6 kg
[~2017-02-22 12:01] MED LIST changes: +DEXT118L3 PO; +OMEP20TA63 PO
[2017-02-22 13:37] VITALS: BP 158/115
[2017-02-22 14:05] LABS: BILIRUBIN,URINE NEGATIVE (NEG); GLUCOSE,URINE NEGATIVE (NEG); NITRITE,URINE NEGATIVE (NEG); PROTEIN,URINE NEGATIVE (NEG-TRACE); UROBILINOGEN,URINE 0.2 mg/dL (0.2 mg/dL)
[2017-02-22 14:13] LABS: BACTERIA,URINE MANY /HPF (0-FEW); RBC,URINE 0 /HPF (0-2); SQUAMOUS EPITHELIAL CELL,UR MANY /LPF
[2017-02-22] MEDS ORDERED: CIPR500T94 PO (14:46)
--- NOTE | 2017-02-22 14:46 | PHYS DOC ---
Past Medical History Past Medical History: GERD, Other Additional Past Medical Histor: gestational diabetes Past Surgical History: Cholecystectomy, , Tubal ligation Additional Past Surgical Histo: dilation and curretage Alcohol Use: Occasionally Drug Use: None Adult General Chief Complaint Chief Complaint: BACK PAIN OR INJURY [facility] HPI Patient is a 36 year old female presents to the emergency department stating that she has having left flank pain and discomfort. She denies any radiation of pain to the lower abdomen. She states that she did have some lower abdominal pain earlier in the week. She continues to deny any nausea vomiting fever or chills. She states she has taken Tylenol and ibuprofen for the pain and discomfort with no relief. Review of Systems Review of Systems Constitutional: Denies fever or chills [] Eyes: Denies change in visual acuity, redness, or eye pain [] HENT: Denies nasal congestion or sore throat [] Respiratory: Denies cough or shortness of breath [] Cardiovascular: No additional information not addressed in HPI [] GI: Denies abdominal pain, nausea, vomiting, bloody stools or diarrhea [] : Denies dysuria or hematuria [] Musculoskeletal: left flank pain no joint pain Integument: Denies rash or skin lesions [] Neurologic: Denies headache, focal weakness or sensory changes [] Endocrine: Denies polyuria or polydipsia [] Allergies Allergies Allergies Coded Allergies Type Severity Reaction Last Updated Verified No Known Drug Allergies 09/19/13 No Physical Exam Physical Exam Constitutional: Well developed, well nourished, no acute distress, non-toxic appearance. [] HENT: Normocephalic, atraumatic, bilateral external ears normal, oropharynx moist, no oral exudates, nose normal. [] Eyes: PERRLA, EOMI, conjunctiva normal, no discharge. [] Neck: Normal range of motion, no tenderness, supple, no stridor. [] Cardiovascular:Heart rate regular rhythm, no murmur [] Lungs & Thorax: Bilateral breath sounds clear to auscultation [] Left] Extremities: No tenderness, no cyanosis, no clubbing, ROM intact, no edema. [] Neurologic: Alert and oriented X 3, normal motor function, normal sensory function, no focal deficits noted. [] Psychologic: Affect normal, judgement normal, mood normal. [] Current Patient Data Vital Signs Vital Signs Date Time Temp Pulse Resp B/P (MAP) Pulse Ox O2 Delivery O2 Flow Rate FiO2 02/22/17 13:37 98.4 75 16 158/115 (129) 96 Room Air 98.4 Lab Values Laboratory Tests Test 02/22/17 13:11 02/22/17 13:55 POC Urine HCG, Qualitative Hcg negative (Negative) Urine Collection Type Unknown Urine Color Yellow Urine Clarity Cloudy Urine pH 6.0 Urine Specific Salters 1.020 Urine Protein Negative mg/dL (NEG-TRACE) Urine Glucose (UA) Negative mg/dL (NEG) Urine Ketones (Stick) Negative mg/dL (NEG) Urine Blood Negative (NEG) Urine Nitrite Negative (NEG) Urine Bilirubin Negative (NEG) Urine Urobilinogen Dipstick 0.2 mg/dL (0.2 mg/dL) Urine Leukocyte Esterase Moderate (NEG) Urine RBC 0 /HPF (0-2) Urine WBC 5-10 /HPF (0-4) Urine Squamous Epithelial Cells Many /LPF Urine Bacteria Many /HPF (0-FEW) Urine Mucus Marked /LPF EKG EKG [] Radiology/Procedures Radiology/Procedures [] Course & Med Decision Making Course & Med Decision Making Pertinent Labs and Imaging studies reviewed. (See chart for details) Patient's urine was positive for moderate amount of leukocyte Estrace as well as many bacteria. Patient will be discharged home on Cipro with recommendations to drink plenty of fluids such as water and cranberry juice. Recommended avoiding coverages cocktail, carbonated beverages, citrus fruits, alcohol, and caffeine as these are considered irritants to the bladder. Patient agrees with discharge instructions, treatment regimens and follow-up recommendations. Signs and symptoms to return back to emergency department has been provided. All questions and concerns been answered at the patient's bedside. [] Dragon Disclaimer Dragon Disclaimer This electronic medical record was generated, in whole or in part, using a voice recognition dictation system. Departure Departure Impression: Primary Impression: UTI (urinary tract infection) Additional Impression: Lt flank pain Disposition: 01 HOME, SELF-CARE Condition: STABLE Referrals: NO PCP (PCP) Patient Instructions: Flank Pain, Uoer-rh-Dofu, Urinary Tract Infection, Easy- to-Read Additional Instructions: Activity as tolerated. Medications as prescribed. Tylenol or ibuprofen for fever chills and generalized body aches and discomfort. Drink plenty of fluids such as water and cranberry juice. Avoid cranberry juice cocktail, carbonated beverages, caffeine, alcohol, citrus fruits as these are considered irritants to the bladder. Follow-up primary care physician next 7-10 days. Return back to emergency prior signs symptoms of become worse. Scripts Ciprofloxacin Hcl (CIPRO) 500 Mg Tablet 1 TAB PO BID, #14 TAB Prov: REY BRUNO APRN 02/22/17 Problem Qualifiers Primary Impression: UTI (urinary tract infection) Urinary tract infection type: site unspecified Hematuria presence: without hematuria Qualified Codes: N39.0 - Urinary tract infection, site not specified REY BRUNO APRN Feb 22, 2017 14:46
== END 2017-02-22 14:53 | disposition home or self-care (01) ==
LOC: ER 12:01
DX: N39.0 Urinary tract infection, site not specified (principal); K21.9 Gastro-esophageal reflux disease without esophagitis; Z90.89 Acquired absence of other organs; Z90.49 Acquired absence of other specified parts of digestive tract; Z98.51 Tubal ligation status
CPT/HCPCS: 81001; 81025; 87086; 99284

== ENCOUNTER 2017-04-01 16:05 | Emergency (ER) | payer SELFPAY ==
[~2017-04-01] VITALS: Ht 170.2 cm; Wt 94.3 kg
[~2017-04-01 16:05] MED LIST changes: +CIPR500T94 PO
[2017-04-01 16:48] LABS: BASO % 0 % (0-3); EOS % 1 % (0-3); HEMATOCRIT 34.1 % (36.0-47.0); HEMOGLOBIN 10.9 g/dL (12.0-15.5); LYMPH # 1.1 x10^3/uL (1.0-4.8); LYMPH % 13 % (24-48); MEAN CORPUSCULAR HEMOGLOBIN 22 pg (25-35); MEAN CORPUSCULAR HGB CONC 32 g/dL (31-37); MEAN CORPUSCULAR VOLUME 70 fL (79-100); MONO % 6 % (0-9); NEUT % 80 % (31-73); PLATELET COUNT 249 x10^3/uL (140-400); RED BLOOD COUNT 4.88 x10^6/uL (3.50-5.40); WHITE BLOOD COUNT 8.5 x10^3/uL (4.0-11.0)
[2017-04-01 17:08] LABS: CALCIUM 9.6 mg/dL (8.5-10.1); GFR 75.1; POTASSIUM 3.5 mmol/L (3.5-5.1)
--- NOTE | 2017-04-01 17:10 | ED.ADGEN ---
Past Medical History Past Medical History: Hypertension Additional Past Medical Histor: gestational diabetes Past Surgical History: Cholecystectomy, , Tubal ligation Additional Past Surgical Histo: DNC Alcohol Use: Occasionally Drug Use: None Adult General Chief Complaint Chief Complaint: CHEST PAIN HPI HPI Patient is a 36 year old woman, history of gestational diabetes, and a diagnosis of hypertension 2 weeks ago, who presents to the emergency department with a complaint of headache, chest tightness, and hypertension. Patient states that she began experiencing the symptoms earlier today, denies any weakness, numbness or tingling, any vision changes, states that she feels lightheaded, and is a frontal throbbing headache. States he also feels some chest tightness. She states these are the symptoms she experienced when she was diagnosed hypertension several weeks ago. She states that she was prescribed lisinopril, which she "has been taking liberal my blood pressure goes up", but has not been taking in a regular basis and has not taken today. Blood pressure on arrival is 170s over 100s, heart rate is in the 80s, patient denies any shortness breath, any nausea or vomiting, any focal weakness, numbness or tingling, any vertiginous type symptoms currently or previously, any injuries. She has not taken any medication prior to coming to the ED. She denies any drugs, alcohol or cigarettes. Review of Systems Review of Systems Constitutional: Denies fever or chills. [] Eyes: Denies change in visual acuity. [] HENT: Denies nasal congestion or sore throat. [] Respiratory: Denies cough or shortness of breath. [] Cardiovascular: Chest tightness, no edema. GI: Denies abdominal pain, nausea, vomiting, bloody stools or diarrhea. [] : Denies dysuria. [] Musculoskeletal: Denies back pain or joint pain. [] Integument: Denies rash. [] Neurologic: Denies focal weakness or sensory changes. Headache. Endocrine: Denies polyuria or polydipsia. [] Lymphatic: Denies swollen glands. [] Psychiatric: Denies depression or anxiety. [] Current Medications Current Medications Current Medications Medications (Trade) Dose Ordered Sig/Katiana Start Time Stop Time Status Last Admin Dose Admin Acetaminophen (Tylenol) 1,000 mg 1X ONCE 04/01/17 17:15 04/01/17 17:16 DC 04/01/17 17:19 1,000 MG Fentanyl Citrate (Fentanyl 2ml Vial) 25 mcg PRN Q15MIN PRN 04/01/17 17:30 04/01/17 20:53 DC 04/01/17 18:31 25 MCG Ketorolac Tromethamine (Toradol) 10 mg 1X ONCE 04/01/17 17:45 04/01/17 17:47 DC 04/01/17 17:56 10 MG Lisinopril (Prinivil) 10 mg 1X ONCE 04/01/17 17:15 04/01/17 17:16 DC 04/01/17 17:25 10 MG Nitroglycerin (Nitrostat) 0.4 mg PRN Q5MIN PRN 04/01/17 17:30 04/01/17 20:53 DC 04/01/17 17:52 0.4 MG Ondansetron HCl (Zofran) 4 mg 1X ONCE 04/01/17 17:15 04/01/17 17:16 DC 04/01/17 17:19 4 MG Allergies Allergies Allergies Coded Allergies Type Severity Reaction Last Updated Verified No Known Drug Allergies 09/19/13 No Physical Exam Physical Exam Constitutional: Well developed, well nourished, no acute distress, non-toxic appearance. [] HENT: Normocephalic, atraumatic, bilateral external ears normal, oropharynx moist, no oral exudates, nose normal. [] Eyes: PERRLA, EOMI, conjunctiva normal, no discharge. [] Neck: Normal range of motion, no tenderness, supple, no stridor. [] Cardiovascular:Heart rate regular rhythm, no murmur, S1, S2, no rubs or gallops. []Patient with mild anterior chest wall tenderness or bruising symptoms , no crepitus. No lesions. Lungs & Thorax: Bilateral breath sounds clear to auscultation, no wheezing, rhonchi, rales. [] Abdomen: Bowel sounds normal, soft, no tenderness, no masses, no pulsatile masses. [] Skin: Warm, dry, no erythema, no rash. [] Back: No tenderness, no CVA tenderness. [] Extremities: No tenderness, no cyanosis, no clubbing, ROM intact, no edema. [] Negative Homans sign. Neurologic: Alert and oriented X 3, normal motor function, normal sensory function, no focal deficits noted. []5-5 strength in all extremities with normal neurologic examination. Psychologic: Affect normal, judgement normal, mood normal. [] Current Patient Data Vital Signs Vital Signs Date Time Temp Pulse Resp B/P (MAP) Pulse Ox O2 Delivery O2 Flow Rate FiO2 04/01/17 20:30 61 18 137/89 (105) 99 04/01/17 18:31 Room Air 04/01/17 16:13 99.3 99.3 Lab Values Laboratory Tests Test 04/01/17 16:27 04/01/17 17:00 White Blood Count 8.5 x10^3/uL (4.0-11.0) Red Blood Count 4.88 x10^6/uL (3.50-5.40) Hemoglobin 10.9 g/dL (12.0-15.5) L Hematocrit 34.1 % (36.0-47.0) L Mean Corpuscular Volume 70 fL (79-100) L Mean Corpuscular Hemoglobin 22 pg (25-35) L Mean Corpuscular Hemoglobin Concent 32 g/dL (31-37) Red Cell Distribution Width 16.0 % (11.5-14.5) H Platelet Count 249 x10^3/uL (140-400) Neutrophils (%) (Auto) 80 % (31-73) H Lymphocytes (%) (Auto) 13 % (24-48) L Monocytes (%) (Auto) 6 % (0-9) Eosinophils (%) (Auto) 1 % (0-3) Basophils (%) (Auto) 0 % (0-3) Neutrophils # (Auto) 6.7 x10^3uL (1.8-7.7) Lymphocytes # (Auto) 1.1 x10^3/uL (1.0-4.8) Monocytes # (Auto) 0.5 x10^3/uL (0.0-1.1) Eosinophils # (Auto) 0.0 x10^3/uL (0.0-0.7) Basophils # (Auto) 0.0 x10^3/uL (0.0-0.2) Platelet Estimate Adequate (ADEQUATE) Polychromasia Slight Hypochromasia Mod Microcytosis Marked Sodium Level 143 mmol/L (136-145) Potassium Level 3.5 mmol/L (3.5-5.1) Chloride Level 106 mmol/L (98-107) Carbon Dioxide Level 27 mmol/L (21-32) Anion Gap 10 (6-14) Blood Urea Nitrogen 14 mg/dL (7-20) Creatinine 1.0 mg/dL (0.6-1.0) Estimated GFR (Cockcroft-Gault) 75.1 Glucose Level 99 mg/dL (70-99) Calcium Level 9.6 mg/dL (8.5-10.1) Troponin I Quantitative < 0.017 ng/mL (0.000-0.055) Lipase 128 U/L (73-393) Urine Collection Type Unknown Urine Color Straw Urine Clarity Clear Urine pH 7.0 Urine Specific [place] <=1.005 Urine Protein Negative mg/dL (NEG-TRACE) Urine Glucose (UA) Negative mg/dL (NEG) Urine Ketones (Stick) Negative mg/dL (NEG) Urine Blood Negative (NEG) Urine Nitrite Negative (NEG) Urine Bilirubin Negative (NEG) Urine Urobilinogen Dipstick 0.2 mg/dL (0.2 mg/dL) Urine Leukocyte Esterase Trace (NEG) Urine RBC 0 /HPF (0-2) Urine WBC Rare /HPF (0-4) Urine Squamous Epithelial Cells Many /LPF Urine Bacteria Few /HPF (0-FEW) Urine Mucus Slight /LPF Urine Opiates Screen Neg (NEG) Urine Methadone Screen Neg (NEG) Urine Barbiturates Neg (NEG) Urine Phencyclidine Screen Neg (NEG) Urine Amphetamine/Methamphetamine Neg (NEG) Urine Benzodiazepines Screen Neg (NEG) Urine Cocaine Screen Neg (NEG) Urine Cannabinoids Screen Neg (NEG) Urine Ethyl Alcohol Neg (NEG) Laboratory Tests 04/01/17 16:27 Laboratory Tests 04/01/17 16:27 EKG EKG EC: Sinus rhythm, heart rate 94 beats are minute, upright axis, QTC of 413, TX 140, QRS of 74, contour normality is noted in lead V2 and V3, with T- wave inversions noted, no ST elevations or depressions, abnormal ECG, does not meet STEMI criteria. As interpreted by me.[] Radiology/Procedures Radiology/Procedures Chest x-ray: Two-view: Normal cardiopulmonary silhouette, no infiltrates, no effusions, no soft tissue or bony abnormalities identified. As interpreted by me.[] Course & Med Decision Making Course & Med Decision Making Pertinent Labs and Imaging studies reviewed. (See chart for details) Patient's repeat blood pressure is 170/95, heart rate of 79. Patient states that she is aware of radiation risks, she had a CT performed of the head only 2 weeks ago that was normal, at this time as she is a normal neurologic examination, although she does have a headache with hypertension, we'll hold off on any additional imaging of the head. Patient is agreeable to x-ray of the chest based on her complaints of chest tightness. We did discuss use of antihypertensive agent, pain medication, and obtaining laboratory studies to ensure that kidney function and other a letter lites within normal limits, patient is agreeable with this plan. Patient received 10 mg of lisinopril as stated, along with Tylenol, on reassessment blood pressure is improving, patient then received Toradol as well, with nearly full resolution of her headache, blood pressure improved to 140s over 80s initially, then down to 130s over 70s. Heart rate remained in the 70s and 80s. After observation in the ED, patient states that she is now feeling much better, headache is resolved, she is ambulating without difficulty in the ED. No chest pain, no other symptoms. I did discuss findings as above with patient's, patient does not have any evidence of concerning end organ damage at this time, however, did express to patient the extreme importance of taking her medication daily as directed, and of establishing care with a primary care provider who can follow her blood pressure medication, and perform adjustment is needed. Patient voiced understanding and agreement. She still has 29 days of lisinopril, at this time continued on lisinopril, as it did work for her in the ED, discharged home in stable condition with list of available clinics in the area, clear and detailed return instructions and precautions. Dragon Disclaimer Dragon Disclaimer This electronic medical record was generated, in whole or in part, using a voice recognition dictation system. Departure Impression: Primary Impression: Malignant hypertension Disposition: 01 HOME, SELF-CARE Condition: IMPROVED MAYELA BARROS DO Apr 01, 2017 17:10
[2017-04-01] MEDS ORDERED: ONDANSETRON PF 4 MG/2 ML VIAL. IV ONE (17:15)
[2017-04-01] MEDS ORDERED: LISINOPRIL 10 MG TABLET PO ONE (17:15)
[2017-04-01] MEDS ORDERED: ACETAMINOPHEN 500 MG TABLET PO ONE (17:15)
[2017-04-01 17:16] LABS: BILIRUBIN,URINE NEGATIVE (NEG); GLUCOSE,URINE NEGATIVE (NEG); NITRITE,URINE NEGATIVE (NEG); PROTEIN,URINE NEGATIVE (NEG-TRACE); UROBILINOGEN,URINE 0.2 mg/dL (0.2 mg/dL)
[2017-04-01 17:27] LABS: BACTERIA,URINE FEW /HPF (0-FEW); RBC,URINE 0 /HPF (0-2); SQUAMOUS EPITHELIAL CELL,UR MANY /LPF; WBC,URINE RARE /HPF (0-4)
[2017-04-01] MEDS ORDERED: NITROGLYCERIN SUBLINGUAL 0.4 MG BOTTLE OF 25. SL PRN (17:30)
[2017-04-01 17:45] LABS: HYPOCHROMIA MOD; MICROCYTOSIS MARKED; PLT ESTIMATE ADEQUATE (ADEQUATE); POLYCHROMASIA SLIGHT
[2017-04-01] MEDS ORDERED: KETOROLAC 15 MG/ML VIAL. IV ONE (17:45)
[2017-04-01] MEDS: fentaNYL PF VIAL 100 MCG/2 ML VIAL IV PRN ×2 (17:54→18:31)
[2017-04-01 17:59] LABS: BARBITURATES NEG (NEG); BENZODIAZEPINES NEG (NEG); CANNABINOIDS NEG (NEG); COCAINE NEG (NEG); METHADONE NEG (NEG); OPIATES NEG (NEG); PHENCYCLIDINE NEG (NEG)
[2017-04-01 20:30] VITALS: BP 137/89
--- NOTE | 2017-04-02 07:26 | EKG ---
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
--- NOTE | 2017-04-02 09:33 | RAD ---
2 view CXR: Clinical indications: Chest pain today. Findings: No acute lung infiltrate or pleural effusion or pulmonary edema or lung mass or pneumothorax is seen. The heart size, pulmonary vasculature, mediastinum and both mika are unremarkable. The osseous structures appear intact. Impression: No acute radiographic abnormality is seen.
== END 2017-04-01 20:53 | disposition home or self-care (01) ==
LOC: ER 16:05
DX: I10 Essential (primary) hypertension (principal); R07.89 Other chest pain
CPT/HCPCS: 36415; 71020; 80048; 80307; 81001; 83690; 84484; 85025; 93005; 96374; 96375; 96376; 99285; J1885; J2405; J3010; G0479

== ENCOUNTER 2018-01-20 14:28 | Inpatient (IN) | payer SELFPAY ==
[2018-01-20 16:13] LABS: TROPONINI < 0.017 ng/mL (0.000-0.055)
[2018-01-20 16:30] LABS: D-DIMER 0.37 ug/mlFEU (0.00-0.50)
[2018-01-20 16:49] LABS: INR 0.9 (0.8-1.1); PARTIAL THROMBOPLASTIN TIME 28 SEC (24-38); PROTHROMBIN TIME PATIENT 12.1 SEC (11.7-14.0)
[2018-01-20] MEDS ORDERED: CONTRAST GIVEN. MC (17:00)
[2018-01-20 18:52] LABS: ANION GAP 13 (6-14); BLOOD UREA NITROGEN 11 mg/dL (7-20); CALCIUM 9.6 mg/dL (8.5-10.1); CARBON DIOXIDE 22 mmol/L (21-32); CHLORIDE 107 mmol/L (98-107); CREATININE 0.9 mg/dL (0.6-1.0); GFR 84.3; GLUCOSE 104 mg/dL (70-99); POTASSIUM 3.3 mmol/L (3.5-5.1); SODIUM 142 mmol/L (136-145)
[2018-01-20] MEDS: IOHEXOL 300 MG/ML 100ML VIAL. IV (19:14)
[2018-01-20] MEDS ORDERED: ONDANSETRON PF 4 MG/2 ML VIAL. IV (20:30)
[2018-01-20] MEDS: fentaNYL PF VIAL 100 MCG/2 ML VIAL IV (21:22)
[2018-01-20] MEDS ORDERED: HYDROcodone/APAP 5/325MG 1 TAB TABLET PO (21:45)
[2018-01-20] MEDS ORDERED: NON FORMULARY ITEM (Albuterol Sulfate (Proair Hfa Inhaler) 1 PUFF) INH (21:45)
[2018-01-20] MEDS ORDERED: ACETAMINOPHEN 500 MG TABLET PO (21:45)
[2018-01-20] MEDS ORDERED: ZOLPIDEM 5 MG TABLET. PO (21:45)
[2018-01-20] MEDS ORDERED: LABETALOL 20 MG/4 ML DISP.SYRIN. IVP (21:45)
[2018-01-20] MEDS ORDERED: guaiFENesin DM 200MG/20MG 10 ML SYRUP PO (22:00)
[2018-01-21] MEDS: ANTI-COAG MONITOR BY PHARMACY. MC (02:21)
[2018-01-21] MEDS: PANTOPRAZOLE 40 MG TABLET.DR. PO (08:15)
[2018-01-21] MEDS: HYDROcodone/APAP 5/325MG 1 TAB TABLET PO ×2 (14:24→21:40)
[2018-01-21 22:39] LABS: NEG OBC UR NEG; POS OBC UR POS; U PREG PATIENT NEGATIVE (NEG)
[2018-01-22] MEDS: PANTOPRAZOLE 40 MG TABLET.DR. PO (08:12)
[2018-01-22] MEDS: HYDROcodone/APAP 5/325MG 1 TAB TABLET PO ×3 (08:12→19:29)
[2018-01-22] MEDS: LISINOPRIL 5 MG TABLET. PO (12:18)
[2018-01-22 14:12] LABS: HOMOCYSTINE LEVEL 6.8 umol/L (0.0-15.0)
[2018-01-22] MEDS: ALBUTEROL SULFATE 2.5 MG/3 ML NEBU. NEB (15:49)
[2018-01-22 18:40] LABS: TROPONINI < 0.017 ng/mL (0.000-0.055)
[2018-01-22 18:46] LABS: CKMB INDEX 0.7 % (0-4); CKMB MASS 0.7 ng/mL (0.0-3.6); CREATINE KINASE 95 U/L (26-192)
[2018-01-22] MEDS: APIXABAN 5 MG TABLET. PO (23:17)
[2018-01-22] MEDS: ONDANSETRON PF 4 MG/2 ML VIAL. IV (23:19)
[2018-01-23 05:48] LABS: TROPONINI < 0.017 ng/mL (0.000-0.055)
[2018-01-23 05:58] LABS: CKMB INDEX 0.9 % (0-4); CKMB MASS 0.7 ng/mL (0.0-3.6); CREATINE KINASE 82 U/L (26-192)
[2018-01-23] MEDS: PANTOPRAZOLE 40 MG TABLET.DR. PO (08:39)
[2018-01-23] MEDS: APIXABAN 5 MG TABLET. PO ×2 (08:39→21:29)
[2018-01-23] MEDS: LISINOPRIL 5 MG TABLET. PO (08:39)
[2018-01-23] MEDS: HYDROcodone/APAP 5/325MG 1 TAB TABLET PO ×3 (08:40→21:29)
[2018-01-23] MEDS: ASA/APAP/CAFFEINE 250/250/65MG TABLET. PO (13:45)
[2018-01-23] MEDS ORDERED: POLYETHYLENE GLYCOL 3350 17 GM PACKET. PO (20:30)
[2018-01-23] MEDS: DOCUSATE SODIUM 100 MG CAPSULE. PO (21:29)
[2018-01-24] MEDS: PANTOPRAZOLE 40 MG TABLET.DR. PO (07:33)
[2018-01-24] MEDS: APIXABAN 5 MG TABLET. PO (07:34)
[2018-01-24] MEDS: LISINOPRIL 5 MG TABLET. PO ×2 (08:18→12:09)
[2018-01-24] MEDS: HYDROcodone/APAP 5/325MG 1 TAB TABLET PO ×2 (08:57→13:23)
[2018-01-24] MEDS: ANTI-COAG MONITOR BY PHARMACY. MC (12:25)
[2018-01-26 12:39] LABS: ANTITHROMBIN III SEE SEPARATE REPORT; LUPUS ANTICOAGULANT SEE SEPARATE REPORT; PROTEIN C ACTIVITY SEE SEPARATE REPORT; PROTEIN S ACTIVITY SEE SEPARATE REPORT
[2018-01-26 12:39] LABS: CARDIOLIPIN ANTIBODIES SEE SEPARATE REPORT
[2018-01-26 19:18] LABS: PROTHROMBIN GENE MUTATION Negative (.)
== END 2018-01-24 13:52 | disposition home or self-care (01) | DRG 301 ==
LOC: ER 14:28 → 4 NORTH 17:17
PROVIDERS: Internal Medicine
DX: I82.621 Acute embolism and thrombosis of deep veins of right upper extremity (principal); R07.89 Other chest pain; I48.91 Unspecified atrial fibrillation; I10 Essential (primary) hypertension; Z86.32 Personal history of gestational diabetes; Z79.899 Other long term (current) drug therapy; Z90.49 Acquired absence of other specified parts of digestive tract; Z98.51 Tubal ligation status; Z82.49 Family history of ischemic heart disease and other diseases of the circulatory system
CPT/HCPCS: 36415; 71046; 71275; 80048; 81025; 81240; 82553; 83090; 84484; 85300; 85302; 85306; 85379; 85610; 85730; 86147; 93005; 93306; 93971; 94640; 94760; 96372; 99285; 99285-25; J1650; J2405; J3010; J7613; Q9967

== ENCOUNTER 2018-03-21 18:40 | Emergency (ER) | payer SELFPAY ==
[~2018-03-21] VITALS: Ht 170.2 cm; Wt 93.0 kg
[~2018-03-21 18:40] MED LIST changes: +LISI-338 PO
[2018-03-21] MEDS ORDERED: ONDANSETRON PF 4 MG/2 ML VIAL. IV ONE (19:30)
[2018-03-21] MEDS ORDERED: MORPHINE SULFATE 4 MG/ML VIAL. IV ONE (19:30)
[2018-03-21] MEDS ORDERED: KETOROLAC 15 MG/ML VIAL. IV ONE (19:45)
[2018-03-21 20:06] LABS: BASO % 1 % (0-3); EOS # 0.1 x10^3/uL (0.0-0.7); EOS % 1 % (0-3); HEMATOCRIT 31.6 % (36.0-47.0); HEMOGLOBIN 9.9 g/dL (12.0-15.5); LYMPH # 2.2 x10^3/uL (1.0-4.8); LYMPH % 34 % (24-48); MEAN CORPUSCULAR HEMOGLOBIN 21 pg (25-35); MEAN CORPUSCULAR HGB CONC 31 g/dL (31-37); MEAN CORPUSCULAR VOLUME 66 fL (79-100); MONO # 0.4 x10^3/uL (0.0-1.1); MONO % 7 % (0-9); NEUT # 3.7 x10^3uL (1.8-7.7); NEUT % 58 % (31-73); PLATELET COUNT 275 x10^3/uL (140-400); RED BLOOD COUNT 4.78 x10^6/uL (3.50-5.40); RED CELL DISTRIBUTION WIDTH 16.8 % (11.5-14.5); WHITE BLOOD COUNT 6.5 x10^3/uL (4.0-11.0)
[2018-03-21 20:10] LABS: CALCIUM 9.8 mg/dL (8.5-10.1); CREATININE 0.8 mg/dL (0.6-1.0); GFR 96.6; POTASSIUM 3.4 mmol/L (3.5-5.1)
[2018-03-21 20:15] LABS: ALBUMIN 3.7 g/dL (3.4-5.0); ALBUMIN/GLOBULIN RATIO 0.9 (1.0-1.7); TOTAL BILIRUBIN 0.5 mg/dL (0.2-1.0); TOTAL PROTEIN 7.7 g/dL (6.4-8.2)
[2018-03-21 20:36] VITALS: BP 132/71
[2018-03-21 21:09] LABS: PLT ESTIMATE ADEQUATE (ADEQUATE)
[2018-03-21 21:10] LABS: HYPOCHROMIA SLIGHT; MICROCYTOSIS SLIGHT
[2018-03-21] MEDS ORDERED: CYCL10TA2 PO (21:11)
--- NOTE | 2018-03-21 21:11 | PHYS DOC ---
Past Medical History Past Medical History: DVT, Hypertension Additional Past Medical Histor: gestational diabetes Past Surgical History: Cholecystectomy, , Tubal ligation Additional Past Surgical Histo: DNC Alcohol Use: Occasionally Drug Use: None Adult General Chief Complaint Chief Complaint: UPPER EXTREMITY PAIN HPI HPI Patient is a 37 year old F who presents with right shoulder/neck pain. She has hx of DVT that was dx here in january. She is on Eliquis. She denies injury. She reports she has started a new job and does lift. Review of Systems Review of Systems Constitutional: Denies fever or chills [] Respiratory: Denies cough or shortness of breath [] Cardiovascular: No chest pain or palpitations GI: Denies abdominal pain, nausea, vomiting : Denies dysuria or hematuria [] Musculoskeletal: Reports right neck/shoulder pain Integument: Denies rash or skin lesions [] Neurologic: Denies headache, focal weakness or sensory changes [] All other systems were reviewed and found to be within normal limits, except as documented in this note. Current Medications Current Medications Current Medications Medications (Trade) Dose Ordered Sig/Katiana Start Time Stop Time Status Last Admin Dose Admin Ketorolac Tromethamine (Toradol 15mg Vial) 15 mg 1X ONCE 03/21/18 19:45 03/21/18 19:46 DC 03/21/18 19:51 15 MG Morphine Sulfate (Morphine Sulfate) 4 mg 1X ONCE 03/21/18 19:30 03/21/18 19:43 DC Ondansetron HCl (Zofran) 4 mg 1X ONCE 03/21/18 19:30 03/21/18 19:34 DC 03/21/18 19:51 4 MG Allergies Allergies Allergies Coded Allergies Type Severity Reaction Last Updated Verified No Known Drug Allergies 09/19/13 No Physical Exam Physical Exam Constitutional: Well developed, well nourished, no acute distress, non-toxic appearance. [] HENT: Normocephalic, atraumatic Eyes: PERRLA, EOMI, conjunctiva normal, no discharge. [] Neck: Limited range of motion to right, paraspinous tenderness, supple, no stridor. [] Cardiovascular:Heart rate regular rhythm, no murmur [] Lungs & Thorax: Bilateral breath sounds clear to auscultation [] Skin: Warm, dry, no erythema, no rash. [] Extremities: Mild tenderness, ROM intact, no edema. [] Neurologic: Alert and oriented X 3, normal motor function, normal sensory function, no focal deficits noted. [] Psychologic: Affect normal, judgement normal, mood normal. [] Current Patient Data Vital Signs Vital Signs Date Time Temp Pulse Resp B/P (MAP) Pulse Ox O2 Delivery O2 Flow Rate FiO2 03/21/18 20:36 79 16 132/71 (91) 96 Room Air 03/21/18 19:00 98.0 98.0 Lab Values Laboratory Tests Test 03/21/18 19:35 03/21/18 19:53 POC Urine HCG, Qualitative Hcg negative (Negative) White Blood Count 6.5 x10^3/uL (4.0-11.0) Red Blood Count 4.78 x10^6/uL (3.50-5.40) Hemoglobin 9.9 g/dL (12.0-15.5) L Hematocrit 31.6 % (36.0-47.0) L Mean Corpuscular Volume 66 fL (79-100) L Mean Corpuscular Hemoglobin 21 pg (25-35) L Mean Corpuscular Hemoglobin Concent 31 g/dL (31-37) Red Cell Distribution Width 16.8 % (11.5-14.5) H Platelet Count 275 x10^3/uL (140-400) Neutrophils (%) (Auto) 58 % (31-73) Lymphocytes (%) (Auto) 34 % (24-48) Monocytes (%) (Auto) 7 % (0-9) Eosinophils (%) (Auto) 1 % (0-3) Basophils (%) (Auto) 1 % (0-3) Neutrophils # (Auto) 3.7 x10^3uL (1.8-7.7) Lymphocytes # (Auto) 2.2 x10^3/uL (1.0-4.8) Monocytes # (Auto) 0.4 x10^3/uL (0.0-1.1) Eosinophils # (Auto) 0.1 x10^3/uL (0.0-0.7) Basophils # (Auto) 0.0 x10^3/uL (0.0-0.2) Platelet Estimate Adequate (ADEQUATE) Hypochromasia Slight Microcytosis Slight Sodium Level 143 mmol/L (136-145) Potassium Level 3.4 mmol/L (3.5-5.1) L Chloride Level 105 mmol/L (98-107) Carbon Dioxide Level 28 mmol/L (21-32) Anion Gap 10 (6-14) Blood Urea Nitrogen 14 mg/dL (7-20) Creatinine 0.8 mg/dL (0.6-1.0) Estimated GFR (Cockcroft-Gault) 96.6 BUN/Creatinine Ratio 18 (6-20) Glucose Level 83 mg/dL (70-99) Calcium Level 9.8 mg/dL (8.5-10.1) Total Bilirubin 0.5 mg/dL (0.2-1.0) Aspartate Amino Transferase (AST) 13 U/L (15-37) L Alanine Aminotransferase (ALT) 17 U/L (14-59) Alkaline Phosphatase 62 U/L (46-116) Total Protein 7.7 g/dL (6.4-8.2) Albumin 3.7 g/dL (3.4-5.0) Albumin/Globulin Ratio 0.9 (1.0-1.7) L Laboratory Tests 03/21/18 19:53 Laboratory Tests 03/21/18 19:53 EKG EKG [] Radiology/Procedures Radiology/Procedures [] Course & Med Decision Making Course & Med Decision Making Pertinent Labs and Imaging studies reviewed. (See chart for details) Suspect torticollis r/t new activities at work and protecting right arm. Plan: naproxen, flexeril rx, warm compress, f/u with PCP, return precautions reviewed Donovan Disclaimer Dragbebeto Disclaimer This electronic medical record was generated, in whole or in part, using a voice recognition dictation system. Departure Departure Impression: Primary Impression: Torticollis, acute Disposition: 01 HOME, SELF-CARE Condition: IMPROVED Referrals: UNKNOWN PCP NAME (PCP) Patient Instructions: Torticollis, Acute Scripts Cyclobenzaprine Hcl (CYCLOBENZAPRINE HCL) 10 Mg Tablet 1 TAB PO TID PRN for MUSCLE SPASMS, #30 TAB Prov: YONY KILPATRICK APRN 03/21/18 YONY KILPATRICK APRN Mar 21, 2018 21:11
== END 2018-03-21 21:19 | disposition home or self-care (01) ==
LOC: ER 18:40
DX: M43.6 Torticollis (principal); M25.511 Pain in right shoulder; I10 Essential (primary) hypertension; Z86.718 Personal history of other venous thrombosis and embolism; Z90.49 Acquired absence of other specified parts of digestive tract; Z98.890 Other specified postprocedural states; Z98.51 Tubal ligation status
CPT/HCPCS: 36415; 80053; 81025; 85025; 96374; 96375; 99284; J1885; J2405

== ENCOUNTER 2018-06-09 21:16 | Emergency (ER) | payer SELFPAY ==
[~2018-06-09] VITALS: Ht 170.2 cm; Wt 88.5 kg
[~2018-06-09 21:16] MED LIST changes: +ALBU2.5V8 INH; +CYCL10TA2 PO; -PROAIR HFA8.5 GM INH
[2018-06-09 21:30] VITALS: BP 178/107
[2018-06-09] MEDS ORDERED: DEXAMETHASONE SOD PHOS 20 MG/5 ML VIAL. PO ONE (22:00)
[2018-06-09] MEDS ORDERED: ALBUTEROL SULFATE 2.5 MG/3 ML NEBU. NEB ONE (22:00)
[2018-06-09] MEDS ORDERED: IPRATRPIUM/ALBUTEROL 0.5/2.5MG 3 ML NEBU. NEB ONE (22:00)
[2018-06-09 22:50] LABS: INFLUENZA A PATIENT NEGATIVE (NEGATIVE); INFLUENZA B PATIENT NEGATIVE (NEGATIVE)
--- NOTE | 2018-06-09 23:13 | PHYS DOC ---
Past Medical History Past Medical History: DVT, Hypertension Additional Past Medical Histor: gestational diabetes Past Surgical History: Cholecystectomy, , Tubal ligation Additional Past Surgical Histo: DNC Alcohol Use: Occasionally Drug Use: None Adult General Chief Complaint Chief Complaint: Congestion HPI HPI Patient is a 37 year old female with complaints of a productive cough with thick yellow sputum, wheezing, fatigue, bilateral ear fullness, and sinus pressure for the last for 5 days. She denies any nausea at this time states that earlier she did have posttussive emesis 2. She denies any abdominal pain. Patient denies any fever or sore throat. She reports feeling short of breath with her coughing episodes and with activity. She also states that it hurts inside her chest when she coughs. Review of Systems Review of Systems Constitutional: Denies fever or chills [] HENT: See history of present illness Respiratory: See history of present illness Cardiovascular: No additional information not addressed in HPI [] GI: Denies abdominal pain, see history of present illness Musculoskeletal: Denies back pain or joint pain [] Integument: Denies rash or skin lesions [] Neurologic: Denies headache, focal weakness or sensory changes [] All other systems were reviewed and found to be within normal limits, except as documented in this note. Current Medications Current Medications Current Medications Medications (Trade) Dose Ordered Sig/Katiana Start Time Stop Time Status Last Admin Dose Admin Albuterol Sulfate (Ventolin Neb Soln) 2.5 mg 1X ONCE 06/09/18 22:00 06/09/18 22:01 DC 06/09/18 22:06 2.5 MG Albuterol/ Ipratropium (Duoneb) 3 ml 1X ONCE 06/09/18 22:00 06/09/18 22:01 DC 06/09/18 22:06 3 ML Dexamethasone Sodium Phosphate (Decadron) 10 mg 1X ONCE 06/09/18 22:00 06/09/18 22:01 DC 06/09/18 22:21 10 MG Allergies Allergies Allergies Coded Allergies Type Severity Reaction Last Updated Verified No Known Drug Allergies 09/19/13 No Physical Exam Physical Exam Constitutional: Well developed, well nourished, no acute distress, ill appearance. [] HENT: Normocephalic, atraumatic, bilateral external ears normal, bilateral TMs normal, posterior pharynx normal, oropharynx moist, no oral exudates, nose normal. [] Eyes: conjunctiva normal, no discharge. [] Neck: Normal range of motion, no tenderness, supple, no stridor. [] Cardiovascular:Heart rate regular rhythm, no murmur [] Lungs & Thorax: Bilateral breath sounds expiratory wheezes throughout and rhonchi in all nguyen Skin: Warm, dry, no erythema, no rash. [] Extremities: No cyanosis, no clubbing, ROM intact, no edema. [] Neurologic: Alert and oriented X 3, normal motor function, normal sensory function, no focal deficits noted. [] Psychologic: Affect normal, judgement normal, mood normal. [] Current Patient Data Vital Signs Vital Signs Date Time Temp Pulse Resp B/P (MAP) Pulse Ox O2 Delivery O2 Flow Rate FiO2 06/09/18 22:09 98 Room Air 06/09/18 21:30 98.8 91 20 178/107 (130) 98.8 Lab Values Laboratory Tests Test 06/09/18 22:25 Influenza Type A Antigen Negative (NEGATIVE) Influenza Type B Antigen Negative (NEGATIVE) EKG EKG [] Radiology/Procedures Radiology/Procedures PROCEDURE: CHEST PA & LATERAL Examination: CHEST PA LATERAL History: COUGH, SOA, X A FEW DAYS Comparison/Correlation: 01/20/2018 two-view chest x-ray exam Findings: PA and lateral views of chest were obtained. Heart size and pulmonary vasculature are normal. No infiltrate or pleural effusion. No pneumothorax. Right upper quadrant surgical clips are present. Impression: No active disease.[] Course & Med Decision Making Course & Med Decision Making Pertinent Labs and Imaging studies reviewed. (See chart for details) [] Staff Physician Addendum: I was working in the ER during the course of this patient's visit. I was available for consultation as needed, but I was not directly involved in the care of this patient. Dragon Disclaimer Dragon Disclaimer This electronic medical record was generated, in whole or in part, using a voice recognition dictation system. Departure Departure Impression: Primary Impression: Bronchitis Additional Impression: Upper respiratory infection Disposition: 01 HOME, SELF-CARE Condition: STABLE Referrals: UNKNOWN PCP NAME (PCP) Patient Instructions: Acute Bronchitis, [id number] Additional Instructions: Fill prescription(s) and use as directed. Cool mist humidifier in room at bedtime. Tylenol or ibuprofen prn pain/fever. Increase clear fluids. Avoid triggers such as smoke, fragrance, dust, and pollen. Follow-up with your primary care doctor if symptoms persist, return to ER symptoms worsen. Scripts Prednisone (PREDNISONE) 50 Mg Tablet 1 TAB PO DAILY, #4 TAB 0 Refills Prov: DWAYNE KABA P[employer]ER PATTERN INSPECTOR 06/10/18 Albuterol Sulfate (Proair Hfa) 8.5 Gm Hfa.aer.ad 2 PUFF INH PRN Q6HRS PRN for SHORTNESS OF BREATH for 10 Days, #1 INHALER 0 Refills Prov: DWAYNE KABA APRN 06/10/18 Benzonatate (TESSALON PERLE) 100 Mg Capsule 1 CAP PO TID PRN for COUGH, #21 CAP 0 Refills Prov: DWAYNE KABA APRN 06/10/18 Problem Qualifiers Additional Impression: Upper respiratory infection URI type: unspecified URI Qualified Codes: J06.9 - Acute upper respiratory infection, unspecified DWAYNE KABA APRN Jun 09, 2018 23:13 CRESENCIO SOW MD Jun 10, 2018 05:31
--- NOTE | 2018-06-10 00:01 | RAD ---
Examination: CHEST PA LATERAL History: COUGH, SOA, X A FEW DAYS Comparison/Correlation: 01/20/2018 two-view chest x-ray exam Findings: PA and lateral views of chest were obtained. Heart size and pulmonary vasculature are normal. No infiltrate or pleural effusion. No pneumothorax. Right upper quadrant surgical clips are present. Impression: No active disease. Electronically signed by: Pepe Clifford MD (06/09/2018 11:57 PM) [facility]
[2018-06-10] MEDS ORDERED: ALBU2.5V8 INH (00:17)
[2018-06-10] MEDS ORDERED: PRED50TA PO (00:17)
[2018-06-10] MEDS ORDERED: BENZ100C PO (00:17)
== END 2018-06-10 00:25 | disposition home or self-care (01) ==
LOC: ER 21:16
DX: J06.9 Acute upper respiratory infection, unspecified (principal); J40 Bronchitis, not specified as acute or chronic; Z86.718 Personal history of other venous thrombosis and embolism; I10 Essential (primary) hypertension
CPT/HCPCS: 71046; 87804; 94640; 99284; J1100; J7613; J7620

== ENCOUNTER 2018-11-14 11:13 | Emergency (ER) | payer SELFPAY ==
[~2018-11-14] VITALS: Ht 170.2 cm; Wt 88.5 kg
[~2018-11-14 11:13] MED LIST changes: +BENZ100C PO; +PRED50TA PO
--- NOTE | 2018-11-14 11:44 | PHYS DOC ---
Past Medical History Past Medical History: DVT, Hypertension Additional Past Medical Histor: gestational diabetes Past Surgical History: Cholecystectomy, , Tubal ligation Additional Past Surgical Histo: DNC Alcohol Use: Occasionally Drug Use: None Adult General Chief Complaint Chief Complaint: COUGH HPI HPI Patient is a 38 year old female with history of hypertension who presents to the ED today complaining of a productive cough for 1 week. Patient denies any fever. Review of Systems Review of Systems Constitutional: Denies fever or chills [] Eyes: Denies change in visual acuity, redness, or eye pain [] HENT: Denies nasal congestion or sore throat [] Respiratory: Reports cough, denies shortness of breath [] Cardiovascular: No additional information not addressed in HPI [] GI: Denies abdominal pain, nausea, vomiting, bloody stools or diarrhea [] : Denies dysuria or hematuria [] Musculoskeletal: Denies back pain or joint pain [] Integument: Denies rash or skin lesions [] Neurologic: Denies headache, focal weakness or sensory changes [] All other systems were reviewed and found to be within normal limits, except as documented in this note. Current Medications Current Medications Current Medications Medications (Trade) Dose Ordered Sig/Katiana Start Time Stop Time Status Last Admin Dose Admin Acetaminophen (Tylenol) 1,000 mg 1X ONCE 11/14/18 11:45 11/14/18 11:45 DC Acetaminophen/ Hydrocodone Bitart (Lortab 7.5-325/ 15ml Oral Solution) 15 ml 1X ONCE 11/14/18 11:45 11/14/18 11:46 DC 11/14/18 12:09 15 ML Albuterol/ Ipratropium (Duoneb) 3 ml 1X ONCE 11/14/18 11:45 11/14/18 11:46 DC 11/14/18 12:22 3 ML Benzonatate (Tessalon Perle) 100 mg 1X ONCE 11/14/18 11:45 11/14/18 11:46 DC 11/14/18 11:45 100 MG Ondansetron HCl (Zofran Odt) 4 mg 1X ONCE 11/14/18 11:45 11/14/18 11:46 DC 11/14/18 12:07 4 MG Prednisone (Prednisone) 50 mg 1X ONCE 11/14/18 11:45 11/14/18 11:46 DC 11/14/18 12:09 50 MG Allergies Allergies Allergies Coded Allergies Type Severity Reaction Last Updated Verified No Known Drug Allergies 09/19/13 No Physical Exam Physical Exam Constitutional: Well developed, well nourished, no acute distress, non-toxic appearance. [] HENT: Normocephalic, atraumatic, bilateral external ears normal, oropharynx moist, no oral exudates, nose normal. [] Eyes: PERRLA, EOMI, conjunctiva normal, no discharge. [] Neck: Normal range of motion, no tenderness, supple, no stridor. [] Cardiovascular:Heart rate regular rhythm, no murmur [] Lungs & Thorax: Patient is actively coughing in the ED. Chest is tight, with decrease air movement Abdomen: Bowel sounds normal, soft, no tenderness, no masses, no pulsatile masses. [] Skin: Warm, dry, no erythema, no rash. [] Back: No tenderness, no CVA tenderness. [] Extremities: No tenderness, no cyanosis, no clubbing, ROM intact, no edema. [] Neurologic: Alert and oriented X 3, normal motor function, normal sensory function, no focal deficits noted. [] Psychologic: Affect normal, judgement normal, mood normal. [] Current Patient Data Vital Signs Vital Signs Date Time Temp Pulse Resp B/P (MAP) Pulse Ox O2 Delivery O2 Flow Rate FiO2 11/14/18 12:24 98 Room Air 11/14/18 11:52 98.7 95 22 175/95 (121) 98.7 EKG EKG [] Radiology/Procedures Radiology/Procedures []PROCEDURE: CHEST PA & LATERAL CHEST PA LATERAL History: Cough, chest pain Comparison: June 09, 2018 Findings: 2 views of the chest are submitted. There is no infiltrate, pneumothorax, or effusion. Pericardial cardiac silhouette is within normal limits in size. Impression: 1. There is no radiographic evidence of acute cardiopulmonary disease. Electronically signed by: Coco Gan MD (11/14/2018 12:04 PM) [id number] DICTATED and SIGNED BY: COCO GAN MD DATE: 11/14/18 1200 Course & Med Decision Making Course & Med Decision Making Pertinent Labs and Imaging studies reviewed. (See chart for details) This is a 38-year-old female patient presented to the ED today with a productive cough for 1 week. Chest x-ray interpreted by radiologist as negative for any acute findings. Patient was given a DuoNeb treatment, prednisone. Feeling better. Discharged to home. She states several family members are ill Including one with pneumonia in her house. We'll give her azithromycin for home use. Provided return precautions and discharged in stable condition. Donovan Disclaimer Donovan Disclaimer This electronic medical record was generated, in whole or in part, using a voice recognition dictation system. Departure Departure Impression: Primary Impression: Acute bronchitis Disposition: HOME, SELF-CARE Condition: STABLE Referrals: NO PCP (PCP) follow up with your doctor in 1 week Patient Instructions: Acute Bronchitis Additional Instructions: You were evaluated in the emergency room with symptoms of bronchitis. We put you on medications, take them as prescribed, ensure you complete your antibiotics. Follow-up with your doctor in 1-2 weeks. Come back to the ED at any point symptoms worsen. Establish care with their doctor for high blood pressure management. Scripts Hydrocodone/Chlorphen Polis (HYDROCODONE-CHLORPHENIRAM SUSP) 5 Ml Lisette.er.12h 5 ML PO PRN Q12HR PRN for COUGH, #100 ML 0 Refills Prov: HODAN ENRIQUE APRN 11/14/18 Albuterol Sulfate (VENTOLIN HFA INHALER) 18 Gm Hfa.aer.ad 2 PUFF INH Q4HRS for FOR ASTHMA, #1 INHALER 0 Refills Prov: HODAN ENRIQUE APRN 11/14/18 Prednisone (PREDNISONE) 50 Mg Tablet 1 TAB PO DAILY, #5 TAB Prov: HODAN ENRIQUE APRN 11/14/18 Azithromycin (ZITHROMAX) 250 Mg Tablet 1 PKG PO UD, #1 PKG Prov: HODAN ENRIQUE APRN 11/14/18 Problem Qualifiers Primary Impression: Acute bronchitis Bronchitis organism: unspecified organism Qualified Codes: J20.9 - Acute bronchitis, unspecified HODAN ENRIQUE APRN November 14, 2018 11:44
[2018-11-14] MEDS ORDERED: IPRATRPIUM/ALBUTEROL 0.5/2.5MG 3 ML NEBU. NEB ONE (11:45)
[2018-11-14] MEDS ORDERED: ACETAMINOPHEN 500 MG TABLET PO ONE (11:45)
[2018-11-14] MEDS ORDERED: HYDROcodon/APAP 7.5/325MG ORAL 15 ML SOLUTION PO ONE (11:45)
[2018-11-14] MEDS ORDERED: predniSONE 10 MG TABLET PO ONE (11:45)
[2018-11-14] MEDS ORDERED: ONDANSETRON ODT 4 MG TAB.RAPDIS. PO ONE (11:45)
[2018-11-14] MEDS ORDERED: BENZONATATE 100 MG CAPSULE. PO ONE (11:45)
[2018-11-14 11:52] VITALS: BP 175/95
--- NOTE | 2018-11-14 12:07 | RAD ---
CHEST PA LATERAL History: Cough, chest pain Comparison: June 09, 2018 Findings: 2 views of the chest are submitted. There is no infiltrate, pneumothorax, or effusion. Pericardial cardiac silhouette is within normal limits in size. Impression: 1. There is no radiographic evidence of acute cardiopulmonary disease. Electronically signed by: Mirza Laboy MD (11/14/2018 12:04 PM) [id number]
[2018-11-14] MEDS ORDERED: PRED50TA PO (12:46)
[2018-11-14] MEDS ORDERED: HYDR5SUS PO (12:46)
[2018-11-14] MEDS ORDERED: VENTOLIN HFA18 GM INH (12:46)
[2018-11-14] MEDS ORDERED: AZIT250T PO (12:46)
== END 2018-11-14 12:52 | disposition home or self-care (01) ==
LOC: ER 11:13
DX: J20.9 Acute bronchitis, unspecified (principal); I10 Essential (primary) hypertension; Z86.718 Personal history of other venous thrombosis and embolism; Z90.49 Acquired absence of other specified parts of digestive tract; Z98.890 Other specified postprocedural states; Z98.51 Tubal ligation status
CPT/HCPCS: 71046; 94640; 99284; J7512; J7620; Q0162